=== PATIENT | female | born 1950 | race Caucasian/White ===

== ENCOUNTER → 2017-05-20 | Outpatient (CLI) | payer MEDICARE, OTHER ==
[2017-05-20 10:18] LABS: Basophils # (A) 0.1 k/uL (0-0.2); Basophils % (A) 1 %; CH 30.4; CHCM 31.6; Eosinophils # (A) 0.1 k/uL (0-0.7); Eosinophils % (A) 1 %; HCT 42.7 % (34.0-46.0); HDW 2.13; HGB 13.9 gm/dL (11.4-16.0); Luc # (Auto) 0.15; Luc % (Auto) 2; Lymphocytes # (A) 1.8 k/uL (1.0-4.8); Lymphocytes % (A) 19 %; MCH 31.3 pg (25.0-35.0); MCHC 32.5 g/dL (31.0-37.0); MCV 96.5 fL (80.0-100.0); Mean Platelet Volume 7.4; Monocytes # (A) 0.5 k/uL (0-1.0); Monocytes % (A) 6 %; Neutrophils # (A) 6.9 k/uL (1.3-7.7); Neutrophils % (A) 72 %; RBC 4.43 m/uL (3.80-5.40); RDW 13.2 % (11.5-15.5); WBC 9.6 k/uL (3.8-10.6); WBC (Perox) 9.62
[2017-05-20 10:19] LABS: Anion Gap 13 mmol/L; Blood Urea Nitrogen 15 mg/dL (7-17); Carbon Dioxide 23 mmol/L (22-30); Chloride 107 mmol/L (98-107); Non-African American GFR(MDRD) >60 (>60 ml/min/1.73 sqM); Potassium 4.6 mmol/L (3.5-5.1); Sodium 143 mmol/L (137-145)
== END | disposition home or self-care (01) ==
LOC: LABWHC1 09:25
PROVIDERS: ATTEND Obstetrics & Gynecology
DX: Z01.810 Encounter for preprocedural cardiovascular examination (principal); Z01.812 Encounter for preprocedural laboratory examination
CPT/HCPCS: 36415; 80051; 82565; 84520; 85025; 87086

== ENCOUNTER 2017-05-28 07:39 | Day surgery (SDC) | payer MEDICARE, OTHER ==
[2017-05-20 15:49] VITALS: BMI 28.3
[~2017-05-28 07:39] MED LIST: DEXAMETHASONE SOD PHOSPHATE 10 MG/ML 1 ML VIAL IV ONE; LEVOFLOXACIN 500MG-D5W PMX 500 MG in DEXTROSE/WATER 1 100ML.BAG IVPB ONE; ONDANSETRON 4 MG/2 ML VIAL IVP ONE
[2017-05-28] MEDS: LACTATED RINGERS 1,000 ML IV SCH (08:07)
[2017-05-28] MEDS ORDERED: LIDOCAINE 1% 20 ML VIAL (10MG/ML) FOR IV START INTRADERMA ONE (08:08)
[2017-05-28] MEDS ORDERED: SUCCINYLCHOLINE CHLORIDE 100 MG/5 ML SYR IV ONE (09:58)
[2017-05-28] MEDS ORDERED: PROPOFOL 10 MG/ML 20 ML VIAL IV ONE (09:58)
[2017-05-28] MEDS ORDERED: fentaNYL (PF) 50 MCG/ML 2 ML AMP ONE (09:58)
[2017-05-28] MEDS ORDERED: MIDAZOLAM 2 MG/2 ML VIAL ONE (09:58)
[2017-05-28] MEDS ORDERED: LIDOCAINE 1% INJ 10MG/ML (20 ML MDV) ONE (09:58)
[2017-05-28] MEDS ORDERED: KETOROLAC 30 MG/ML 1 ML VIAL ONE (09:58)
[2017-05-28] MEDS ORDERED: BUPIVACAIN-EPI 0.5%-1:200,000 30 ML VIAL SQ ONE (10:17)
[2017-05-28] MEDS ORDERED: BACITRACIN 500 UNIT/GM OINT 28.4 GM TUBE TOPICAL ONE (10:17)
[2017-05-28] MEDS ORDERED: GENTAMICIN IN NACL ISO-OSM PMX 80 MG/100 ML BAG IV ONE (10:17)
[2017-05-28] MEDS ORDERED: VASOPRESSIN 20 UNIT/ML 1 ML VIAL SQ ONE (10:18)
[2017-05-28] MEDS ORDERED: METOCLOPRAMIDE 5 MG/ML 2 ML VIAL IVP PRN (10:44)
[2017-05-28] MEDS ORDERED: ZOLPIDEM 5 MG TAB PO PRN (10:44)
[2017-05-28] MEDS ORDERED: IBUPROFEN 600 MG TAB PO PRN (10:44)
[2017-05-28] MEDS ORDERED: ONDANSETRON 4 MG/2 ML VIAL IVP PRN (10:44)
[2017-05-28] MEDS ORDERED: SIMETHICONE 80 MG CHEWABLE PO PRN (10:44)
--- NOTE | 2017-05-28 10:44 | P.OP ---
Date of Procedure: 05/28/17 Preoperative Diagnosis: Grade 3-4 cystocele, stress urinary incontinence Postoperative Diagnosis: Same Procedure(s) Performed: Anterior repair, mid urethral sling, cystoscopy Implants: Anesthesia: GETA Surgeon: Kim Wilkins Header Set Up Operator #1: Obey Desai Estimated Blood Loss (ml): 25 Urine output (ml): 200 Pathology: none sent Condition: stable Disposition: PACU Indications for Procedure: Operative Findings: Description of Procedure: Patient is brought to the operating suite where a general anesthetic is administered without difficulty. She is then placed in the dorsal lithotomy position. Antibiotics are given. The appropriate timeout is performed to assure proper patient and procedural identification. The perineal body is prepped and draped in usual sterile fashion. The bladder is drained for approximately 200 mL of clear yellow urine. A weighted speculum was placed into the vagina and the uterosacral cardinal ligament dimples are identified and grasped with Allis clamps. A scalpel is used across in between the 2 Allis clamps. The vaginal mucosa is then injected with dilute Pitressin solution. Metzenbaum scissors are used in the midline to underlying the mucosa from the underlying fascial plane. The mucosa is open to approximately 1.5 cm inferior to the urethra. Sponge rolled finger is used to separate the overlying mucosa from the underlying fascial plane. 2-0 Vicryl sutures are used then in an interrupted fashion to reduce the cystocele. Dr. Desai is in the operating room as assistant district attorney, and then complete his portion of the procedure. Please see separate dictation. After cystoscopy reveals a negative bladder cavity, the Metzenbaum scissors are used to trim the redundant mucosa. 2-0 Vicryl sutures used in a running locking fashion to close the mucosa for excellent reapproximation and hemostasis. The vagina is packed with a 1 inch iodophor gauze with basic tracing. All sponge needle and enhancement counts are correct at the and of our procedure. Patient is brought back to the recovery room in very good condition with stable vital signs including blood pressure 118/67, pulse 60, 99 % O2 saturation. Toradol is given prior to leaving the operative suite.
[2017-05-28] MEDS ORDERED: MORPHINE PCA 30 MG/30 ML SYRINGE IV PRN (10:45)
[2017-05-28] MEDS ORDERED: NALOXONE 0.4 MG/ML 1 ML VIAL IV PRN (10:45)
--- NOTE | 2017-05-28 11:06 | P.OP ---
Date of Procedure: 05/28/17 Preoperative Diagnosis: Stress urinary incontinence Postoperative Diagnosis: Stress urinary incontinence Procedure(s) Performed: [employer] Obturyx mid urethral sling and cystoscopy Implants: Anesthesia: JOSE FRANCISCOA Surgeon: Obey Desai Pathology: none sent Condition: stable Disposition: PACU Indications for Procedure: The patient is a 67-year-old female with pelvic organ prolapse and urinary leakage with coughing and straining. On examination the patient has a hypermobile bladder neck and the dynamic evaluation has confirmed stress urinary incontinence. Elevation of the periurethral tissue stopped the leakage. The patient also has a grade 2-[address] Wilkins plans anterior colporrhaphy. A synthetic mid urethral sling will be performed under the same anesthetic for treatment of the stress incontinence. Operative Findings: Description of Procedure: The patient was taken to the operating suite where general anesthesia via orotracheal intubation was instituted. The patient was placed in the dorsal lithotomy position with her lower legs suspended on padded Yogi stirrups. Pneumatic compression stockings were applied to the lower legs. A Betadine douche followed by a Betadine prep to the lower abdomen and groins and perineum was then performed. Dr. Wilkins initially began by making a midline incision in the anterior vagina which was extended to approximately the mid urethral area. She then dissected the vaginal mucosa away from the underlying tissue Dr. Wilkins then placed the sutures for the anterior colporrhaphy. A 16 Fr Perez catheter was then inserted to define the bladder neck. 7 or 8 mm incisions were made in the right and left groin at a level adjacent to the clitoris. A curved introducer was passed through the right groin incision, through the obturator foramen superior to the inferior pubic ramus and then directed out lateral to the mid urethra with a finger placed in the vaginal incision. One and of the Obturyx graft was attached to the introducer which was pulled back out into the groin incision. An identical procedure was then performed on the left side where a curved introducer was passed through the groin incision, directed through the obturator foramen superior to the inferior pubic ramus and then out lateral to the mid urethra with a finger placed in the vaginal incision. The other end of the graft was attached to the introducer which was then pulled back out into the groin incision. The Perez catheter was removed. Cystoscopy was performed using the 17[place] sheath and 30 lens. The bladder was examined. Both ureteral orifices were of normal location and configuration and effluxed clear urine. The bladder was free of tumor foreign body and perforation. The cystoscope was withdrawn and the 16-[place] Perez catheter was reinserted. A Kimmy clamp was then placed between the mid urethra and graft and the graft was pulled up to the Kimmy clamp. The plastic sheathing of the graft was removed. The ends the graft were then trimmed below the skin level in the right and left groin. Dr. Wilkins completed the procedure by trimming the redundant vaginal tissue and closing it with running locked 2-0 Vicryl. Bacitracin impregnated iodoform gauze was then placed into the vagina for packing. Mastisol and Steri-Strips were placed over the groin incisions A she tolerated the procedure well and left the operative room awake and in satisfactory condition blood loss during the complete procedure was less than 25 mL final sponge needle and is wearing cons were reported as correct patient was returned to the recovery room awake extubated and in satisfactory condition.
[2017-05-28] MEDS: HYDROmorphone 1 MG/ML 1 ML SYRINGE IVP PRN ×2 (11:23→11:33)
[2017-05-28] MEDS: KETOROLAC 30 MG/ML 1 ML VIAL IVP PRN (16:29)
[2017-05-29 01:23] VITALS: RESP 16
[2017-05-29] MEDS: LACTATED RINGERS 1,000 ML IV SCH (02:54)
[2017-05-29] MEDS: KETOROLAC 30 MG/ML 1 ML VIAL IVP PRN (04:57)
--- NOTE | 2017-05-29 07:05 | P.DS ---
Providers Date of admission: 05/28/17 16:30 Attending physician: Kim Wilkins [facility] Course: This is a 67-year-old white female who presented with an increasingly symptomatic grade 3 cystocele and stress urinary incontinence. Preoperative evaluation was consistent with same, and patient elected to proceed with cystocele repair and transvaginal tape procedure per Dr. weiner her. Please see dictated history and physical for details. Patient underwent cystocele repair and transvaginal tape on 05/28/2017 without difficulty. Vaginal packing was placed. Cystoscopy after procedure was negative. Please see dictated operative notes for details. This morning the patient is doing well. She complains of minimal pain. Vaginal packing and Perez catheter had been removed. Bladder training has commenced. Patient is passing flatus and tolerating regular diet. She is ambulating without issue. Vital signs upon stable and she remains afebrile. She denies CVA tenderness, abdomen is soft and nontender, extremities are negative, chest is clear. Patient will likely be discharged home later today in very good condition. This is pending successful void and post void residual measurement. She will use [id number] medications as needed for pain. I have asked her to call me with any fevers shakes or chills, foul smelling or bloody vaginal drainage, with any pain not alleviated by [id number] products, or indeed with any concerns. She will follow-up with me in the office in 2 weeks, and follow-up with Dr. weiner are as per his recommendations. Resume all home medications. Patient Condition at Discharge: Good Plan - Discharge Summary New Discharge Prescriptions: No Action Meloxicam [Mobic] 7.5 mg PO DAILY Ranitidine HCl [Zantac] 150 mg PO BID Gabapentin [Neurontin] 800 mg PO QID Tiotropium 18 Mcg/Puff [Spiriva] 1 cap INHALATION RT-DAILY Albuterol Inhaler [Ventolin Hfa Inhaler] 1 puff INHALATION RT-Q4H PRN PRN Reason: Shortness Of Breath Nicotine 14Mg/24Hr Patch [Habitrol 14Mg/24Hr Patch] 1 patch TRANSDERM DAILY Discharge Medication List Albuterol Inhaler [Ventolin Hfa Inhaler] 1 puff INHALATION RT-Q4H PRN 05/20/17 [ History] Gabapentin [Neurontin] 800 mg PO QID 05/20/17 [History] Meloxicam [Mobic] 7.5 mg PO DAILY 05/20/17 [History] Ranitidine HCl [Zantac] 150 mg PO BID 05/20/17 [History] Tiotropium 18 Mcg/Puff [Spiriva] 1 cap INHALATION RT-DAILY 05/20/17 [History] Nicotine 14Mg/24Hr Patch [Habitrol 14Mg/24Hr Patch] 1 patch TRANSDERM DAILY 06/03 [History] Follow up Appointment(s)/Referral(s): Kim Wilkins MD [STAFF PHYSICIAN] - 2 Weeks Discharge Disposition: HOME SELF-CARE
[2017-05-29] MEDS: Acetaminophen-Codeine 300-30mg TAB PO PRN ×2 (07:30→11:38)
--- NOTE | 2017-05-29 07:46 | P.PN ---
Progress Note - Text Patient is afebrile and comfortable now that her catheter and vaginal packing have been removed. She has minimal vaginal drainage. Postvoid residual will be checked this morning and if it is low she will be discharged and will be seen back by me early next week. She is to refrain from any heavy lifting or straining and has no dietary limitations. She will continue her preoperative medications.
[2017-05-29 10:41] VITALS: BP 108/62; PULSE 70; TEMP 97.8
== END 2017-05-29 11:55 | disposition home or self-care (01) ==
LOC: OR 07:39 → 6PED 10:44 → OR 16:30 → 6PED 23:32
PROVIDERS: ADMIT Obstetrics & Gynecology; ATTEND Obstetrics & Gynecology
DX: N39.46 Mixed incontinence (principal); J44.9 Chronic obstructive pulmonary disease, unspecified; N81.10 Cystocele, unspecified; Z87.891 Personal history of nicotine dependence; F41.9 Anxiety disorder, unspecified; Z79.82 Long term (current) use of aspirin; Z79.1 Long term (current) use of non-steroidal anti-inflammatories (NSAID); Z79.899 Other long term (current) drug therapy; K21.9 Gastro-esophageal reflux disease without esophagitis
CPT/HCPCS: 57240; 57288; 86900; 86901; 86850; G0378 ×2; C1771; C2627; J1580; J2250; J1100; J2405; J1956; J2001; J3010; J1885 ×2; J1170; J0330; J2704; J2270

== ENCOUNTER → 2019-06-10 | Outpatient (CLI) | payer MEDICARE, OTHER ==
[~2019-06-10] MED LIST changes: +DENOSUMAB 60 MG/ML 1 ML SYRINGE SQ ONE; -DEXAMETHASONE SOD PHOSPHATE 10 MG/ML 1 ML VIAL IV ONE; -LEVOFLOXACIN 500MG-D5W PMX 500 MG in DEXTROSE/WATER 1 100ML.BAG IVPB ONE; -ONDANSETRON 4 MG/2 ML VIAL IVP ONE
[2019-06-10 14:30] VITALS: BP 143/88; PULSE 65; RESP 16; TEMP 97.7
== END | disposition home or self-care (01) ==
LOC: PROCWHC3 14:05
PROVIDERS: ATTEND Family Medicine
DX: M47.9 Spondylosis, unspecified (principal); M41.9 Scoliosis, unspecified
CPT/HCPCS: 96372; J0897

== ENCOUNTER 2019-10-22 12:42 | Emergency (ER) | payer MEDICARE, OTHER ==
--- NOTE | 2019-10-22 14:47 | CT ---
EXAMINATION TYPE: CT brain amita unger DATE OF EXAM: 10/22/2019 COMPARISON: None HISTORY: Left sided injury today with no LOC CT DLP: 1198.5 mGycm, Automated exposure control for dose reduction was used. CONTRAST: Patient injected with 0 mL of Isovue 300. CT of the brain is performed utilizing 3 mm thick sections through the posterior fossa and 3 mm thick sections through the remaining calvarium. Study is performed within 24 hours of arrival to the hospital. No abnormal hyperdensity is present to suggest an acute intracranial hemorrhage. No mass lesion is evident. No acute infarcts are evident. Mild periventricular white matter hypodensity is present, likely on t he basis of chronic white matter ischemic changes. Ventricles and sulci are appropriate for the patient age. Paranasal sinuses and mastoid air cells within the [id number] are clear. IMPRESSIONS: 1. Mild chronic appearing periventricular white matter ischemic changes CT cervical spine. COMPARISON: None CT of the cervical spine is performed in the axial plane at 2 mm thick sections. Reconstructed image s in the coronal, and sagittal plane are reviewed on the computer. No acute fractures are evident. There is a kyphosis centered at C5-6. There is disc space narrowing is present. Some endplate spurring is present C5-6 with mild anterior t hecal sac contact. Vertebral body heights are preserved. No spinal canal stenosis is evident. No neural foraminal stenosis is evident. IMPRESSIONS: 1. Mild degenerative disc changes diffusely throughout the cervical spine
--- NOTE | 2019-10-22 14:56 | ED ---
Head Injury HPI - General Chief complaint: Head Injury Stated complaint: Head injury Time Seen by Provider: 10/22/19 13:09 Source: patient, RN notes reviewed Mode of arrival: ambulatory Limitations: no limitations - History of Present Illness Initial comments: 69-year-old female presents emergency Department with chief complaint head injury. Patient states his happened on Saturday. Patient states that she had another fall herself striking her on the left side of her head. Patient was a left-sided headache, neck pain. Patient states that she was seen by her orthopedic physician for left wrist pain and was advised to come here for evaluation. Patient denies any focal weakness has had slight nausea no vomiting no blurred vision denies any chest pain or shortness breath. - Related Data Home Medications Medication Instructions Recorded Confirmed Albuterol Inhaler [Ventolin Hfa 1 puff INHALATION RT-Q4H PRN 05/20/17 06/10/19 Inhaler] Gabapentin [Neurontin] 800 mg PO QID 05/20/17 06/10/19 Meloxicam [Mobic] 7.5 mg PO DAILY 05/20/17 06/10/19 Ranitidine HCl [Zantac] 150 mg PO BID 05/20/17 06/10/19 Tiotropium 18 Mcg/Puff [Spiriva] 1 cap INHALATION RT-DAILY 05/20/17 06/10/19 Acetaminophen [Tylenol Extra 1,000 mg PO QID PRN 06/10/19 06/10/19 Strength] Naproxen Sodium [Aleve] 2 tab PO DIRECTED PRN 06/10/19 06/10/19 traMADol HCL [Ultram] 50 mg PO TID 06/10/19 06/10/19 Allergies/Adverse reactions: Allergies Allergy/AdvReac Type Severity Reaction Status Date / Time No Known Allergies Allergy Verified 10/22/19 12:52 Review of Systems ROS Statement: Those systems with pertinent positive or pertinent negative responses have been documented in the HPI. ROS Other: All systems not noted in ROS Statement are negative. Past Medical History Past Medical History: COPD, CVA/TIA, Osteoarthritis (OA) Additional Past Medical History / Comment(s): "MINI STROKES", BLADDER LEAKAGE, CHRONIC NECK PAIN , History of Any Multi-Drug Resistant Organisms: None Reported Past Surgical History: Appendectomy, Cholecystectomy Additional Past Surgical History / Comment(s): DENTAL SURGERY ,EXCISION GANGLION CYST -RIGHT HAND Past Anesthesia/Blood Transfusion Reactions: No Reported Reaction Past Psychological History: Anxiety Smoking Status: Current every day smoker Past Alcohol Use History: None Reported Past Drug Use History: None Reported - Past Family History Mother Family Medical History: Cancer General Exam Limitations: no limitations General appearance: alert, in no apparent distress Head exam: Present: atraumatic, normocephalic, normal inspection Eye exam: Present: normal appearance, PERRL, EOMI. Absent: scleral icterus, conjunctival injection, periorbital swelling ENT exam: Present: normal exam, mucous membranes moist Neck exam: Present: normal inspection, full ROM. Absent: tenderness, meningismus, lymphadenopathy Respiratory exam: Present: normal lung sounds bilaterally. Absent: respiratory distress, wheezes, rales, rhonchi, stridor Cardiovascular Exam: Present: regular rate, normal rhythm, normal heart sounds. Absent: systolic murmur, diastolic murmur, rubs, gallop, clicks Neurological exam: Present: alert, oriented X3, CN II-XII intact, reflexes normal. Absent: motor sensory deficit Course Vital Signs 10/22/19 10/22/19 12:49 15:15 Temperature 97.5 F L 97.9 F Pulse Rate 65 84 Respiratory 16 18 Rate Blood Pressure 165/91 166/89 O2 Sat by Pulse 99 97 Oximetry Medical Decision Making - Medical Decision Making CT of the brain and C-spine are negative for acute findings. Patient was discharged in stable condition patient will return for any worsening symptoms. Disposition Clinical Impression: Head injury, Neck pain Disposition: HOME SELF-CARE Condition: Stable Instructions (If sedation given, give patient instructions): Head Injury (ED) Additional Instructions: Please return to the Emergency Department if symptoms worsen or any other concerns. Is patient prescribed a controlled substance at d/c from ED?: No Referrals: Darian Davidson MD [Primary Care Provider] - 1-2 days Time of Disposition: 14:56
[2019-10-22 15:16] VITALS: BP 166/89; PULSE 84; RESP 18; TEMP 97.9
== END 2019-10-22 15:15 | disposition home or self-care (01) ==
LOC: EC 12:42
DX: S09.90XA Unspecified injury of head, initial encounter (principal); M54.2 Cervicalgia; J44.9 Chronic obstructive pulmonary disease, unspecified; M19.90 Unspecified osteoarthritis, unspecified site; F41.9 Anxiety disorder, unspecified; F17.200 Nicotine dependence, unspecified, uncomplicated; Z79.51 Long term (current) use of inhaled steroids; Z79.1 Long term (current) use of non-steroidal anti-inflammatories (NSAID); Z79.899 Other long term (current) drug therapy; Z86.73 Personal history of transient ischemic attack (TIA), and cerebral infarction without residual deficits; W17.89XA Other fall from one level to another, initial encounter
CPT/HCPCS: 70450; 72125; 99284

== ENCOUNTER → 2019-11-30 | Outpatient (CLI) | payer MEDICARE, OTHER ==
[2019-11-30 20:23] LABS: Anti-DNA, DS unit <1.0 IU/mL; Anti-Smith Ab Interp NEGATIVE (NEGATIVE); Cyclic Citrull Pep IgG Unit <0.5 U/mL; Cyclic Citrullinated Pep IgG NEGATIVE (NEGATIVE); DNA Double-Stranded NEGATIVE (NEGATIVE); JO-1 IgG Antibody <0.2 AI; Scleroderma SC-70 Ab <0.2 AI
== END | disposition home or self-care (01) ==
LOC: LABWHC1 11:57
PROVIDERS: ATTEND Nurse Practitioner Family
DX: M25.50 Pain in unspecified joint (principal)
CPT/HCPCS: 36415; 83516; 86038; 86200; 86225; 86235

== ENCOUNTER 2023-04-03 17:55 | Inpatient (IN) | payer MEDICARE, OTHER ==
--- NOTE | 2023-04-03 18:32 | ED ---
General Adult HPI - General Chief complaint: Altered Mental Status Stated complaint: AMS Time Seen by Provider: 04/03/23 18:13 Source: EMS Mode of arrival: EMS Limitations: no limitations - History of Present Illness Initial comments: Dictation was produced using [employer] dictation software. please excuse any grammatical, word or spelling errors. Chief Complaint: 72-year-old female presents to the emergency department for her syncopal episode History of Present Illness: Patient is a 2-year-old female. Patient present illness obtained from boyfriend son at the bedside. History also obtained from patient herself. Patient is suitable episode. She was at her boyfriends house eating when she became unresponsive. She had food stuck in her mouth. She do not have any convulsive activity. She was completely out of it for a couple minutes. Patient has chronic pain. She is currently on pain medications. Exposed of a computed tomography scan of her right upper extremity to evaluate for causes of right upper extremity pain. The ROS documented in this emergency department record has been reviewed and confirmed by me. Those systems with pertinent positive or negative responses have been documented in the HPI. All other systems are other negative and/or noncontributory. - Related Data Home Medications Medication Instructions Recorded Confirmed Acetaminophen [Tylenol Extra 1,000 mg PO QID PRN 06/10/19 04/03/23 Strength] HYDROcodone/APAP 10-325MG [[place] 1 tab PO TID PRN 04/03/23 04/03/23 10-325] Naloxone HCl [Narcan] 4 mg NASAL DIRECTED PRN 04/03/23 04/03/23 Omeprazole [PriLOSEC] 20 mg PO DAILY 04/03/23 04/03/23 tiZANidine [Zanaflex] 4 mg PO DAILY 04/03/23 04/03/23 Allergies Allergy/AdvReac Type Severity Reaction Status Date / Time codeine Allergy Rash/Hives Verified 04/03/23 19:30 Review of Systems ROS Statement: Those systems with pertinent positive or pertinent negative responses have been documented in the HPI. ROS Other: All systems not noted in ROS Statement are negative. Past Medical History Past Medical History: COPD, CVA/TIA, Osteoarthritis (OA) Additional Past Medical History / Comment(s): "MINI STROKES", BLADDER LEAKAGE, CHRONIC NECK PAIN , History of Any Multi-Drug Resistant Organisms: None Reported Past Surgical History: Appendectomy, Cholecystectomy Additional Past Surgical History / Comment(s): DENTAL SURGERY ,EXCISION GANGLION CYST -RIGHT HAND Past Anesthesia/Blood Transfusion Reactions: No Reported Reaction Past Psychological History: Anxiety Smoking Status: Former smoker Past Alcohol Use History: Rare Past Drug Use History: None Reported - Past Family History Mother Family Medical History: Cancer General Exam - General Exam Comments Initial Comments: PHYSICAL EXAM: General Impression: Alert and oriented x3, not in acute distress, mildly pale HEENT: Normocephalic atraumatic, extra-ocular movements intact, pupils equal and reactive to light bilaterally, dry mucous membranes. Cardiovascular: Heart regular rate and rhythm Chest: Able to complete full sentences, no retractions, no tachypnea Abdomen: abdomen soft, non-tender, non-distended, no organomegaly Musculoskeletal: Pulses present and equal in all extremities, no peripheral edema Motor: no focal deficits noted Neurological: CN II-XII grossly intact, no focal motor or sensory deficits noted Skin: Intact with no visualized rashes Psych: Normal affect and mood Limitations: no limitations Course Vital Signs 04/03/23 04/03/23 04/03/23 17:57 18:16 19:31 Temperature 97.7 F Pulse Rate 62 96 Respiratory 18 18 18 Rate Blood Pressure 83/33 94/51 O2 Sat by Pulse 95 97 Oximetry 04/03/23 19:33 Temperature Pulse Rate 85 Respiratory 18 Rate Blood Pressure 80/54 O2 Sat by Pulse 96 Oximetry EKG Findings - EKG Comments: EKG Findings:: My EKG interpretation: Ventricular rate 61, sinus rhythm,. 160, QRS 82, QTc 4:30. No UT prolongation, no QTC prolongation, no ST or T-wave changes noted. Overall, this EKG is unremarkable Medical Decision Making - Medical Decision Making Was pt. sent in by a medical professional or institution (, PA, QUILL STRIPPER, urgent care, hospital, or residential...) When possible be specific @ -No Did you speak to anyone other than the patient for history (EMS, parent, family, police, friend...)? What history was obtained from this source @ -No Did you review nursing and triage notes (agree or disagree)? Why? @ -I reviewed and agree with nursing and triage notes Were old charts reviewed (outside hosp., previous admission, EMS record, old EKG, old radiological studies, urgent care reports/EKG's, residential records)? Report findings @ -Not applicable Differential Diagnosis (chest pain, altered mental status, abdominal pain women, abdominal pain men, vaginal bleeding, musculoskeletal, weakness, fever, dyspnea, syncope, headache, dizziness, GI bleed, back pain, seizure, CVA, palpatations, mental health)? @ -Differential Weakness: Hypoglycemia, shock, sepsis, hyponatremia, anemia, infection, ND, ETOH, adverse medicine reaction, overdose, stroke, this is not meant to be an all-inclusive list. Differential Syncope: Valvular disease, hypertrophic cardiomyopathy, pulmonary embolism, tamponade, tachycardia, bradycardia, ND, hypovolemia, hemorrhage, dissection, anemia, intracranial hemorrhage, seizure, hypoglycemia, carbon monoxide poisoning, this is not meant to be an all-inclusive list. EKG interpreted by me (3pts min.). @ -See above X-rays interpreted by me (1pt min.). @ -None done CT interpreted by me (1pt min.). @ -None done U/S interpreted by me (1pt. min.). @ -None done What testing was considered but not performed or refused? (CT, X-rays, U/S, labs)? Why? @ -None What meds were considered but not given or refused? Why? @ -None Did you discuss the management of the patient with other professionals (prof mijares i.eOvidio Reilly, PA, QUILL STRIPPER, lab, RT, psych nurse, marriage and family social worker, advanced manufacturing engineer, teacher, tactical response group officer, rn case management)? Give summary @ -Labs and imaging an vital signs trend's were discussed with Dr. Viveros for admission Was smoking cessation discussed for >3mins.? @ -No Was critical care preformed (if so, how long)? @ -Yes, 33 minutes Were there social determinants of health that impacted care today? How? (Homelessness, low income, unemployed, alcoholism, drug addiction, transportation, low edu. Level, literacy, decrease access to med. care, penitentiary, rehab)? @ -No Was there de-escalation of care discussed even if they declined (Discuss DNR or withdrawal of care, Hospice)? DNR status @ -No What co-morbidities impacted this encounter? (DM, HTN, Smoking, COPD, CAD, Cancer, CVA, ARF, Chemo, Hep., AIDS, mental health diagnosis, sleep apnea, morbid obesity)? @ -None Was patient admitted / discharged? Hospital course, mention meds given and route, prescriptions, significant lab abnormalities, going to OR and other pertinent info. @ -72 Year-old female presents after syncopal event today. Patient has no known cardiac history. Initial vital signs shows hypertension. Patient was given multiple boluses of IV fluids with improvement. Laboratory evaluation obtained. Hemoglobin is 9.2. No recent comparable labs. From 2017 she had a hemoglobin of 13.9. Coag panel is unremarkable. Metabolic panel shows mild hypokalemia. Troponin is negative. Rest of labs unremarkable. Patient will be admitted to the hospital. Suspect that patient's hypotension secondary to dehydration. Undiagnosed new problem with uncertain prognosis? @ -No Drug Therapy requiring intensive monitoring for toxicity (Heparin, Nitro, Insulin, Cardizem)? @ -No Were any procedures done? @ -No Diagnosis/symptom? Acute, or Chronic, or Acute on Chronic? Uncomplicated (without systemic symptoms) or Complicated (systemic symptoms)? @ -1. Acute syncope, hypertension secondary to dehydration Side effects of treatment? @ -No Exacerbation, Progression, or Severe Exacerbation? @ -No Poses a threat to life or bodily function? How? (Chest pain, USA, ND, pneumonia, PE, COPD, DKA, ARF, appy, cholecystitis, CVA, Diverticulitis, Homicidal, Suicidal, threat to staff... and all critical care pts) @ -yes - Lab Data Result diagrams: 04/03/23 18:42 04/03/23 18:42 Lab Results 04/03/23 04/03/23 04/03/23 Range/Units 18:42 18:42 18:42 WBC 8.6 (3.8-10.6) k/uL RBC 3.00 L (3.80-5.40) m/uL Hgb 9.2 L (11.4-16.0) gm/dL Hct 28.9 L (34.0-46.0) % MCV 96.4 (80.0-100.0) fL MCH 30.8 (25.0-35.0) pg MCHC 31.9 (31.0-37.0) g/dL RDW 13.2 (11.5-15.5) % Plt Count 387 (150-450) k/uL MPV 8.1 Neutrophils % 76 % Lymphocytes % 14 % Monocytes % 6 % Eosinophils % 2 % Basophils % 0 % Neutrophils # 6.5 (1.3-7.7) k/uL Lymphocytes # 1.2 (1.0-4.8) k/uL Monocytes # 0.5 (0-1.0) k/uL Eosinophils # 0.2 (0-0.7) k/uL Basophils # 0.0 (0-0.2) k/uL PT 11.7 (9.0-12.0) sec INR 1.1 (<1.2) APTT 26.8 (22.0-30.0) sec Sodium 140 (137-145) mmol/L Potassium 3.0 L (3.5-5.1) mmol/L Chloride 109 H (98-107) mmol/L Carbon Dioxide 21 L (22-30) mmol/L Anion Gap 10 mmol/L BUN 16 (7-17) mg/dL Creatinine 0.76 (0.52-1.04) mg/dL Est GFR (CKD-EPI)AfAm 90 (>60 ml/min/1.73 sqM) Est GFR (CKD-EPI)NonAf 78 (>60 ml/min/1.73 sqM) Glucose 113 H (74-99) mg/dL Plasma Lactic Acid Sandro (0.7-2.0) mmol/L Calcium 8.2 L (8.4-10.2) mg/dL Magnesium 1.8 (1.6-2.3) mg/dL Total Bilirubin 0.5 (0.2-1.3) mg/dL AST 15 (14-36) U/L ALT 11 (4-34) U/L Alkaline Phosphatase 69 (38-126) U/L Troponin I (0.000-0.034) ng/mL Total Protein 5.5 L (6.3-8.2) g/dL Albumin 2.7 L (3.5-5.0) g/dL 04/03/23 04/03/23 Range/Units 18:42 18:42 WBC (3.8-10.6) k/uL RBC (3.80-5.40) m/uL Hgb (11.4-16.0) gm/dL Hct (34.0-46.0) % MCV (80.0-100.0) fL MCH (25.0-35.0) pg MCHC (31.0-37.0) g/dL RDW (11.5-15.5) % Plt Count (150-450) k/uL MPV Neutrophils % % Lymphocytes % % Monocytes % % Eosinophils % % Basophils % % Neutrophils # (1.3-7.7) k/uL Lymphocytes # (1.0-4.8) k/uL Monocytes # (0-1.0) k/uL Eosinophils # (0-0.7) k/uL Basophils # (0-0.2) k/uL PT (9.0-12.0) sec INR (<1.2) APTT (22.0-30.0) sec Sodium (137-145) mmol/L Potassium (3.5-5.1) mmol/L Chloride (98-107) mmol/L Carbon Dioxide (22-30) mmol/L Anion Gap mmol/L BUN (7-17) mg/dL Creatinine (0.52-1.04) mg/dL Est GFR (CKD-EPI)AfAm (>60 ml/min/1.73 sqM) Est GFR (CKD-EPI)NonAf (>60 ml/min/1.73 sqM) Glucose (74-99) mg/dL Plasma Lactic Acid Sandro 1.4 (0.7-2.0) mmol/L Calcium (8.4-10.2) mg/dL Magnesium (1.6-2.3) mg/dL Total Bilirubin (0.2-1.3) mg/dL AST (14-36) U/L ALT (4-34) U/L Alkaline Phosphatase (38-126) U/L Troponin I <0.012 (0.000-0.034) ng/mL Total Protein (6.3-8.2) g/dL Albumin (3.5-5.0) g/dL Disposition Clinical Impression: Hypotension Disposition: ADMITTED IP TO THIS [facility] Condition: Fair Is patient prescribed a controlled substance at d/c from ED?: No Referrals: Mulu Love DO [Primary Care Provider] - 1-2 days Decision Time: 20:54
[2023-04-03] MEDS ORDERED: SODIUM CHLORIDE 0.9% 1,000 ML IV STA (18:54)
[2023-04-03] MEDS ORDERED: NALOXONE 0.4 MG/ML 1 ML VIAL IVP STA (18:54)
[2023-04-03 19:08] LABS: Basophils % (A) 0 %; Eosinophils # (A) 0.2 k/uL (0-0.7); Eosinophils % (A) 2 %; HCT 28.9 % (34.0-46.0); HGB 9.2 gm/dL (11.4-16.0); Lymphocytes # (A) 1.2 k/uL (1.0-4.8); Lymphocytes % (A) 14 %; MCH 30.8 pg (25.0-35.0); MCHC 31.9 g/dL (31.0-37.0); MCV 96.4 fL (80.0-100.0); Mean Platelet Volume 8.1; Monocytes # (A) 0.5 k/uL (0-1.0); Monocytes % (A) 6 %; Neutrophils # (A) 6.5 k/uL (1.3-7.7); Neutrophils % (A) 76 %; Platelet Count 387 k/uL (150-450); RDW 13.2 % (11.5-15.5); WBC 8.6 k/uL (3.8-10.6)
[2023-04-03 19:37] LABS: Albumin 2.7 g/dL (3.5-5.0); Calcium 8.2 mg/dL (8.4-10.2); INR 1.1 (<1.2); Magnesium 1.8 mg/dL (1.6-2.3); Partial Thromboplastin Time 26.8 sec (22.0-30.0); Prothrombin Time 11.7 sec (9.0-12.0); Total Bilirubin 0.5 mg/dL (0.2-1.3); Total Protein 5.5 g/dL (6.3-8.2)
[2023-04-03] MEDS: SODIUM CHLORIDE 0.9% 1,000 ML IV SCH (22:04)
[2023-04-04 05:55] LABS: Appearance,Urine Clear (Clear); Bilirubin,Urine Negative (Negative); Blood,Urine Negative (Negative); Color,Urine Light Yellow; Glucose,Urine (UA) Negative (Negative); Ketones,Urine Negative (Negative); Leukocyte Esterase,Urine Negative (Negative); Nitrite,Urine Negative (Negative); Protein,Urine Negative (Negative); Specific Gravity,Urine 1.011 (1.001-1.035); Urobilinogen,Urine <2.0 mg/dL (<2.0)
[2023-04-04 06:20] LABS: Amphetamine Screen,Urine Not Detected (NotDetected); Barbiturate Screen,Urine Not Detected (NotDetected); Benzodiazepines Screen,Urine Detected (NotDetected); Cocaine Screen,Urine Not Detected (NotDetected); Methadone Screen, Urine Not Detected (NotDetected); Opiate Screen,Urine Detected (NotDetected); Oxycodone Screen, Urine Not Detected (NotDetected); Phencyclidine Screen,Urine Not Detected (NotDetected); Tricyclic Antidepressant,Urine Not Detected (NotDetected); Urn Cannabinoid Scrn Detected (NotDetected)
[2023-04-04] MEDS: HYDROcodone/APAP 5-325MG 1 EACH TAB PO PRN ×3 (08:38→21:03)
[2023-04-04] MEDS: SODIUM CHLORIDE 0.9% 1,000 ML IV SCH ×3 (10:10→21:03)
[2023-04-04] MEDS: POTASSIUM CHLORIDE ER 20 MEQ TAB.ER PO SCH ×4 (12:44→23:02)
--- NOTE | 2023-04-04 12:49 | CA ---
Transthoracic Echo Report Name: Mehnaz Carrasco Age: 72 Gender: F : 1950 Exam Date: 04/04/2023 09:57 Exam Location: [facility] Ht (in): 62 Wt (lb): 129 Ordering Physician: Abhi Lam MD ([id number]) Attending/Referring Phys: Carole ZHANG Machine Stamper Leonela Casas RDCS Procedure CPT: Indications: Syncope Cardiac Hx: Technical Quality: Fair Contrast 1: Total Dose (mL): Contrast 2: Total Dose (mL): MEASUREMENTS (Male / Female) Normal Values 2D ECHO LV Diastolic Diameter PLAX 3.3 cm 4.2 - 5.9 / 3.9 - 5.3 cm LV Systolic Diameter PLAX 2.5 cm IVS Diastolic Thickness 1.4 cm 0.6 - 1.0 / 0.6 - 0.9 cm LVPW Diastolic Thickness 1.4 cm 0.6 - 1.0 / 0.6 - 0.9 cm LV Relative Wall Thickness 0.8 RV Internal Dim ED PLAX 2.8 cm LA Volume 31.0 cm??? 18 - 58 / 22 - 52 cm??? M-MODE Aortic Root Diameter MM 3.0 cm LA Systolic Diameter MM 3.2 cm LA Ao Ratio MM 1.1 AV Cusp Separation MM 1.9 cm DOPPLER AV Peak Velocity 167.7 cm/s AV Peak Gradient 11.3 mmHg AV Mean Velocity 104.9 cm/s AV Mean Gradient 5.2 mmHg AV Velocity Time Integral 25.6 cm LVOT Peak Velocity 126.3 cm/s LVOT Peak Gradient 6.4 mmHg LVOT Velocity Time Integral 25.3 cm MV Area PHT 3.0 cm??? Mitral E Point Velocity 61.2 cm/s Mitral A Point Velocity 80.9 cm/s Mitral E to A Ratio 0.8 MV Deceleration Time 252.3 ms TR Peak Velocity 207.5 cm/s TR Peak Gradient 17.2 mmHg Right Ventricular Systolic Press 21.8 mmHg FINDINGS Left Ventricle Moderately increased left ventricular wall thickness. Left ventricular cavity size normal. No obvious regional wall motion abnormalities. Left ventricular ejection fraction is estimated at 55-60 %. Right Ventricle Normal right ventricular size and function. Right ventricular systolic pressure within normal limits. Right Atrium Normal right atrial size. Left Atrium Normal left atrial size. Mitral Valve Structurally normal mitral valve. Mitral valve thickened. Mild mitral annular calcification. Aortic Valve Trileaflet aortic valve. Diffuse thickening (sclerosis) of the aortic valve cusps without reduced excursion. No aortic valve stenosis or regurgitation. Tricuspid Valve Mild tricuspid regurgitation. Pulmonic Valve Trace pulmonic regurgitation. Pericardium No pericardial effusion. Aorta Normal size aortic root and proximal ascending aorta. CONCLUSIONS Normal LV size and systolic function. There is mild concentric LVH. Mild mitral and the calcification mild mitral and tricuspid regurgitation no pulmonary hypertension no pericardial effusion Previewed by: Dr. Laisha Berg MD (Electronically Signed) Final Date: 04 Apr 2023 12:48
--- NOTE | 2023-04-04 14:23 | CONS ---
CONSULTATION CHIEF COMPLAINT: Loss of consciousness. HISTORY OF PRESENT ILLNESS: The patient was brought to the emergency room by her boyfriend who apparently found her to be unresponsive at home. We were told that she had food stuck in her mouth following which she had sudden loss of consciousness. She received Narcan following which she woke up and has been doing fine since. The patient has had a recent fall and had injury involving right upper extremity and is taking pain pills for the same. At the time of my evaluation, the patient appears comfortable at rest and is free of symptoms. EKG shows sinus rhythm with PVCs, had troponin that is negative. Hemoglobin is low, potassium is low. There is no prior history of coronary artery disease or congestive heart failure. There is no prior history of syncope. The patient does not narrate bladder or bowel incontinence or focal neurological deficits. There are no seizures. The patient's loss of consciousness could be related to the pain pills that she was on. PAST MEDICAL HISTORY: Negative for hypertension, diabetes, dyslipidemia. MEDICATIONS AT HOME: 1. Zanaflex. 2. Prilosec. 3. Narcan. 4. [place]. 5. Tylenol. ALLERGIES: To codeine. FAMILY HISTORY: Negative for premature coronary artery disease. SOCIAL HISTORY: Negative for smoking, EtOH abuse, or drug abuse. REVIEW OF SYSTEMS: HEENT: Unremarkable. CARDIAC: As described above. RESPIRATORY: Negative. GI: Negative. GENITOURINARY: Negative. ALLERGY/IMMUNOLOGY: Negative. SKIN: Negative. MUSCULOSKELETAL: Significant for arthritis. PSYCHOSOCIAL: Negative. DERM: Negative. CONSTITUTIONAL: Negative. ONCOLOGICAL: Negative. FALSEWORK BUILDER: Negative. Rest of the system review is not relevant. PHYSICAL EXAMINATION: GENERAL: Comfortable at rest. VITAL SIGNS: Stable. NECK: There is no jugular venous distention. Carotid upstroke is normal. There is no bruit. CHEST: Reveals good air entry bilaterally. HEART: Reveals first and second heart sounds. No gallop. Has a systolic murmur at the left lower sternal border. ABDOMEN: Soft. EXTREMITIES: Did not reveal any edema. Peripheral pulses are felt. ASSESSMENT: Syncope, rule out cardiac causes. PLAN: The patient's syncope seems to be related to the pain pills that she was on. She really responded to Narcan immediately. I will obtain a 2D echo and if this looks normal from cardiac standpoint, she does not require any other workup. We may consider an outpatient Holter and if necessary a stress test. MMODL / IJN: [id number] /
[2023-04-04] MEDS ORDERED: Magnesium Replacement Protocol 1 EACH MISC MISCELLANE PRN (16:37)
[2023-04-04] MEDS ORDERED: Potassium Replacement Protocol 1 EACH MISC MISCELLANE PRN (16:37)
--- NOTE | 2023-04-04 16:52 | P.HPIM ---
History of Present Illness H&P Date: 04/04/23 Chief Complaint: Passed out This is a 72-year-old female with past medical history of chronic pain, COPD, CVA/TIA, gastroesophageal reflux disease, osteoarthritis, anxiety, former nicotine dependence and multiple other medical issues presented to the ER with complaints of syncope. Patient stated while sitting down eating dinner she passed out at the table, does not recall specifics and upon awakening she was on the EMS stretcher. Denies chest pain, palpitations. Reports right arm pain. Reports she recently passed out previously, falling on her right arm, followed u p with [facility], wearing splint, and had been scheduled for a CT. Denies nausea vomiting or diarrhea. Reports does not consume much water. Denies alcohol consumption. Denies constipation reports last bowel movement yesterday.On admission hypotensive with systolic blood pressures in the 80s, hypokalemic potassium 3, Hemoglobin 9.2(prior hemoglobin 13.9 in and 2017) troponin negative 1 , EKG reporting sinus rhythm with PVCs, toxicology detected opiates, benzodiazepines and THC. Review of Systems ROS Statement: Those systems with pertinent positive or pertinent negative responses have been documented in the HPI. ROS Other: All systems not noted in ROS Statement are negative. Past Medical History Past Medical History: COPD, CVA/TIA, GERD/Reflux, Osteoarthritis (OA) Additional Past Medical History / Comment(s): "MINI STROKES", BLADDER LEAKAGE, CHRONIC NECK PAIN , History of Any Multi-Drug Resistant Organisms: None Reported Past Surgical History: Appendectomy, Cholecystectomy Additional Past Surgical History / Comment(s): DENTAL SURGERY ,EXCISION GANGLION CYST -RIGHT HAND Past Anesthesia/Blood Transfusion Reactions: No Reported Reaction Past Psychological History: Anxiety Smoking Status: Former smoker Past Alcohol Use History: Rare Additional Past Alcohol Use History / Comment(s): STARTED SMOKING AT AGE 14 QUIT APRIL 2017 SMOKED 1/2PPD Past Drug Use History: None Reported - Past Family History Mother Family Medical History: Cancer Medications and Allergies Home Medications Medication Instructions Recorded Confirmed Type Acetaminophen [Tylenol Extra 1,000 mg PO QID PRN 06/10/19 04/03/23 History Strength] HYDROcodone/APAP 10-325MG [[place] 1 tab PO TID PRN 04/03/23 04/03/23 History 10-325] Naloxone HCl [Narcan] 4 mg NASAL DIRECTED PRN 04/03/23 04/03/23 History Omeprazole [PriLOSEC] 20 mg PO DAILY 04/03/23 04/03/23 History tiZANidine [Zanaflex] 4 mg PO DAILY 04/03/23 04/03/23 History Allergies Allergy/AdvReac Type Severity Reaction Status Date / Time codeine Allergy Rash/Hives Verified 04/03/23 19:30 Physical Exam Vitals: Vital Signs Temp Pulse Pulse Resp BP BP Pulse Ox 04/04/23 14:00 16 04/04/23 12:48 91 16 147/76 98 04/04/23 10:15 98.0 F 90 18 145/82 96 04/04/23 08:15 96 18 147/84 94 L 04/04/23 05:48 88 18 167/92 96 04/03/23 22:12 87 18 115/70 96 04/03/23 21:04 89 110/67 94 L 04/03/23 19:33 85 18 80/54 96 04/03/23 19:31 18 04/03/23 18:16 96 18 94/51 97 04/03/23 17:57 97.7 F 62 18 83/33 95 Intake and Output 04/04/23 04/04/23 04/04/23 06:59 14:59 22:59 Output Total 700 Balance -700 Output: Urine 700 Other: # Bowel Movements 1 Weight 58.513 kg PHYSICAL EXAM: VITAL SIGNS: [As above] GENERAL: Lying on stretcher, in no acute distress HEENT: Conjunctivae normal. eyes normal. NECK: Supple, No JVD. No thyroid enlargement. No LNs CARDIOVASCULAR: S1, S2 regular. Systolic murmur RESPIRATION: Breath sounds diminished in the bases. No rhonchi or crackles. No bronchial breathing. ABDOMEN: Soft, nondistended, nontender . No guarding. no masses palpable. No ascites, No hepatosplenomegaly.Bowel sounds heard. LEGS: No edema. no swelling PSYCHIATRY: Alert and oriented X3, mood and affect normal. NERVOUS SYSTEM: Cranial N 2-12 grossly normal. Moves all 4 limbs. No focal deficits. Strength and sensation grossly intact. Skin: Warm and dry, no rash Results CBC & Chem 7: 04/03/23 18:42 04/03/23 18:42 Labs: Abnormal Lab Results - Last 24 Hours (Table) 04/03/23 04/03/23 04/04/23 Range/Units 18:42 18:42 05:49 RBC 3.00 L (3.80-5.40) m/uL Hgb 9.2 L (11.4-16.0) gm/dL Hct 28.9 L (34.0-46.0) % Potassium 3.0 L (3.5-5.1) mmol/L Chloride 109 H (98-107) mmol/L Carbon Dioxide 21 L (22-30) mmol/L Glucose 113 H (74-99) mg/dL Calcium 8.2 L (8.4-10.2) mg/dL Total Protein 5.5 L (6.3-8.2) g/dL Albumin 2.7 L (3.5-5.0) g/dL Urine Opiates Screen Detected H (NotDetected) U Benzodiazepines Scrn Detected H (NotDetected) U Marijuana (THC) Screen Detected H (NotDetected) Assessment and Plan Assessment: Syncope, recurrent, etiology unclear; toxicology detected opiates, be nzodiazepines and THC Hypotension, as we due to dehydration Hypokalemia Recent fall, possible right arm fracture, secondary to syncope, was scheduled with OA for CT-consulted COPD Prior nicotine dependence History of CVA, TIA Gastroesophageal reflux disease Osteoarthritis Anxiety Plan: Continue on current medication regime ,monitoring and symptomatic treatment. Electrolyte supplementation ordered with repeat potassium level this afternoon .Cardiology and orthopedics consulted. 2-D echo pending. At discharge consider heart monitor. The impression and plan of care has been dictated as directed. : I performed a history and examination of this patient, discussed the same with the dictator. I agree with the dictator's note ,documented as a scribe. Any additional findings or plans will be noted.
[2023-04-04] MEDS: PANTOPRAZOLE 40 MG/10 ML VIAL IVP SCH (17:18)
--- NOTE | 2023-04-04 18:04 | CT ---
EXAMINATION TYPE: CT humerus RT wo/w con, XR humerus RT CT DLP: 909.4 mGycm, Automated exposure control for dose reduction was used. DATE OF EXAM: 04/04/2023 5:45 PM COMPARISON: Extremity radiograph same day. CLINICAL INDICATION:Female, 72 years old with history of concern for pathologic fracture, pathologica l fx TECHNIQUE: Axial images were obtained of the right humerus . Additional coronal and sagittal reforma tted images and soft tissue and bone window were obtained for review. 3-D reconstruction was created on a separate workstation. Contrast used:100 mL of Isovue 300 without and with IV Contrast, Oral contrast used: None FINDINGS: Pathologic fracture through the right humerus. There is some ill-defined sclerotic bone within the mo re lucent area within the humerus. This lesion extends approximately 16.5 cm in length extending from series 204 image 82 to image 22. There is soft tissue within this lesion which displaces the normal fatty bone marrow. There is cortical defect near the medial aspect of the surgical neck. There is com minuted appearance of the proximal one third of the right humerus diaphysis. Multiple fragments are d isplaced. Underlying soft tissue mass measuring up to 5.0 x 2.7 x 8.1 cm extends outside the humerus. There are satellite lesion more proximally and within the surrounding musculature series 302 image 29 and imag e 40. Multiple right axillary lymph nodes which are prominent have a rounded morphology measuring up to 10 mm in short axis. Radiographic findings are confirmed on CT. IMPRESSION: Proximal right humerus pathologic fracture with comminution and displacement of the fragments. Additi onal cortical buckling of the right humerus surgical neck also suspicious for fracture. Some ill-defi juan carlos sclerosis is seen within the soft tissue lesion that extends up to 16.5 cm. Soft tissue component extends outside the osseous structures and there are suspected intramuscular deposits and lymphadeno quentin suspicious for metastatic disease.
[2023-04-05] MEDS: HYDROcodone/APAP 5-325MG 1 EACH TAB PO PRN ×2 (03:13→09:16)
[2023-04-05] MEDS: SODIUM CHLORIDE 0.9% 1,000 ML IV SCH ×2 (03:17→16:41)
[2023-04-05] MEDS: PANTOPRAZOLE 40 MG/10 ML VIAL IVP SCH (09:17)
[2023-04-05 09:28] LABS: Basophils % (A) 0 %; Eosinophils # (A) 0.1 k/uL (0-0.7); Eosinophils % (A) 1 %; HCT 39.1 % (34.0-46.0); Hypochromasia Slight; Lymphocytes # (A) 1.3 k/uL (1.0-4.8); Lymphocytes % (A) 10 %; MCH 30.7 pg (25.0-35.0); MCHC 31.5 g/dL (31.0-37.0); MCV 97.2 fL (80.0-100.0); Mean Platelet Volume 7.7; Monocytes # (A) 0.8 k/uL (0-1.0); Monocytes % (A) 6 %; Neutrophils # (A) 10.4 k/uL (1.3-7.7); Neutrophils % (A) 82 %; Platelet Count 452 k/uL (150-450); RBC 4.03 m/uL (3.80-5.40); RDW 12.7 % (11.5-15.5); WBC 12.8 k/uL (3.8-10.6)
[2023-04-05 09:34] LABS: African American GFR (CKD) >90 (>60 ml/min/1.73 sqM); Anion Gap 12 mmol/L; Blood Urea Nitrogen 7 mg/dL (7-17); Calcium 9.1 mg/dL (8.4-10.2); Carbon Dioxide 25 mmol/L (22-30); Chloride 101 mmol/L (98-107); Glucose 97 mg/dL (74-99); Magnesium 1.5 mg/dL (1.6-2.3); Non-African American GFR(CKD) >90 (>60 ml/min/1.73 sqM); Potassium 4.3 mmol/L (3.5-5.1); Sodium 138 mmol/L (137-145)
[2023-04-05 09:35] LABS: HGB 12.3 gm/dL (11.4-16.0)
[2023-04-05] MEDS: amLODIPine 5 MG TAB PO SCH (13:07)
[2023-04-05] MEDS: ONDANSETRON 4 MG/2 ML VIAL IVP PRN (13:07)
[2023-04-05] MEDS ORDERED: MORPHINE SULFATE 4 MG/ML SYRINGE IVP STA (13:44)
[2023-04-05] MEDS: IOPAMIDOL CONTRAST (ORAL USE) VIAL PO PRN ×2 (15:29→16:43)
--- NOTE | 2023-04-05 17:19 | P.CNOR ---
History of Present Illness - [facility] Consult date: 04/05/23 History of present illness: The patient is a very pleasant 72-year-old female with a medical history significant for cigarette smoking who is well-known to my practice. I had previously seen the patient in February when she was referred with a humerus fracture. The humerus fracture appeared concerning for a pathologic fracture and I recommended a sling and CAT scan. The patient was in the process of getting this scheduled and obtained. According to the patient's son yesterday she had altered mental status and was brought to the emergency department where she was admitted to internal medicine. Today at the time of my evaluation she is down getting a computed tomography scan for the workup of her presumed metastatic lung cancer. The patient's son says she continues to have right arm pain. Past Medical History Past Medical History: COPD, CVA/TIA, GERD/Reflux, Osteoarthritis (OA) Additional Past Medical History / Comment(s): "MINI STROKES", BLADDER LEAKAGE, CHRONIC NECK PAIN , History of Any Multi-Drug Resistant Organisms: None Reported Past Surgical History: Appendectomy, Cholecystectomy Additional Past Surgical History / Comment(s): DENTAL SURGERY ,EXCISION GANGLION CYST -RIGHT HAND Past Anesthesia/Blood Transfusion Reactions: No Reported Reaction Past Psychological History: Anxiety Smoking Status: Former smoker Past Alcohol Use History: Rare Additional Past Alcohol Use History / Comment(s): STARTED SMOKING AT AGE 14 QUIT APRIL 2017 SMOKED 1/2PPD Past Drug Use History: None Reported - Past Family History Mother Family Medical History: Cancer Medications and Allergies Home Medications Medication Instructions Recorded Confirmed Type Acetaminophen [Tylenol Extra 1,000 mg PO QID PRN 06/10/19 04/03/23 History Strength] HYDROcodone/APAP 10-325MG [[place] 1 tab PO TID PRN 04/03/23 04/03/23 History 10-325] Naloxone HCl [Narcan] 4 mg NASAL DIRECTED PRN 04/03/23 04/03/23 History Omeprazole [PriLOSEC] 20 mg PO DAILY 04/03/23 04/03/23 History tiZANidine [Zanaflex] 4 mg PO DAILY 04/03/23 04/03/23 History Allergies Allergy/AdvReac Type Severity Reaction Status Date / Time codeine Allergy Rash/Hives Verified 04/03/23 19:30 Physical Examination Physical exam was not completed due to the patient being down in radiology for a computed tomography scan. Results She is the patient's right humerus and computed tomography scan of the right humerus show a pathologic fracture with extensive bony destructive changes and a large soft tissue mass. Was also noted incidentally on the radiologist's report that there are other multifocal areas of presumed metastatic cancer. - Labs Labs: Abnormal Lab Results - Last 24 Hours (Table) 04/05/23 04/05/23 Range/Units 08:59 08:59 WBC 12.8 H (3.8-10.6) k/uL Plt Count 452 H (150-450) k/uL Neutrophils # 10.4 H (1.3-7.7) k/uL Creatinine 0.50 L (0.52-1.04) mg/dL Magnesium 1.5 L (1.6-2.3) mg/dL Microbiology - Last 24 Hours (Table) 04/03/23 19:15 Blood Culture - Preliminary Blood 04/03/23 19:30 Blood Culture - Preliminary Blood H & H 04/03/23 04/05/23 Range/Units 18:42 08:59 Hgb 9.2 L 12.3 D (11.4-16.0) gm/dL Hct 28.9 L 39.1 (34.0-46.0) % Coagulation 04/03/23 Range/Units 18:42 INR 1.1 (<1.2) Result Diagrams: 04/05/23 08:59 04/05/23 08:59 Assessment and Plan Assessment: Right pathologic humerus fracture, likely metastatic cancer History of cigarette smoking Plan: I had a long discussion with the patient's son this afternoon. Treatment will likely depend on how sick she is and what her overall prognosis is. If the patient has a terminal diagnosis I would recommend a sling and comfort care. If the patient will have treatment for her cancer and overall better prognosis I would recommend referral as an outpatient to an orthopedic oncologist as her fracture and extensive cancer in and around the humerus is outside of my scope of practice. I have no plans for surgical treatment or further workup of the humerus fracture at this time. She should remain in a sling and be nonweightbearing on the right arm. The primary team can determine her prognosis and if the family would like to pursue operative fixation I would recommend the primary service arrange follow-up with an orthopedic oncologist at [facility] or [place] following discharge. Time with Patient: Greater than 30
--- NOTE | 2023-04-05 17:50 | P.CONS ---
History of Present Illness - Reason for Consult Consult date: 04/05/23 concern for metastatic disease Requesting physician: Fidel Viveros - Chief Complaint RUE pain, syncope - History of Present Illness Patient is a 72-year-old female with a significant history of history of chronic pain, COPD, CVA/TIA, and nicotine dependence. She reports a 30-40 yr pack hx, as smoking has varied over the years. We were consulted for concern of suspicious soft tissue mass and pathological fracture of right humerus. Patient's family states that the patient was seen by orthopedics after having right upper extremity pain, with unknown injury to arm. She was noted to have a fracture of the right humerus and soft tissue lesion. Orthopedics was treating her acutely with plans to referral to oncology. Family states patient was at the kitchen table when she became disoriented and had a syncopal episode. At which time she presented to the ER for further evaluation. Family reports over the last couple months patient's had decreased appetite and increasing weakness. states patient has lost approximately 30 pounds over the last 2 months. Patient had mammogram approximately 6 months ago which was normal per patient's . Unknown last colonoscopy. Son states the patient has chronic neck pain and has stimulator in place. He is concerned that she is taking too much of her pain medications and is running out early which may have been contributing to her confusion and increased weakness. Upon presentation to the ER right humerus x- ray and CT revealed pathological fracture with comminution and displacement of the fragments. Additional cortical buckling of the right humerus surgical neck also suspicious for fracture. Some ill-defined sclerosis is seen within the soft tissue lesion that extends up to 16.5 cm. Soft tissue component measuring 5x2.7x8.1 cm, extending outside the osseous structures and there are suspected intramuscular deposits and lymphadenopathy suspicious for metastatic disease. Hemoglobin 12.3, WBC 12.8, platelets 452,000. ALP 69 Review of Systems 10 point ROS is negative except as stated in HPI Past Medical History Past Medical History: COPD, CVA/TIA, GERD/Reflux, Osteoarthritis (OA) Additional Past Medical History / Comment(s): "MINI STROKES", BLADDER LEAKAGE, CHRONIC NECK PAIN , History of Any Multi-Drug Resistant Organisms: None Reported Past Surgical History: Appendectomy, Cholecystectomy Additional Past Surgical History / Comment(s): DENTAL SURGERY ,EXCISION GANGLION CYST -RIGHT HAND Past Anesthesia/Blood Transfusion Reactions: No Reported Reaction Past Psychological History: Anxiety Smoking Status: Former smoker Past Alcohol Use History: Rare Additional Past Alcohol Use History / Comment(s): STARTED SMOKING AT AGE 14 QUIT APRIL 2017 SMOKED 1/2PPD Past Drug Use History: None Reported - Past Family History Mother Family Medical History: Cancer Medications and Allergies Home Medications Medication Instructions Recorded Confirmed Type Acetaminophen [Tylenol Extra 1,000 mg PO QID PRN 06/10/19 04/03/23 History Strength] HYDROcodone/APAP 10-325MG [[place] 1 tab PO TID PRN 04/03/23 04/03/23 History 10-325] Naloxone HCl [Narcan] 4 mg NASAL DIRECTED PRN 04/03/23 04/03/23 History Omeprazole [PriLOSEC] 20 mg PO DAILY 04/03/23 04/03/23 History tiZANidine [Zanaflex] 4 mg PO DAILY 04/03/23 04/03/23 History Allergies Allergy/AdvReac Type Severity Reaction Status Date / Time codeine Allergy Rash/Hives Verified 04/03/23 19:30 Physical Exam Vitals: Vital Signs Temp Pulse Resp BP Pulse Ox 04/05/23 15:36 97 F L 103 H 22 126/67 91 L 04/05/23 12:00 99.5 F 103 H 20 139/79 95 04/05/23 08:06 97.6 F 87 18 171/97 96 04/04/23 23:58 98 F 83 16 160/91 94 L 04/04/23 21:00 98 F 92 16 169/98 96 Intake and Output 04/05/23 04/05/23 04/05/23 06:59 14:59 22:59 Intake Total 0 0 Output Total 1200 400 Balance -1200 -400 0 Intake: Oral 0 0 Output: Urine 1200 400 Other: Voiding Method External Catheter # Voids 2 - Constitutional General appearance: average body habitus, no acute distress - EENT Eyes: anicteric sclerae, EOMI ENT: hearing grossly normal - Neck unable to palpate/examine right axillary lymph nodes and right upper extremity due to severe pain - Respiratory breathing unlabored Respiratory: bilateral: CTA - Cardiovascular Rhythm: regular Heart sounds: normal: S1, S2 Abnormal Heart Sounds: no systolic murmur, no diastolic murmur, no rub, no S3 Gallop, no S4 Gallop, no click, no other leg Peripheral Edema: bilateral: None - Gastrointestinal General gastrointestinal: soft, no tenderness - Integumentary Integumentary: normal - Neurologic grossly intact - Musculoskeletal Musculoskeletal: generalized weakness - Psychiatric Psychiatric: A&O x's 3 Results CBC & Chem 7: 04/05/23 08:59 04/05/23 08:59 Labs: Abnormal Lab Results - Last 24 Hours (Table) 04/05/23 04/05/23 Range/Units 08:59 08:59 WBC 12.8 H (3.8-10.6) k/uL Plt Count 452 H (150-450) k/uL Neutrophils # 10.4 H (1.3-7.7) k/uL Creatinine 0.50 L (0.52-1.04) mg/dL Magnesium 1.5 L (1.6-2.3) mg/dL Microbiology - Last 24 Hours (Table) 04/03/23 19:15 Blood Culture - Preliminary Blood 04/03/23 19:30 Blood Culture - Preliminary Blood Comments: CT and x-ray of right humerus reviewed Assessment and Plan (1) Humerus lesion, right Current Visit: Yes Status: Acute Priority: High Code(s): M89.9 - DISORDER OF BONE, UNSPECIFIED SNOMED Code(s): [id number] Plan: Humerus mass/pathological fracture: -Right humerus x-ray and CT revealed pathological fracture with comminution and displacement of the fragments. Additional cortical buckling of the right humerus surgical neck also suspicious for fracture. Some ill-defined sclerosis is seen within the soft tissue lesion that extends up to 16.5 cm. Soft tissue component measuring 5x2.7x8.1 cm, extending outside the osseous structures and there are suspected intramuscular deposits and lymphadenopathy suspicious for metastatic disease -Will order CT CAP and NM bone scan for further staging. Will await scan results, if RUE mass is primary site, pt will need evaluation by ortho oncology. If metastatic will place IR consult to obtain biopsy -Rad/onc consult placed, spoke with Dr. Garcia regarding case. -Pain meds and anti-emetics adjusted, will revaluate pain control/nausea and adjust as needed -Pt and family updated on plan of care and agreeable to proceed with further testing attests: I have performed H&P and developed impression and plan of care for patient, discussed with dictator. I agree with dictated note, documented as a scribe
--- NOTE | 2023-04-05 18:33 | CT ---
EXAMINATION TYPE: CT ChestAbdPelvis w con CT DLP: 1699 mGycm, Automated exposure control for dose reduction was used. DATE OF EXAM: 04/05/2023 5:22 PM COMPARISON: Right humerus CT 04/04/2023. CLINICAL INDICATION:Female, 72 years old with history of soft tissue mass RUE, r/o mets, R/O mets Technique: Multiple axial images of the chest, abdomen, and pelvis were obtained. Two-dimensional cor onal and sagittal reconstructions were obtained. Contrast used:100cc mL of Isovue 300 with IV Contrast, Oral contrast used: with Oral Contrast Findings: CHEST: LUNGS/ PLEURA: Scattered pulmonary nodules. Examples include: * Left lower lobe 10 mm series 3 image 198. * Right upper lobe 8 mm image 118.r * Right middle lobe 5 mm image 195. * Right lower lobe 6 mm image 226. * Left upper lobe 6 mm image 137 Right upper lobe azygous fissure. No focal consolidation, pneumothorax or pleural effusion. AIRWAY: Patent and unremarkable. HEART: The heart is mildly enlarged for size. MEDIASTINUM: No gross evidence of adenopathy. VASCULATURE: No aortic aneurysm. MUSCULOSKELETAL: Pathologic fracture through the right humerus. There is some ill-defined sclerotic b one within the more lucent area within the humerus. This lesion extends approximately 16.5 cm in cristobal th. There is soft tissue within this lesion which displaces the normal fatty bone marrow. There is co rtical defect near the medial aspect of the surgical neck. There is comminuted appearance of the prox imal one third of the right humerus diaphysis. Multiple fragments are displaced. Underlying soft tissue mass measuring up to 5.0 x 2.7 x 8.1 cm extends outside the humerus. There are satellite lesions more proximally and within the surrounding musculature including 1.6 cm lesion ser ies 3 image 87 and 1.4 cm lesion series 3 image 83. SOFT TISSUES/LYMPH NODES: Multiple right axillary lymph nodes which are prominent have a rounded morp hology measuring up to 10 mm in short axis. LOWER NECK: No significant findings. ABDOMEN: ABDOMEN LIVER: Unremarkable GALLBLADDER AND BILE DUCTS: Unremarkable. PANCREAS: Unremarkable. SPLEEN: Unremarkable. ADRENAL GLANDS: Unremarkable. KIDNEYS AND URETERS: No evidence of hydronephrosis or renal calculus. The ureters are unremarkable. PELVIS BLADDER: Unremarkable REPRODUCTIVE: Unremarkable. ABDOMEN & PELVIS STOMACH AND BOWEL: No evidence of bowel obstruction. Dense barium in its evaluation stomach and in th e upper abdomen. Scattered colonic diverticula. PERITONEUM: No evidence of pneumoperitoneum or free fluid. VASCULATURE: No evidence of aortic aneurysm. 11 MUSCULOSKELETAL: No acute osseous abnormalities LYMPH NODES: No gross evidence for lymphadenopathy. SOFT TISSUE/ABDOMINAL WALL: Electronic device in the left buttock/lower back with lead terminating in the thecal sac. IMPRESSION: Right proximal humerus destructive mass with superimposed pathologic fracture and extension outside t he bone itself into the adjacent soft tissues with suspected at least 2 small satellite lesions in th e surrounding muscles as described on prior CT. Scattered pulmonary nodules and enlarged right axilla ry lymph nodes are suspicious for metastatic disease. No evidence for metastatic disease within the a bdomen or pelvis. No greater than 1.0 cm in short axis lymph nodes identified. Consider PET/CT.
[2023-04-05] MEDS: HYDROcodone/APAP 7.5-325MG 1 EACH TAB PO PRN (19:37)
--- NOTE | 2023-04-05 20:44 | P.CONS ---
History of Present Illness - Reason for Consult Consult date: 04/05/23 right humerus pathologic fracture, pain Requesting physician: Dalton Jung - Chief Complaint right arm pain, syncope - History of Present Illness The patient is a 72-year-old female who is recently diagnosed with a large pathologic fracture of the right humerus with extensive soft tissue involvement. Her workup has not revealed an obvious primary cancer outside of the humerus. According to the patient and her boyfriend who is present with her today, she has been struggling with right-sided arm pain for over 2 months. The [facility] as an [facility]. She was undergoing workup for this humeral fracture, when the patient had an episode of unresponsiveness on April 03. She was taken to the ER at this time. It was felt the patient's episode of unresponsiveness during dinner was possibly secondary to her increased pain medication use recently. In the ER, the patient underwent a CT of the humerus on 04/04/2023. This revealed a 16.5 cm lesion involving the right humerus with significant ulnar displacement and pathologic fracture. There was a 5 x 8 cm soft tissue component outside of the humerus, with prominent, rounded right axillary lymph nodes measuring up to 1 cm. The patient subsequently underwent a computed tomography scan of the chest, abdomen and pelvis on April 05. This revealed approximately 5 pulmonary nodules measuring up to 1 cm in size. Redemonstrated right humeral fracture with axillary adenopathy. At this time, the patient reports she continues to have significant pain in the right upper extremity. She states she is unable to move the arm. She is able to move her fingers, but states she does not have adequate strength to rejoiner. She does have a history of chronic back pain, and states this is largely unchanged from her baseline. Review of Systems Constitutional: Reports chronic pain, Denies chills, Denies fever Ears, nose, mouth and throat: Reports headache Cardiovascular: Denies chest pain Respiratory: Reports cough, Reports dyspnea Gastrointestinal: Denies abdominal pain Musculoskeletal: Reports as per HPI Integumentary: Denies rash Neurological: Reports weakness (generalized), Denies paresthesias, Denies seizures Past Medical History Past Medical History: COPD, CVA/TIA, GERD/Reflux, Osteoarthritis (OA) Additional Past Medical History / Comment(s): "MINI STROKES", BLADDER LEAKAGE, CHRONIC NECK PAIN , History of Any Multi-Drug Resistant Organisms: None Reported Past Surgical History: Appendectomy, Cholecystectomy Additional Past Surgical History / Comment(s): DENTAL SURGERY ,EXCISION GANGLION CYST -RIGHT HAND Past Anesthesia/Blood Transfusion Reactions: No Reported Reaction Past Psychological History: Anxiety Smoking Status: Former smoker Past Alcohol Use History: Rare Additional Past Alcohol Use History / Comment(s): STARTED SMOKING AT AGE 14 QUIT APRIL 2017 SMOKED 1/2PPD Past Drug Use History: None Reported - Past Family History Mother Family Medical History: Cancer Medications and Allergies Home Medications Medication Instructions Recorded Confirmed Type Acetaminophen [Tylenol Extra 1,000 mg PO QID PRN 06/10/19 04/03/23 History Strength] HYDROcodone/APAP 10-325MG [[place] 1 tab PO TID PRN 04/03/23 04/03/23 History 10-325] Naloxone HCl [Narcan] 4 mg NASAL DIRECTED PRN 04/03/23 04/03/23 History Omeprazole [PriLOSEC] 20 mg PO DAILY 04/03/23 04/03/23 History tiZANidine [Zanaflex] 4 mg PO DAILY 04/03/23 04/03/23 History Allergies Allergy/AdvReac Type Severity Reaction Status Date / Time codeine Allergy Rash/Hives Verified 04/03/23 19:30 Physical Exam Vitals: Vital Signs Temp Pulse Resp BP Pulse Ox 04/05/23 19:35 98.2 F 100 18 128/67 93 L 04/05/23 15:36 97 F L 103 H 22 126/67 91 L 04/05/23 12:00 99.5 F 103 H 20 139/79 95 04/05/23 08:06 97.6 F 87 18 171/97 96 04/04/23 23:58 98 F 83 16 160/91 94 L 04/04/23 21:00 98 F 92 16 169/98 96 Intake and Output 04/05/23 04/05/23 04/05/23 06:59 14:59 22:59 Intake Total 0 0 Output Total 1200 400 Balance -1200 -400 0 Intake: Oral 0 0 Output: Urine 1200 400 Other: Voiding Method External Catheter # Voids 2 - Constitutional General appearance: no acute distress - EENT Eyes: EOMI, PERRLA ENT: hearing grossly normal - Neck Neck: no lymphadenopathy - Respiratory Respiratory: bilateral: CTA - Cardiovascular Rhythm: regular - Gastrointestinal General gastrointestinal: no distended, no tenderness - Integumentary Integumentary: no rash - Neurologic Neurologic: CNII-XII intact - Musculoskeletal Musculoskeletal: right sided weakness (Right upper extremity - unable to move arm; very sensitive to even light touch. Patient able to move fingers with 3/5 rejoiner strength. Vascular intact.) - Psychiatric Psychiatric: A&O x's 3 Results CBC & Chem 7: 04/05/23 08:59 04/05/23 08:59 Labs: Abnormal Lab Results - Last 24 Hours (Table) 04/05/23 04/05/23 Range/Units 08:59 08:59 WBC 12.8 H (3.8-10.6) k/uL Plt Count 452 H (150-450) k/uL Neutrophils # 10.4 H (1.3-7.7) k/uL Creatinine 0.50 L (0.52-1.04) mg/dL Magnesium 1.5 L (1.6-2.3) mg/dL Microbiology - Last 24 Hours (Table) 04/03/23 19:15 Blood Culture - Preliminary Blood 04/03/23 19:30 Blood Culture - Preliminary Blood CT scan - abdomen: report reviewed, image reviewed CT scan - chest: report reviewed, image reviewed CT scan - pelvis: report reviewed, image reviewed Assessment and Plan Assessment: The patient is a 72-year-old female who is recently diagnosed with a large pathologic fracture of the right humerus with extensive soft tissue involvement. Her workup has not revealed an obvious primary cancer outside of the humerus. Plan: 1. Right humerus pathologic fracture: As noted on her imaging, the patient has extremely large soft tissue lesion resulting in pathologic fracture of the right humerus. Her computed tomography scan of the chest, abdomen and pelvis did not reveal a clear primary site. Therefore, it is possible this lesion is the primary site. If so, could represent a locally destructive soft tissue sarcoma or less likely other malignancy such as plasmacytoma, lymphoma ect. She has a bone-scan pending as well. She likely has evidence of early metastatic disease with several pulmonary nodules noted. Per orthopedics, the patient would need to be evaluated by orthopedic oncology if there is any consideration of surgical resection. At this time, it is reasonable to obtain core biopsy of the tumor to help inform next steps in management. I did discuss with the patient that a palliative course of radiotherapy could be considered, but considering this is a significantly displaced fracture of the patient would still not have any meaningful use of the arm. Time: I spent 45 minutes with this patient, of which greater than 50% of that time was spent counseling, coordinating care, and reviewing the risks, benefits, and all potential complications of radiation. Time with Patient: Greater than 30
--- NOTE | 2023-04-05 22:39 | PN ---
PROGRESS NOTE SUBJECTIVE: A 72-year-old patient, who was found unresponsive at home primarily due to consuming excess amounts of pain pills. An echocardiogram showed normal LV function. The patient did not have any documented cardiac arrhythmia. Urine drug screen was positive for opiates, benzodiazepines, and marijuana. This morning, her predominant symptom is discomfort involving the right arm. OBJECTIVE: VITAL SIGNS: Blood pressure is elevated. NECK: There is no jugular venous distention. CHEST: Reveals good air entry bilaterally. HEART: Reveals first and second heart sounds. No gallop. EXTREMITIES: Did not reveal any edema. Peripheral pulses are felt. ASSESSMENT: 1. Syncope, probably secondary to excess consumption of the pain pills. 2. History of fall. 3. Uncontrolled hypertension. PLAN: I will start the patient on amlodipine 10 mg daily for blood pressure control. MMODL / IJN: [id number] /
[2023-04-06] MEDS ORDERED: ACETAMINOPHEN TAB 325 MG TAB PO PRN (00:42)
[2023-04-06] MEDS: ONDANSETRON 4 MG/2 ML VIAL IVP PRN ×2 (03:07→18:43)
[2023-04-06] MEDS: HYDROcodone/APAP 7.5-325MG 1 EACH TAB PO PRN ×5 (03:07→20:31)
[2023-04-06] MEDS: MAGNESIUM SULFATE-D5W PMX 1 GM in DEXTROSE/WATER 1 100ML.BAG IVPB SCH ×2 (03:07→05:19)
[2023-04-06] MEDS: PANTOPRAZOLE 40 MG TABLET PO SCH (05:20)
[2023-04-06] MEDS: SODIUM CHLORIDE 0.9% 1,000 ML IV SCH ×3 (07:44→18:43)
[2023-04-06] MEDS: amLODIPine 5 MG TAB PO SCH (07:49)
--- NOTE | 2023-04-06 08:50 | P.PN ---
Subjective The patient was seen at bedside this morning. She is complaining of right arm pain. Objective - Vital Signs Vital signs: Vital Signs Temp 98.7 F 04/06/23 08:00 Pulse 101 H 04/06/23 08:00 Resp 19 04/06/23 08:00 BP 131/67 04/06/23 08:00 Pulse Ox 92 L 04/06/23 08:00 FiO2 Intake & Output 04/05/23 04/06/23 04/06/23 18:59 06:59 18:59 Intake Total 0 Output Total 400 850 Balance -400 -850 Intake: Oral 0 Output: Urine 400 850 Other: Voiding Method External Catheter # Voids 2 - Exam The patient is alert and oriented. She is sitting up in bed and is easily able to answer questions. On exam of the right arm there is diffuse swelling and tenderness over the mid to upper humerus. Motor and sensory function are intact distally in the right hand particularly with regards the radial nerve. - Labs CBC & Chem 7: 04/05/23 08:59 04/05/23 08:59 Labs: Abnormal Lab Results - Last 24 Hours (Table) 04/05/23 04/05/23 Range/Units 08:59 08:59 WBC 12.8 H (3.8-10.6) k/uL Plt Count 452 H (150-450) k/uL Neutrophils # 10.4 H (1.3-7.7) k/uL Creatinine 0.50 L (0.52-1.04) mg/dL Magnesium 1.5 L (1.6-2.3) mg/dL Microbiology - Last 24 Hours (Table) 04/03/23 19:15 Blood Culture - Preliminary Blood 04/03/23 19:30 Blood Culture - Preliminary Blood Assessment and Plan Assessment: Right pathologic humerus shaft fracture, etiology metastatic cancer versus primary sarcoma versus lymphoma or myeloma Extensive history of cigarette smoking Plan: I met with the patient and her son this morning to discuss treatment. I also reviewed the computed tomography scan of her chest abdomen and pelvis and her note yesterday from oncology. As documented in my note yesterday management of this pathologic fracture is outside of my scope practice. I would recommend on cology and/or the primary service arrange follow-up as an outpatient with an orthopedic oncologist. I have no plans for performing operative fixation or a biopsy as this is again outside my scope of practice. In the interim the patient should remain nonweightbearing in a sling. We will sign off at this time.
--- NOTE | 2023-04-06 14:34 | PN ---
PROGRESS NOTE HISTORY OF PRESENT ILLNESS: A 72-year-old lady who was admitted to hospital with loss of consciousness secondary to excess use of pain medications. Her cardiac workup including the echocardiogram is so far being benign and unremarkable. She has had right arm pain and she has a pathological fracture, thought to be secondary to medications. OBJECTIVE: GENERAL: On exam, she is resting comfortably. VITAL SIGNS: Stable. CHEST: Reveals good air entry bilaterally. HEART: Reveals first and second heart sounds. There is systolic murmur at the left lower sternal border. EXTREMITIES: Exam of extremities did not reveal any edema. ASSESSMENT AND PLAN: 1. Loss of consciousness secondary to excess use of pain medications. 2. Pathological fracture. No further cardiac workup at this time. I am going to see her on an as-needed basis. MMODL / IJN: [id number] /
[2023-04-06] MEDS: HEPARIN SODIUM,PORCINE/PF 5,000 UNIT/0.5 ML SYRINGE SQ SCH (20:31)
--- NOTE | 2023-04-06 23:09 | PN ---
PROGRESS NOTE DATE OF SERVICE: 04/06/2023 SUBJECTIVE: This is a 72-year-old woman, who was admitted with fall and possibly pathologic fracture of the right humerus, also had a CT scan, which showed scattered pulmonary nodules and enlarged right axillary lymph nodes also suspicion of metastatic disease. The patient will be closely monitored at this time. PAST MEDICAL HISTORY: Reviewed. REVIEW OF SYSTEMS: A 14-point review of systems is negative except as mentioned earlier. PHYSICAL EXAMINATION: VITAL SIGNS: Pulse is 101, blood pressure 131/60, respirations 19. HEENT: Conjunctivae normal. NECK: No JVD. CARDIOVASCULAR: S1, S2 muffled. RESPIRATIONS: Breath sounds diminished at the bases. ABDOMEN: Soft. LEGS: No edema. NERVOUS SYSTEM: Nonfocal. LABORATORY DATA: Reviewed. ASSESSMENT: 1. Right arm pathological fracture with severe pain. 2. Multiple pulmonary nodules and right axillary lymphadenopathy. 3. Loss of consciousness, syncope, possibly secondary to pain medications per Cardiology. 4. Hypotension. 5. Hypokalemia. 6. Multiple complex medical issues. RECOMMENDATIONS AND DISCUSSION: Recommend to continue current management and continue symptomatic treatment. Otherwise, at this time I recommend Hematology/Oncology evaluation and as well as possible surgical evaluation also for possible biopsy. Prognosis extremely guarded because of multiple complex medical issues and further recommendations to follow. Radiation Oncology is also following the patient. See orders for further details. Bone scan is pending. MMODL / IJN: [id number] /
[2023-04-07] MEDS: HYDROcodone/APAP 7.5-325MG 1 EACH TAB PO PRN ×6 (01:09→20:41)
[2023-04-07] MEDS: PANTOPRAZOLE 40 MG TABLET PO SCH (05:40)
[2023-04-07] MEDS: tiZANidine 4 MG TAB PO SCH (07:57)
[2023-04-07] MEDS: amLODIPine 5 MG TAB PO SCH (07:57)
[2023-04-07] MEDS: HEPARIN SODIUM,PORCINE/PF 5,000 UNIT/0.5 ML SYRINGE SQ SCH ×2 (07:57→20:41)
[2023-04-07] MEDS: SODIUM CHLORIDE 0.9% 1,000 ML IV SCH (07:58)
[2023-04-07] MEDS ORDERED: PANTOPRAZOLE 40 MG TABLET PO SCH (09:00)
[2023-04-07 09:16] LABS: Basophils # (A) 0.05 X 10*3/uL (0.00-0.10); Basophils % (A) 0.5 %; Eosinophils % (A) 3.3 %; HCT 34.6 % (37.2-46.3); HGB 10.6 g/dL (12.0-15.0); Immature Grans, Automated 0.7 %; Lymphocytes # (A) 1.39 X 10*3/uL (0.90-5.00); Lymphocytes % (A) 15.1 %; MCH 30.7 pg (27.0-32.0); MCHC 30.6 g/dL (32.0-37.0); MCV 100.3 fL (80.0-97.0); Mean Platelet Volume 10.4 fL (9.5-12.2); Monocytes # (A) 1.01 X 10*3/uL (0.20-1.00); NRBC Per 100 WBC 0 /100 WBCS (0.0-0.0); Neutrophils # (A) 6.37 X 10*3/uL (1.80-7.70); Neutrophils % (A) 69.4 %; Platelet Count 407 X 10*3/uL (140-440); RBC 3.45 X 10*6/uL (4.10-5.20); RDW 13.1 % (11.5-14.5); WBC 9.18 X 10*3/uL (4.50-10.00)
--- NOTE | 2023-04-07 10:06 | P.GSCN ---
History of Present Illness Consult date: 04/07/23 Reason for Consult: Right axillary lymphadenopathy History of present illness: 72-year-old female came to the hospital with pathologic fracture right humerus. Patient has significant pain and swelling in that area. We were consulted after CAT scan shows some mildly enlarged and radiographically suspicious lymph nodes in the axilla. No tissue sample has been obtained on this suspected malignancy thus far. Patient says she is not able to move the arm for exam. Orthopedics has evaluated the patient and is recommending tertiary care outpatient referral. Radiation oncology is also seeing this patient. Review of Systems The patient denies any acute changes in vision or hearing, no dysphagia or odynophagia, no chest pain or shortness of breath, no dysuria or hematuria, no headache, no runny nose, no rectal bleeding or melena, no unexplained weight loss Past Medical History Past Medical History: COPD, CVA/TIA, GERD/Reflux, Osteoarthritis (OA) Additional Past Medical History / Comment(s): "MINI STROKES", BLADDER LEAKAGE, CHRONIC NECK PAIN , History of Any Multi-Drug Resistant Organisms: None Reported Past Surgical History: Appendectomy, Cholecystectomy Additional Past Surgical History / Comment(s): DENTAL SURGERY ,EXCISION GANGLION CYST -RIGHT HAND Past Anesthesia/Blood Transfusion Reactions: No Reported Reaction Past Psychological History: Anxiety Smoking Status: Former smoker Past Alcohol Use History: Rare Additional Past Alcohol Use History / Comment(s): STARTED SMOKING AT AGE 14 QUIT APRIL 2017 SMOKED 1/2PPD Past Drug Use History: None Reported - Past Family History Mother Family Medical History: Cancer Medications and Allergies Home Medications Medication Instructions Recorded Confirmed Type Acetaminophen [Tylenol Extra 1,000 mg PO QID PRN 06/10/19 04/03/23 History Strength] HYDROcodone/APAP 10-325MG [[place] 1 tab PO TID PRN 04/03/23 04/03/23 History 10-325] Naloxone HCl [Narcan] 4 mg NASAL DIRECTED PRN 04/03/23 04/03/23 History Omeprazole [PriLOSEC] 20 mg PO DAILY 04/03/23 04/03/23 History tiZANidine [Zanaflex] 4 mg PO DAILY 04/03/23 04/03/23 History Allergies Allergy/AdvReac Type Severity Reaction Status Date / Time codeine Allergy Rash/Hives Verified 04/03/23 19:30 Surgical - Exam Vital Signs Temp Pulse Resp BP Pulse Ox 97.7 F 62 18 83/33 95 04/03/23 17:57 04/03/23 17:57 04/03/23 17:57 04/03/23 17:57 04/03/23 17:57 Physical exam: General: Well-developed, well-nourished HEENT: Normocephalic, sclerae nonicteric Abdomen: Nontender, nondistended Extremities: Swelling right brachial region with significant tenderness, skin overlying it appears normal. Limited exam of the axilla reveals no obvious adenopathy Neuro: Alert and oriented Results - Labs 04/07/23 05:50 04/05/23 08:59 Abnormal Lab Results - Last 24 Hours (Table) 04/07/23 Range/Units 05:50 RBC 3.45 L (4.10-5.20) X 10*6/uL Hgb 10.6 L (12.0-15.0) g/dL Hct 34.6 L (37.2-46.3) % MCV 100.3 H (80.0-97.0) fL MCHC 30.6 L (32.0-37.0) g/dL Immature Gran # 0.06 H (0.00-0.04) X 10*3/uL Monocytes # 1.01 H (0.20-1.00) X 10*3/uL Microbiology - Last 24 Hours (Table) 04/03/23 19:15 Blood Culture - Preliminary Blood 04/03/23 19:30 Blood Culture - Preliminary Blood Assessment and Plan (1) Humerus lesion, right Narrative/Plan: 72-year-old female with pathologic fracture right humeral region. We were consulted for lymph node biopsy. These lymph nodes are quite small. Abduction of the arm for surgical biopsy of the axillary nodes would result in further trauma and pain. Recommend percutaneous core biopsy of this mass for definitive diagnosis. Patient likely will require anesthesia consult and sedation for this procedure. Current Visit: Yes Status: Acute Priority: High Code(s): M89.9 - DISORDER OF BONE, UNSPECIFIED SNOMED Code(s): [id number]
[2023-04-07 10:35] LABS: African American GFR (CKD) 104.1 (60.0-200.0); Anion Gap 11.8 mmol/L (10.00-18.00); BUN/Creat Ratio 19.67 Ratio (12.00-20.00); Blood Urea Nitrogen 11.8 mg/dL (9.0-27.0); Calcium 8.3 mg/dL (8.7-10.3); Carbon Dioxide 23.2 mmol/L (20.0-27.5); Non-African American GFR(CKD) 89.8 (60.0-200.0); Potassium 3.8 mmol/L (3.5-5.5)
--- NOTE | 2023-04-07 12:06 | P.PN ---
Subjective Progress Note Date: 04/07/23 This is a 72-year-old female patient with a known history of chronic obstructive pulmonary disease, CVA/TIA, gastroesophageal reflux disease, anxiety. She had recently fallen and broken her humerus and had been seen orthopedics and she was in a splint and awaiting a computed tomography scan for follow-up. She however apparently passed out while eating dinner on 04/03/2023 was brought in by EMS. It is unclear as the patient possibly was choking on food at the time. Computed tomography scan of the humerus revealed a pathologic fracture with comminution and displacement of the fragments. Additional cortical buckling of the right humerus surgical neck also suspicious for fracture. Some ill-defined sclerosis is seen within the soft tissue lesion that extends up to 16.5 cm. Soft tissue component extends outside the osseous structures and there are suspected intramuscular deposits and lymphadenopathy suspicious for metastatic disease. Computed tomography scan of the chest abdomen and pelvis revealed similar findings of the right humerus along with scattered pulmonary nodules and enlarged right axillary lymph node suspicious for metastatic disease. She is seen today in consultation on the regular medical floor. She is currently resting in bed. She is having continued discomfort in her right upper extremity. She currently denies any worsening shortness of breath, cough or congestion. She is maintaining O2 saturations in the 90s on room air. White count 9.1. Hemoglobin 10.6. Platelets 407. Sodium 140. Potassium 3.8. Bicarb 23. BUN 12. Creatinine 0.6. Urine drug screen was positive for opiates, benzodiazepines and marijuana. She has been initiated on a medication. Heparin for DVT prophylaxis. Normal saline at 60 ML's per hour. Objective - Vital Signs Vital signs: Vital Signs Temp 98.6 F 04/07/23 06:41 Pulse 78 04/07/23 06:41 Resp 18 04/07/23 08:00 BP 108/71 04/07/23 06:41 Pulse Ox 91 L 04/07/23 06:41 FiO2 Intake & Output 04/06/23 04/07/23 04/07/23 18:59 06:59 18:59 Intake Total 100 Output Total 300 200 Balance 100 -300 -200 Intake: Oral 100 Output: Urine 300 200 Other: Voiding Method External Catheter External Catheter External Catheter # Voids 4 - Exam GENERAL EXAM: Alert, frail 72-year-old female, on room air, fairly comfortable in no apparent distress. HEAD: Normocephalic. EYES: Normal reaction of pupils, equal size. NOSE: Clear with pink turbinates. THROAT: No erythema or exudates. NECK: No masses, no JVD. CHEST: No chest wall deformity. LUNGS: Equal air entry with no crackles, wheeze, rhonchi or dullness. Diminished. CVS: S1 and S2 normal with no audible murmur, regular rhythm. ABDOMEN: No hepatosplenomegaly, normal bowel sounds, no guarding or rigidity. SPINE: No scoliosis or deformity SKIN: No rashes CENTRAL NERVOUS SYSTEM: No focal deficits, tone is normal in all 4 extremities. EXTREMITIES: Right upper extremity in a sling. There is no peripheral edema. No clubbing, no cyanosis. Peripheral pulses are intact. - Labs CBC & Chem 7: 04/07/23 05:50 04/07/23 05:50 Labs: Abnormal Lab Results - Last 24 Hours (Table) 04/07/23 04/07/23 Range/Units 05:50 05:50 RBC 3.45 L (4.10-5.20) X 10*6/uL Hgb 10.6 L (12.0-15.0) g/dL Hct 34.6 L (37.2-46.3) % MCV 100.3 H (80.0-97.0) fL MCHC 30.6 L (32.0-37.0) g/dL Immature Gran # 0.06 H (0.00-0.04) X 10*3/uL Monocytes # 1.01 H (0.20-1.00) X 10*3/uL Calcium 8.3 L (8.7-10.3) mg/dL Microbiology - Last 24 Hours (Table) 04/03/23 19:15 Blood Culture - Preliminary Blood 04/03/23 19:30 Blood Culture - Preliminary Blood Assessment and Plan Assessment: Syncopal episode of unclear etiology Pathologic fracture of the right humerus with ill-defined sclerotic bone within the more lucent areas within the humerus. Lesion extends approximately 16.5 cm in length. There is soft tissue within this lesion which displaces the normal fatty bone marrow. Underlying soft tissue mass measuring 5 x 2 x 8 extending outside the humerus. Satellite lesions more proximally with the musculature as well. Multiple right axillary lymph nodes that are prominent as well. Nonspecific pulmonary nodules, could be metastatic, will need outpatient follow- up. The largest of which is 10 mm in size. 50 year smoking history History of chronic obstructive pulmonary disease, currently inactive and stable History of CVA/TIA History of chronic pain syndrome History of anxiety. Gastric esophageal reflux disease Plan: The patient was seen and evaluated Chest x-ray, CT scans, medications and labs reviewed No plans for bronchoscopy or biopsies of the small nonspecific lung lesions Will need biopsy of the right humerus and surgical intervention if the patient and family wish to move forward Followed by orthopedics who recommends transfer to tertiary care center Resume patient's outpatient inhalers including Spiriva and Ventolin HFA as needed We will continue to follow and make further recommendations based on her clinical status I have personally seen and examined the patient, performed the documentation and the assessment and plan as written. Number of minutes spent on the visit: 20.
[2023-04-07] MEDS ORDERED: IPRATROPIUM-ALBUTEROL 3 ML NEB INHALATION PRN (12:07)
--- NOTE | 2023-04-07 13:08 | P.CNPUL ---
History of Present Illness Consult date: 04/07/23 Requesting physician: Fidel Viveros Reason for consult: abnormal CXR/CT Chief complaint: Syncopal episode History of present illness: This is a 72-year-old female patient with a known history of chronic obstructive pulmonary disease, CVA/TIA, gastroesophageal reflux disease, anxiety. She had r ecently fallen and broken her humerus and had been seen orthopedics and she was in a splint and awaiting a computed tomography scan for follow-up. She however apparently passed out while eating dinner on 04/03/2023 was brought in by EMS. It is unclear as the patient possibly was choking on food at the time. Computed tomography scan of the humerus revealed a pathologic fracture with comminution and displacement of the fragments. Additional cortical buckling of the right humerus surgical neck also suspicious for fracture. Some ill-defined sclerosis is seen within the soft tissue lesion that extends up to 16.5 cm. Soft tissue component extends outside the osseous structures and there are suspected intramuscular deposits and lymphadenopathy suspicious for metastatic disease. Computed tomography scan of the chest abdomen and pelvis revealed similar findings of the right humerus along with scattered pulmonary nodules and enlarged right axillary lymph node suspicious for metastatic disease. She is seen today in consultation on the regular medical floor. She is currently resting in bed. She is having continued discomfort in her right upper extremity. She currently denies any worsening shortness of breath, cough or congestion. She is maintaining O2 saturations in the 90s on room air. White count 9.1. Hemoglobin 10.6. Platelets 407. Sodium 140. Potassium 3.8. Bicarb 23. BUN 12. Creatinine 0.6. Urine drug screen was positive for opiates, benzodiazepines and marijuana. She has been initiated on a medication. Heparin for DVT prophylaxis. Normal saline at 60 ML's per hour. Review of Systems REVIEW OF SYSTEMS: CONSTITUTIONAL: Denies any recent significant weight loss or weight gain. EYES: Denies change in vision. EARS, NOSE, MOUTH, THROAT: Denies headaches, denies sore throat. CARDIOVASCULAR: Positive for syncopal episodes. RESPIRATORY: Denies shortness of breath, cough, congestion or hemoptysis. GASTROINTESTINAL: Denies change in appetite, denies abdominal pain GENITOURINARY: Denies hematuria, denies infections. MUSKULOSKELETAL: Positive for right upper extremity pain. INTEGUMENTARY: Denies rash, denies eczema. NEUROLOGICAL: Denies recent memory loss, no recent seizure activity. PSYCHIATRIC: Denies anxiety, denies depression. HEMATOLOGIC/LYMPHATIC: Denies anemia, denies enlarged lymph nodes. Past Medical History Past Medical History: COPD, CVA/TIA, GERD/Reflux, Osteoarthritis (OA) Additional Past Medical History / Comment(s): "MINI STROKES", BLADDER LEAKAGE, CHRONIC NECK PAIN , History of Any Multi-Drug Resistant Organisms: None Reported Past Surgical History: Appendectomy, Cholecystectomy Additional Past Surgical History / Comment(s): DENTAL SURGERY ,EXCISION GANGLION CYST -RIGHT HAND Past Anesthesia/Blood Transfusion Reactions: No Reported Reaction Past Psychological History: Anxiety Smoking Status: Former smoker Past Alcohol Use History: Rare Additional Past Alcohol Use History / Comment(s): STARTED SMOKING AT AGE 14 QUIT APRIL 2017 SMOKED 1/2PPD Past Drug Use History: None Reported - Past Family History Mother Family Medical History: Cancer Medications and Allergies Home Medications Medication Instructions Recorded Confirmed Type Acetaminophen [Tylenol Extra 1,000 mg PO QID PRN 06/10/19 04/03/23 History Strength] HYDROcodone/APAP 10-325MG [[place] 1 tab PO TID PRN 04/03/23 04/03/23 History 10-325] Naloxone HCl [Narcan] 4 mg NASAL DIRECTED PRN 04/03/23 04/03/23 History Omeprazole [PriLOSEC] 20 mg PO DAILY 04/03/23 04/03/23 History tiZANidine [Zanaflex] 4 mg PO DAILY 04/03/23 04/03/23 History Allergies Allergy/AdvReac Type Severity Reaction Status Date / Time codeine Allergy Rash/Hives Verified 04/03/23 19:30 Physical Exam Vitals: Vital Signs Temp Pulse Resp BP Pulse Ox 04/07/23 08:00 18 04/07/23 06:41 98.6 F 78 17 108/71 91 L 04/07/23 00:59 98.9 F 92 18 124/76 93 L 04/06/23 19:17 98.5 F 92 18 106/69 93 L 04/06/23 14:05 98.6 F 100 17 107/69 92 L Intake and Output 04/06/23 04/07/23 04/07/23 22:59 06:59 14:59 Intake Total 200 Output Total 300 200 Balance -300 0 Intake: Oral 200 Output: Urine 300 200 Other: Voiding Method External Catheter External Catheter # Voids 4 GENERAL EXAM: Alert, frail 72-year-old female, on room air, fairly comfortable in no apparent distress. HEAD: Normocephalic. EYES: Normal reaction of pupils, equal size. NOSE: Clear with pink turbinates. THROAT: No erythema or exudates. NECK: No masses, no JVD. CHEST: No chest wall deformity. LUNGS: Equal air entry with no crackles, wheeze, rhonchi or dullness. Diminished. CVS: S1 and S2 normal with no audible murmur, regular rhythm. ABDOMEN: No hepatosplenomegaly, normal bowel sounds, no guarding or rigidity. SPINE: No scoliosis or deformity SKIN: No rashes CENTRAL NERVOUS SYSTEM: No focal deficits, tone is normal in all 4 extremities. EXTREMITIES: Right upper extremity in a sling. There is no peripheral edema. No clubbing, no cyanosis. Peripheral pulses are intact. Results - Laboratory Findings CBC and BMP: 04/07/23 05:50 04/07/23 05:50 PT/INR, D-dimer PT 11.7 sec (9.0-12.0) 04/03/23 18:42 INR 1.1 (<1.2) 04/03/23 18:42 Abnormal lab findings: Abnormal Labs 04/03/23 04/03/23 04/04/23 18:42 18:42 05:49 WBC RBC 3.00 L Hgb 9.2 L Hct 28.9 L MCV MCHC Plt Count Immature Gran # Neutrophils # Monocytes # Potassium 3.0 L Chloride 109 H Carbon Dioxide 21 L Creatinine Glucose 113 H Calcium 8.2 L Magnesium Total Protein 5.5 L Albumin 2.7 L Urine Opiates Screen Detected H U Benzodiazepines Scrn Detected H U Marijuana (THC) Screen Detected H 04/04/23 04/05/23 04/05/23 16:44 08:59 08:59 WBC 12.8 H RBC Hgb Hct MCV MCHC Plt Count 452 H Immature Gran # Neutrophils # 10.4 H Monocytes # Potassium 3.2 L Chloride Carbon Dioxide Creatinine 0.50 L Glucose Calcium Magnesium 1.5 L Total Protein Albumin Urine Opiates Screen U Benzodiazepines Scrn U Marijuana (THC) Screen 04/07/23 04/07/23 05:50 05:50 WBC RBC 3.45 L Hgb 10.6 L Hct 34.6 L MCV 100.3 H MCHC 30.6 L Plt Count Immature Gran # 0.06 H Neutrophils # Monocytes # 1.01 H Potassium Chloride Carbon Dioxide Creatinine Glucose Calcium 8.3 L Magnesium Total Protein Albumin Urine Opiates Screen U Benzodiazepines Scrn U Marijuana (THC) Screen - Diagnostic Findings Chest x-ray: image reviewed CT scan - chest: image reviewed Assessment and Plan Assessment: Syncopal episode of unclear etiology Pathologic fracture of the right humerus with ill-defined sclerotic bone within the more lucent areas within the humerus. Lesion extends approximately 16.5 cm in length. There is soft tissue within this lesion which displaces the normal fatty bone marrow. Underlying soft tissue mass measuring 5 x 2 x 8 extending outside the humerus. Satellite lesions more proximally with the musculature as well. Multiple right axillary lymph nodes that are prominent as well. Nonspecific pulmonary nodules, could be metastatic, will need outpatient follow-up. The largest of which is 10 mm in size. 50 year smoking history History of chronic obstructive pulmonary disease, currently inactive and stable History of CVA/TIA History of chronic pain syndrome History of anxiety. Gastric esophageal reflux disease Plan: The patient was seen and evaluated Chest x-ray, CT scans, medications and labs reviewed No plans for bronchoscopy or biopsies of the small nonspecific lung lesions Will need biopsy of the right humerus and surgical intervention if the patient and family wish to move forward Followed by orthopedics who recommends transfer to tertiary care center Resume patient's outpatient inhalers including Spiriva and Ventolin HFA as needed We will continue to follow and make further recommendations based on her clinical status I have personally seen and examined the patient, performed the documentation and the assessment and plan as written. Number of minutes spent on the visit: 20.
[2023-04-07] MEDS: ONDANSETRON 4 MG/2 ML VIAL IVP PRN (13:17)
--- NOTE | 2023-04-07 13:41 | P.PN ---
Subjective Progress Note Date: 04/07/23 Principal diagnosis: RUE pain, weakness At today's visit patient is resting comfortably in bed eating lunch. Patient reports pain in right upper extremity which is better controlled on current pain regimen. She reports intermittent nausea if she eats too much. No other repor brittany complaints at this time. Objective - Vital Signs Vital signs: Vital Signs Temp 98.6 F 04/07/23 06:41 Pulse 78 04/07/23 06:41 Resp 18 04/07/23 08:00 BP 108/71 04/07/23 06:41 Pulse Ox 91 L 04/07/23 06:41 FiO2 Intake & Output 04/06/23 04/07/23 04/07/23 18:59 06:59 18:59 Intake Total 100 200 Output Total 300 200 Balance 100 -300 0 Intake: Oral 100 200 Output: Urine 300 200 Other: Voiding Method External Catheter External Catheter External Catheter # Voids 4 - Constitutional General appearance: Present: average body habitus, no acute distress - EENT Eyes: Present: anicteric sclerae, EOMI ENT: Present: hearing grossly normal - Respiratory Details: breathing is even and unlabored - Cardiovascular Details: skin warm and dry - Integumentary Integumentary: Present: normal - Musculoskeletal Musculoskeletal: Present: generalized weakness - Psychiatric Psychiatric: Present: A&O x's 3, appropriate affect, intact judgment & insight - Labs CBC & Chem 7: 04/07/23 05:50 04/07/23 05:50 Labs: Abnormal Lab Results - Last 24 Hours (Table) 04/07/23 04/07/23 Range/Units 05:50 05:50 RBC 3.45 L (4.10-5.20) X 10*6/uL Hgb 10.6 L (12.0-15.0) g/dL Hct 34.6 L (37.2-46.3) % MCV 100.3 H (80.0-97.0) fL MCHC 30.6 L (32.0-37.0) g/dL Immature Gran # 0.06 H (0.00-0.04) X 10*3/uL Monocytes # 1.01 H (0.20-1.00) X 10*3/uL Calcium 8.3 L (8.7-10.3) mg/dL Microbiology - Last 24 Hours (Table) 04/03/23 19:15 Blood Culture - Preliminary Blood 04/03/23 19:30 Blood Culture - Preliminary Blood - Imaging and Cardiology CT scan - abdomen: report reviewed CT scan - chest: report reviewed CT scan - pelvis: report reviewed Assessment and Plan (1) Humerus lesion, right Current Visit: Yes Status: Acute Priority: High Code(s): M89.9 - DISORDER OF BONE, UNSPECIFIED SNOMED Code(s): 85818637108558933 Plan: Humerus mass/pathological fracture: -Right humerus x-ray and CT revealed pathological fracture with comminution and displacement of the fragments. Additional cortical buckling of the right humerus surgical neck also suspicious for fracture. Some ill-defined sclerosis is seen within the soft tissue lesion that extends up to 16.5 cm. Soft tissue component measuring 5x2.7x8.1 cm, extending outside the osseous structures and there are suspected intramuscular deposits and lymphadenopathy suspicious for metastatic disease -CT CAP revealed right proximal humerus obstructive mass with superimposed pathological fracture and extension outside the bone itself into the adjacent soft tissues with suspected at least 2 small satellite lesions in the surrounding muscles as described on prior CT. Scattered pulmonary nodules and enlarged right axillary lymph nodes are suspicious for metastatic disease. No evidence for metastatic disease within the abdomen or pelvis. No greater then 1.0 cm in short axis lymph nodes identified. -No evidence of chest/abdomen primary site on CT CAP. IR consult placed for biopsy of RUE mass vs right axillary LN -NM bone scan pending. -Ortho consulted, recommending evaluation by ortho oncology. Will obtain biopsy and plan for ortho oncology evaluation -Rad/onc consult placed, spoke with Dr. Garcia regarding case. -Pain meds and anti-emetics adjusted. Pain and nausea better controlled, will continue to monitor. -Pt updated on results of CT and plan of care, pt agreeable -Family requesting to discuss potential rehab upon discharge. Per nurse family will be present tomorrow to further discuss with case management
[2023-04-08] MEDS: HYDROcodone/APAP 7.5-325MG 1 EACH TAB PO PRN ×5 (01:23→21:37)
--- NOTE | 2023-04-08 04:55 | PN ---
PROGRESS NOTE DATE OF SERVICE: 04/07/2023 SUBJECTIVE: This 72 woman was admitted with right hand pathological fracture, also had right axillary lymphadenopathy. Patient complaining of some severe pain bone scan is pending at this time. Dr. Trotter is probably planning axillary lymph node biopsy. PAST MEDICAL HISTORY: Reviewed. REVIEW OF SYSTEMS: Fourteen-point review is negative as mentioned earlier. CURRENT MEDICATIONS: Reviewed include Norvasc, dose and rest of medication noted. PHYSICAL EXAMINATION: VITAL SIGNS: Pulse is 78, blood pressure n, respirations 17. CHEST: Clear to auscultation. Right arm swelling and pain. CARDIOVASCULAR: S1, S2 normal. ABDOMEN: Soft NERVOUS SYSTEM: No focal deficits. LABORATORY DATA: Reviewed. ASSESSMENT: 1. Right hand pathological fracture with severe pain. 2. Multiple pulmonary nodules and right axillary lymphadenopathy. 3. Loss of consciousness, syncope, possibly secondary to pain medications per Cardiology, present on admission. 4. Hypertension. 5. Hypokalemia. 6. Multiple complex medical issues. RECOMMENDATIONS AND DISCUSSION: I recommend to continue current management and treatment otherwise. At this time, I would recommend to continue with a conservative line of management. Repeat labs, possible biopsy. Bone scan. Oncology evaluation. Overall prognosis extremely guarded because of multiple complex medical issues. Further recommendations to follow. MMODL / IJN: [id number] / MTDD
[2023-04-08] MEDS: PANTOPRAZOLE 40 MG TABLET PO SCH (05:27)
[2023-04-08] MEDS: SODIUM CHLORIDE 0.9% 1,000 ML IV SCH ×2 (05:28→21:38)
[2023-04-08] MEDS: HEPARIN SODIUM,PORCINE/PF 5,000 UNIT/0.5 ML SYRINGE SQ SCH ×3 (07:41→21:40)
[2023-04-08] MEDS: amLODIPine 5 MG TAB PO SCH (08:11)
[2023-04-08] MEDS: tiZANidine 4 MG TAB PO SCH (08:12)
[2023-04-08 08:37] LABS: Basophils # (A) 0.06 X 10*3/uL (0.00-0.10); Basophils % (A) 0.7 %; Eosinophils # (A) 0.34 X 10*3/uL (0.04-0.35); Eosinophils % (A) 3.7 %; HCT 34.1 % (37.2-46.3); HGB 10.1 g/dL (12.0-15.0); Immature Grans, Automated 0.5 %; Lymphocytes # (A) 1.35 X 10*3/uL (0.90-5.00); Lymphocytes % (A) 14.8 %; MCH 29.7 pg (27.0-32.0); MCHC 29.6 g/dL (32.0-37.0); MCV 100.3 fL (80.0-97.0); Mean Platelet Volume 10.4 fL (9.5-12.2); Monocytes # (A) 0.97 X 10*3/uL (0.20-1.00); Monocytes % (A) 10.6 %; NRBC Per 100 WBC 0 /100 WBCS (0.0-0.0); Neutrophils # (A) 6.36 X 10*3/uL (1.80-7.70); Neutrophils % (A) 69.7 %; Platelet Count 381 X 10*3/uL (140-440); RDW 13.1 % (11.5-14.5); WBC 9.13 X 10*3/uL (4.50-10.00)
[2023-04-08 09:17] LABS: African American GFR (CKD) 104.1 (60.0-200.0); Anion Gap 11.9 mmol/L (10.00-18.00); BUN/Creat Ratio 16.83 Ratio (12.00-20.00); Blood Urea Nitrogen 10.1 mg/dL (9.0-27.0); Calcium 8.6 mg/dL (8.7-10.3); Carbon Dioxide 21.1 mmol/L (20.0-27.5); Non-African American GFR(CKD) 89.8 (60.0-200.0); Potassium 3.9 mmol/L (3.5-5.5)
[2023-04-08] MEDS ORDERED: MORPHINE SULFATE 4 MG/ML SYRINGE IVP STA (11:35)
--- NOTE | 2023-04-08 12:06 | P.PN ---
Subjective Progress Note Date: 04/08/23 CHIEF COMPLAINT: Right axillary lymphadenopathy HISTORY OF PRESENT ILLNESS: Patient presented to hospital with pathologic fracture of right humerus. Patient has significant pain and swelling. Surgical service consulted for lymph node biopsy. Lymph nodes are quite small. Abduction of the arm for surgical biopsy of the axillary nodes would result in further trauma and pain. Recommend percutaneous core biopsy of this mass for definitive diagnosis. Patient is followed by oncology service. Bone scan has been ordered. Afebrile. WBC is 9.13HB 10.1 platelets 381 PHYSICAL EXAM: VITAL SIGNS: Reviewed. GENERAL: Well-developed in no acute distress. HEENT: No sclera icterus. Extraocular movements grossly intact. Moist buccal mucosa. Head is atraumatic, normocephalic. ABDOMEN: Soft. Nondistended. Nontender. NEUROLOGIC: Alert and oriented. Cranial nerves II through XII grossly intact. Extremities right upper arm swelling with significant tenderness. ASSESSMENT: 1. Pathologic fracture of right humerus with evidence of right humerus mass on CT 2. Right axillary lymphadenopathy PLAN: -Consult placed for interventional radiology for core biopsy of humerus mass for definitive diagnosis -Continue supportive care -No surgical intervention planned per general surgery. Lymph nodes are small and abduction of the arm for surgical biopsy of Lymph nodes would cause further trauma and pain. Physician Synthetic Chemist note has been reviewed by physician. Signing provider agrees with the documented findings, assessment, and plan of care. I have personally seen and examined the patient, reviewed the METAL ROOM DENTAL TECHNICIAN /PAs history, exam and MDM and agree with the assessment and plan as written. Based on total visit time, I have performed more than 50% of the visit. As above: Patient is more comfortable today. Apparently percutaneous biopsy not able to be performed here because of no interventional radiologist. Plans are underway for transfer. Objective - Vital Signs Vital signs: Vital Signs Temp 98.2 F 04/08/23 07:12 Pulse 89 04/08/23 07:12 Resp 16 04/08/23 07:12 BP 126/81 04/08/23 07:12 Pulse Ox 93 L 04/08/23 08:49 FiO2 Intake & Output 04/07/23 04/08/23 04/08/23 18:59 06:59 18:59 Intake Total 300 Output Total 350 300 Balance -50 -300 Intake: Oral 300 Output: Urine 350 300 Other: Voiding Method External Catheter External Catheter - Labs CBC & Chem 7: 04/08/23 03:56 04/08/23 03:56 Labs: Abnormal Lab Results - Last 24 Hours (Table) 04/08/23 04/08/23 Range/Units 03:56 03:56 RBC 3.40 L (4.10-5.20) X 10*6/uL Hgb 10.1 L (12.0-15.0) g/dL Hct 34.1 L (37.2-46.3) % MCV 100.3 H (80.0-97.0) fL MCHC 29.6 L (32.0-37.0) g/dL Immature Gran # 0.05 H (0.00-0.04) X 10*3/uL Calcium 8.6 L (8.7-10.3) mg/dL Microbiology - Last 24 Hours (Table) 04/03/23 19:15 Blood Culture - Preliminary Blood 04/03/23 19:30 Blood Culture - Preliminary Blood
--- NOTE | 2023-04-08 13:02 | P.PN ---
Subjective Progress Note Date: 04/08/23 This is a 72-year-old female patient with a known history of chronic obstructive pulmonary disease, CVA/TIA, gastroesophageal reflux disease, anxiety. She had recently fallen and broken her humerus and had been seen orthopedics and she was in a splint and awaiting a computed tomography scan for follow-up. She however apparently passed out while eating dinner on 04/03/2023 was brought in by EMS. It is unclear as the patient possibly was choking on food at the time. Computed tomography scan of the humerus revealed a pathologic fracture with comminution and displacement of the fragments. Additional cortical buckling of the right humerus surgical neck also suspicious for fracture. Some ill-defined sclerosis is seen within the soft tissue lesion that extends up to 16.5 cm. Soft tissue component extends outside the osseous structures and there are suspected intramuscular deposits and lymphadenopathy suspicious for metastatic disease. Computed tomography scan of the chest abdomen and pelvis revealed similar findings of the right humerus along with scattered pulmonary nodules and enlarged right axillary lymph node suspicious for metastatic disease. She is seen today in consultation on the regular medical floor. She is currently resting in bed. She is having continued discomfort in her right upper extremity. She currently denies any worsening shortness of breath, cough or congestion. She is maintaining O2 saturations in the 90s on room air. White count 9.1. Hemoglobin 10.6. Platelets 407. Sodium 140. Potassium 3.8. Bicarb 23. BUN 12. Creatinine 0.6. Urine drug screen was positive for opiates, benzodiazepines and marijuana. She has been initiated on a medication. Heparin for DVT prophylaxis. Normal saline at 60 ML's per hour. The patient is seen today 04/08/2022 in follow-up on the regular medical floor. She is currently resting fairly comfortably in bed. Awake and alert in no acute distress. Maintaining O2 saturations in the 90s on room air. Afebrile. Blood cultures reveal no growth. White count 9.1. Hemoglobin 10.1. Platelets 381. Sodium 137. Potassium 3.9. Bicarb 21. BUN 10. Creatinine 0.6. She remains on bronchodilators as needed. Heparin for DVT prophylaxis. Objective - Vital Signs Vital signs: Vital Signs Temp 98.2 F 04/08/23 07:12 Pulse 89 04/08/23 07:12 Resp 16 04/08/23 07:12 BP 126/81 04/08/23 07:12 Pulse Ox 93 L 04/08/23 08:49 FiO2 Intake & Output 04/07/23 04/08/23 04/08/23 18:59 06:59 18:59 Intake Total 300 Output Total 350 300 Balance -50 -300 Intake: Oral 300 Output: Urine 350 300 Other: Voiding Method External Catheter External Catheter - Exam GENERAL EXAM: Alert, frail 72-year-old female, on room air, fairly comfortable resting in bed. HEAD: Normocephalic. EYES: Normal reaction of pupils, equal size. NOSE: Clear with pink turbinates. THROAT: No erythema or exudates. NECK: No masses, no JVD. CHEST: No chest wall deformity. LUNGS: Equal air entry with no crackles, wheeze, rhonchi or dullness. Diminished. CVS: S1 and S2 normal with no audible murmur, regular rhythm. ABDOMEN: No hepatosplenomegaly, normal bowel sounds, no guarding or rigidity. SPINE: No scoliosis or deformity SKIN: No rashes CENTRAL NERVOUS SYSTEM: No focal deficits, tone is normal in all 4 extremities. EXTREMITIES: Right upper extremity in a sling, there is edema and extreme tenderness. No clubbing, no cyanosis. Peripheral pulses are intact. - Labs CBC & Chem 7: 04/08/23 03:56 04/08/23 03:56 Labs: Abnormal Lab Results - Last 24 Hours (Table) 04/08/23 04/08/23 Range/Units 03:56 03:56 RBC 3.40 L (4.10-5.20) X 10*6/uL Hgb 10.1 L (12.0-15.0) g/dL Hct 34.1 L (37.2-46.3) % MCV 100.3 H (80.0-97.0) fL MCHC 29.6 L (32.0-37.0) g/dL Immature Gran # 0.05 H (0.00-0.04) X 10*3/uL Calcium 8.6 L (8.7-10.3) mg/dL Microbiology - Last 24 Hours (Table) 04/03/23 19:15 Blood Culture - Preliminary Blood 04/03/23 19:30 Blood Culture - Preliminary Blood Assessment and Plan Assessment: Syncopal episode of unclear etiology Pathologic fracture of the right humerus with ill-defined sclerotic bone within the more lucent areas within the humerus. Lesion extends approximately 16.5 cm in length. There is soft tissue within this lesion which displaces the normal fatty bone marrow. Underlying soft tissue mass measuring 5 x 2 x 8 cm extending outside the humerus. Satellite lesions more proximally with the musculature as well. Multiple right axillary lymph nodes that are prominent as well however small and the patient would not be able to perform abduction of the right upper extremity to access the lymph nodes. Interventional radiology was consulted for core biopsy of the humerus mass. Bone scan pending Nonspecific pulmonary nodules, could be metastatic, will need outpatient follow- up. The largest of which is 10 mm in size. 50 year smoking history History of chronic obstructive pulmonary disease, currently inactive and stable History of CVA/TIA History of chronic pain syndrome History of anxiety. Gastric esophageal reflux disease Plan: The patient was seen and evaluated Medications and labs reviewed Bone scan pending Will need biopsy of the right humerus mass Continue bronchodilators as needed We will continue to follow I have personally seen and examined the patient, performed the documentation and the assessment and plan as written. Number of minutes spent on the visit: 10.
--- NOTE | 2023-04-08 13:43 | NM ---
EXAMINATION TYPE: NM bone scan whole body DATE OF EXAM: 04/08/2023 COMPARISON: Radiograph 04/04/2023 CLINICAL INDICATION: Female, 72 years old with history of Bone mets; Per the technologist the Patient was severely claustrophobic and would not allow camera over her head . Patient was also saturated in urine. Patient unwilling to continue with imaging. Delayed whole-body scanning was performed following the injection of 25 mCi Tc 99m MDP. Images acqui red 4 hours post injection. The head, neck, upper chest and upper portions of the upper extremities a re not included on the field of view. FINDINGS: There is increased radiotracer accumulation at the proximal right humerus which is subsequently cut o ff the [id number]. No additional areas of abnormal increased uptake are seen. There appears to be distention of the urinary bladder with urine throughout the pelvis. Degenerative uptake about the tho racolumbar spine, knees and ankles. IMPRESSION: Significantly limited study. The proximal right humerus there is increased radiotracer accumulation w hich is subsequently cut off the [id number] given the aforementioned limitations. Recent radiograp h demonstrates pathologic fracture in this region.
--- NOTE | 2023-04-08 14:10 | P.PN ---
Subjective Progress Note Date: 04/08/23 Principal diagnosis: Intractable pain, pathological fracture of RUE In f/u today pt being medicated for pain, she reports pain "all over", even touching the pt causes her discomfort. She is now reporting significant BLE weakness, she winces in pain just touching the legs, denies headache, chest pain, N,V, she is reporting that she is very thirsty. She cannot walk. Objective - Vital Signs Vital signs: Vital Signs Temp 98.2 F 04/08/23 07:12 Pulse 89 04/08/23 07:12 Resp 16 04/08/23 07:12 BP 126/81 04/08/23 07:12 Pulse Ox 93 L 04/08/23 08:49 FiO2 Intake & Output 04/07/23 04/08/23 04/08/23 18:59 06:59 18:59 Intake Total 300 Output Total 350 300 Balance -50 -300 Intake: Oral 300 Output: Urine 350 300 Other: Voiding Method External Catheter External Catheter - Constitutional General appearance: Present: average body habitus (petite), cooperative, no acute distress - EENT Eyes: Present: anicteric sclerae, EOMI ENT: Present: hearing grossly normal - Respiratory Details: resp even and unlabored - Peripheral edema leg Peripheral Edema: bilateral: None - Neurologic Neurologic: Present: CNII-XII intact (grossly) - Musculoskeletal Musculoskeletal Comment(s): pt will not move her legs for exam-states too much pain Musculoskeletal: Present: generalized weakness - Psychiatric Psychiatric: Present: A&O x's 3, appropriate affect, intact judgment & insight - Labs CBC & Chem 7: 04/08/23 03:56 04/08/23 03:56 Labs: Abnormal Lab Results - Last 24 Hours (Table) 04/08/23 04/08/23 Range/Units 03:56 03:56 RBC 3.40 L (4.10-5.20) X 10*6/uL Hgb 10.1 L (12.0-15.0) g/dL Hct 34.1 L (37.2-46.3) % MCV 100.3 H (80.0-97.0) fL MCHC 29.6 L (32.0-37.0) g/dL Immature Gran # 0.05 H (0.00-0.04) X 10*3/uL Calcium 8.6 L (8.7-10.3) mg/dL Microbiology - Last 24 Hours (Table) 04/03/23 19:15 Blood Culture - Preliminary Blood 04/03/23 19:30 Blood Culture - Preliminary Blood Assessment and Plan (1) Humerus lesion, right Current Visit: Yes Status: Acute Priority: High Code(s): M89.9 - DISORDER OF BONE, UNSPECIFIED SNOMED Code(s): [id number] Plan: Humerus mass/pathological fracture -Right humerus x-ray and CT revealed pathological fracture with comminution and displacement of the fragments. Additional cortical buckling of the right humerus surgical neck also suspicious for fracture. Some ill-defined sclerosis is seen within the soft tissue lesion that extends up to 16.5 cm. Soft tissue component measuring 5x2.7x8.1 cm, extending outside the osseous structures and there are suspected intramuscular deposits and lymphadenopathy suspicious for metastatic disease -CT CAP neg other then some small pulm nodules. NM bone scan pending update- report reviewed at 1400, not a complete scan due to pt anxiety. Report states image distal humerous caudal completed, no other bone lesions seen other then the Rt humerus. -Discussed case with Rad Onc Dr. Garcia. He will help get info to Ortho Onc at [facility] to see if they think that the humerus is amenable to surgical repair. -Discussed case with Surgical PA. No lymph node biopsy is planned, may be reactive and the mass on the bone is very large, easy target for biopsy. -If not a candidate for Ortho Onc surgical intervention then certainly need IR to biopsy of the bone -Cont pain mgmt, titrate for comfort. Meds to prevent narcotic induced constipation -Pt and son at bedside updated on plan of care attests: I have seen and examined pt, performed H&P, developed impression and plan of care. Discussed with dictator. Agree with documentation, dictated as a scribe.
[2023-04-08] MEDS: ONDANSETRON 4 MG/2 ML VIAL IVP PRN (16:07)
--- NOTE | 2023-04-08 22:44 | P.PN ---
Subjective Progress Note Date: 04/08/23 She complains of increased pain today, states she is sore throughout and anxious about her bone scan. Labs and vitals are stable. Objective - Vital Signs Vital signs: Vital Signs Temp 98.7 F 04/08/23 20:00 Pulse 91 04/08/23 20:00 Resp 16 04/08/23 20:00 BP 119/68 04/08/23 20:00 Pulse Ox 94 L 04/08/23 20:00 FiO2 Intake & Output 04/08/23 04/08/23 04/09/23 06:59 18:59 06:59 Intake Total 480 Output Total 300 650 Balance -300 -170 Intake: Oral 480 Output: Urine 300 650 Other: Voiding Method External Catheter Indwelling Catheter - Exam Gen: elderly female, anxious CV: RRR, no murmur Lungs: CTAB - Labs CBC & Chem 7: 04/08/23 03:56 04/08/23 03:56 Labs: Abnormal Lab Results - Last 24 Hours (Table) 04/08/23 04/08/23 Range/Units 03:56 03:56 RBC 3.40 L (4.10-5.20) X 10*6/uL Hgb 10.1 L (12.0-15.0) g/dL Hct 34.1 L (37.2-46.3) % MCV 100.3 H (80.0-97.0) fL MCHC 29.6 L (32.0-37.0) g/dL Immature Gran # 0.05 H (0.00-0.04) X 10*3/uL Calcium 8.6 L (8.7-10.3) mg/dL Microbiology - Last 24 Hours (Table) 04/03/23 19:15 Blood Culture - Preliminary Blood 04/03/23 19:30 Blood Culture - Preliminary Blood Assessment and Plan Plan: Continue with pain control, IV morphine prior to bone scan. Oncology following and pt scheduling for outpatient biopsy
[2023-04-09] MEDS: HYDROcodone/APAP 7.5-325MG 1 EACH TAB PO PRN ×2 (01:54→07:53)
[2023-04-09] MEDS: HEPARIN SODIUM,PORCINE/PF 5,000 UNIT/0.5 ML SYRINGE SQ SCH ×2 (07:53→07:59)
[2023-04-09] MEDS: PANTOPRAZOLE 40 MG TABLET PO SCH (07:54)
[2023-04-09] MEDS: tiZANidine 4 MG TAB PO SCH (07:54)
[2023-04-09] MEDS: amLODIPine 5 MG TAB PO SCH (07:54)
[2023-04-09] MEDS: SODIUM CHLORIDE 0.9% 1,000 ML IV SCH (07:54)
--- NOTE | 2023-04-09 11:05 | P.PN ---
Subjective Progress Note Date: 04/09/23 This is a 72-year-old female patient with a known history of chronic obstructive pulmonary disease, CVA/TIA, gastroesophageal reflux disease, anxiety. She had recently fallen and broken her humerus and had been seen orthopedics and she was in a splint and awaiting a computed tomography scan for follow-up. She however apparently passed out while eating dinner on 04/03/2023 was brought in by EMS. It is unclear as the patient possibly was choking on food at the time. Computed tomography scan of the humerus revealed a pathologic fracture with comminution and displacement of the fragments. Additional cortical buckling of the right humerus surgical neck also suspicious for fracture. Some ill-defined sclerosis is seen within the soft tissue lesion that extends up to 16.5 cm. Soft tissue component extends outside the osseous structures and there are suspected intramuscular deposits and lymphadenopathy suspicious for metastatic disease. Computed tomography scan of the chest abdomen and pelvis revealed similar findings of the right humerus along with scattered pulmonary nodules and enlarged right axillary lymph node suspicious for metastatic disease. She is seen today in consultation on the regular medical floor. She is currently resting in bed. She is having continued discomfort in her right upper extremity. She currently denies any worsening shortness of breath, cough or congestion. She is maintaining O2 saturations in the 90s on room air. White count 9.1. Hemoglobin 10.6. Platelets 407. Sodium 140. Potassium 3.8. Bicarb 23. BUN 12. Creatinine 0.6. Urine drug screen was positive for opiates, benzodiazepines and marijuana. She has been initiated on a medication. Heparin for DVT prophylaxis. Normal saline at 60 ML's per hour. The patient is seen today 04/08/2022 in follow-up on the regular medical floor. She is currently resting fairly comfortably in bed. Awake and alert in no acute distress. Maintaining O2 saturations in the 90s on room air. Afebrile. Blood cultures reveal no growth. White count 9.1. Hemoglobin 10.1. Platelets 381. Sodium 137. Potassium 3.9. Bicarb 21. BUN 10. Creatinine 0.6. She remains on bronchodilators as needed. Heparin for DVT prophylaxis. The patient is seen today 04/09/2023 in follow-up on the regular medical floor. Her pain is better controlled today. She is maintaining good O2 saturation 97 room air. She has normal saline at 60 ML's per hour. Bone scan revealed increased radiotracer accumulation of the proximal right humerus. No additional areas of abnormal increased uptake was seen. Blood cultures revealed no growth. She is on heparin for DVT prophylaxis. [place] for pain control. Objective - Vital Signs Vital signs: Vital Signs Temp 98.8 F 04/09/23 06:54 Pulse 92 04/09/23 06:54 Resp 16 04/09/23 06:54 BP 158/78 04/09/23 06:54 Pulse Ox 92 L 04/09/23 09:02 FiO2 Intake & Output 04/08/23 04/09/23 04/09/23 18:59 06:59 18:59 Intake Total 480 Output Total 650 2000 Balance -170 -1999 Intake: Oral 480 Output: Urine 650 2000 Other: Voiding Method Indwelling Catheter Indwelling Catheter - Exam GENERAL EXAM: Alert, frail 72-year-old female, on room air, fairly comfortable resting in bed. HEAD: Normocephalic. EYES: Normal reaction of pupils, equal size. NOSE: Clear with pink turbinates. THROAT: No erythema or exudates. NECK: No masses, no JVD. CHEST: No chest wall deformity. LUNGS: Equal air entry with no crackles, wheeze, rhonchi or dullness. Diminished. CVS: S1 and S2 normal with no audible murmur, regular rhythm. ABDOMEN: No hepatosplenomegaly, normal bowel sounds, no guarding or rigidity. SPINE: No scoliosis or deformity SKIN: No rashes CENTRAL NERVOUS SYSTEM: No focal deficits, tone is normal in all 4 extremities. EXTREMITIES: Right upper extremity in a sling, there is edema and extreme tenderness. No clubbing, no cyanosis. Peripheral pulses are intact. - Labs CBC & Chem 7: 04/08/23 03:56 04/08/23 03:56 Labs: Microbiology - Last 24 Hours (Table) 04/03/23 19:15 Blood Culture - Final Blood 04/03/23 19:30 Blood Culture - Final Blood Assessment and Plan Assessment: Syncopal episode of unclear etiology Pathologic fracture of the right humerus with ill-defined sclerotic bone within the more lucent areas within the humerus. Lesion extends approximately 16.5 cm in length. There is soft tissue within this lesion which displaces the normal fatty bone marrow. Underlying soft tissue mass measuring 5 x 2 x 8 cm extending outside the humerus. Satellite lesions more proximally with the musculature as well. Multiple right axillary lymph nodes that are prominent as well however small and the patient would not be able to perform abduction of the right upper extremity to access the lymph nodes. Interventional radiology was consulted for core biopsy of the humerus mass. Bone scan revealed increased radiotracer cannulation at the proximal right humerus. No additional areas of abnormal increased uptake was noted. Nonspecific pulmonary nodules, could be metastatic, will need outpatient follow- up. The largest of which is 10 mm in size. 50 year smoking history History of chronic obstructive pulmonary disease, currently inactive and stable History of CVA/TIA History of chronic pain syndrome History of anxiety. Gastric esophageal reflux disease Plan: The patient was seen and evaluated Medications reviewed Bone scan reviewed Plan is for transfer to [facility] for orthopedic oncologist I have personally seen and examined the patient, performed the documentation and the assessment and plan as written. Number of minutes spent on the visit: 10.
[2023-04-09] MEDS ORDERED: HYDROcodone/APAP 10-325MG 1 EACH TAB PO PRN (11:20)
[2023-04-09] MEDS ORDERED: HYDROmorphone 0.5 MG/0.5 ML SYRINGE IVP PRN (11:20)
[2023-04-09 11:42] VITALS: BMI 23.6
--- NOTE | 2023-04-09 12:47 | P.PN ---
Subjective Progress Note Date: 04/09/23 Principal diagnosis: RUE pain, weakness At today's visit patient is in bedside chair. Patient is reporting right upper extremity pain. She reports the pain medications are not helping control her pain. Plan is for patient to be transferred to [facility] to have further evaluation by ortho oncology. No other reported complaints at this time. Objective - Vital Signs Vital signs: Vital Signs Temp 98.8 F 04/09/23 06:54 Pulse 92 04/09/23 06:54 Resp 16 04/09/23 06:54 BP 158/78 04/09/23 06:54 Pulse Ox 92 L 04/09/23 09:02 FiO2 Intake & Output 04/08/23 04/09/23 04/09/23 18:59 06:59 18:59 Intake Total 480 Output Total 650 2000 Balance -170 -2000 Weight 58.513 kg Intake: Oral 480 Output: Urine 650 2000 Other: Voiding Method Indwelling Catheter Indwelling Catheter - Constitutional General appearance: Present: average body habitus, no acute distress - EENT Eyes: Present: anicteric sclerae, EOMI ENT: Present: hearing grossly normal - Respiratory Details: breathing is even and unlabored - Cardiovascular Details: skin is warm and dry - Musculoskeletal Musculoskeletal Comment(s): RUE tenderness ands decreased ROM - Psychiatric Psychiatric: Present: A&O x's 3, appropriate affect, intact judgment & insight - Labs CBC & Chem 7: 04/08/23 03:56 04/08/23 03:56 Labs: Microbiology - Last 24 Hours (Table) 04/03/23 19:15 Blood Culture - Final Blood 04/03/23 19:30 Blood Culture - Final Blood Assessment and Plan (1) Humerus lesion, right Current Visit: Yes Status: Acute Priority: High Code(s): M89.9 - DISORDER OF BONE, UNSPECIFIED SNOMED Code(s): [id number] Plan: Humerus mass/pathological fracture: -Right humerus x-ray and CT revealed pathological fracture with comminution and displacement of the fragments. Additional cortical buckling of the right humerus surgical neck also suspicious for fracture. Some ill-defined sclerosis is seen within the soft tissue lesion that extends up to 16.5 cm. Soft tissue component measuring 5x2.7x8.1 cm, extending outside the osseous structures and there are suspected intramuscular deposits and lymphadenopathy suspicious for metastatic disease -CT CAP revealed right proximal humerus obstructive mass with superimposed pa thological fracture and extension outside the bone itself into the adjacent soft tissues with suspected at least 2 small satellite lesions in the surrounding muscles. Scattered pulmonary nodules and enlarged right axillary lymph nodes are suspicious for metastatic disease. No evidence for metastatic disease within the abdomen or pelvis. -No evidence of chest/abdomen primary site on CT CAP. -NM bone scan obtained, limited study due to pt anxiety. Report states proximal right humerus there is increased radiotracer accumulation. No other bone lesions seen other then the Rt humerus, however study was significantly limited -Discussed case with Surgical PA. No lymph node biopsy is planned, may be reactive and the mass on the bone is very large, easy target for biopsy. -Ortho consulted, recommending evaluation by ortho oncology. Case discussed with Rad Onc who helped in communicating with Ortho Onc Dr. Radha Salazar. Opinion is that this rt humerus lesion may be a sarcoma. Dr. Salazar is willing to have pt transfer for further eval, biopsy/surgical repair. Working this am to roseline acevedo with Attending. -Pain not being controlled on current regimen, will adjust pain medications and plan to transition/convert to long acting pain medication. Will continue to monitor. -Pt updated on plan of care and is agreeable attests: I have seen and examined pt, performed H&P, developed impression and plan of care. Discussed with dictator. Agree with documentation, dictated as a scribe.
--- NOTE | 2023-04-09 13:23 | P.PN ---
Subjective Progress Note Date: 04/09/23 CHIEF COMPLAINT: Right axillary lymphadenopathy HISTORY OF PRESENT ILLNESS: Patient presented to hospital with pathologic fracture of right humerus. Patient has significant pain and swelling of the right arm. Interventional radiology service initially consulted for a percutaneous core biopsy of the right humerus mass. Unfortunately there is no interventional radiology service available this week. Patient also followed by oncology service. They're working on transferring patient to [facility] to be evaluated by orthopedic oncologist and possible interventional radiology. PHYSICAL EXAM: VITAL SIGNS: Reviewed. GENERAL: Well-developed in no acute distress. NEUROLOGIC: Alert and oriented. Cranial nerves II through XII grossly intact. Extremities right upper arm swelling with significant tenderness. ASSESSMENT: 1. Pathologic fracture of right humerus with evidence of right humerus mass on CT 2. Right axillary lymphadenopathy PLAN: -Agree with transferring patient to higher level of care for biopsy of mass and further intervention -Continue supportive care Physician Dredgemaster note has been reviewed by physician. Signing provider agrees with the documented findings, assessment, and plan of care. Objective - Vital Signs Vital signs: Vital Signs Temp 98.8 F 04/09/23 06:54 Pulse 92 04/09/23 06:54 Resp 16 04/09/23 06:54 BP 158/78 04/09/23 06:54 Pulse Ox 92 L 04/09/23 09:02 FiO2 Intake & Output 04/08/23 04/09/23 04/09/23 18:59 06:59 18:59 Intake Total 480 Output Total 650 2000 Balance -170 -1999 Weight 58.513 kg Intake: Oral 480 Output: Urine 650 1999 Other: Voiding Method Indwelling Catheter Indwelling Catheter - Labs CBC & Chem 7: 04/08/23 03:56 04/08/23 03:56 Labs: Microbiology - Last 24 Hours (Table) 04/03/23 19:15 Blood Culture - Final Blood 04/03/23 19:30 Blood Culture - Final Blood
[2023-04-09 15:21] VITALS: BP 112/65; PULSE 75; RESP 18; TEMP 98.4
--- NOTE | 2023-04-12 14:44 | CDI ---
Documentation Clarification Form Date: 04/12/23 From: Hermelinda Segura Admit Date: 04/03/2023 08:50:00 PM Patient Name: Mehnaz Carrasco Visit Number: [id number] Discharge Date: 04/09/2023 03:26:00 PM ATTENTION: The Clinical Documentation Specialists (CDI) and [facility] Coding Staff appreciate your assistance in clarifying documentation. Please respond to the clarification below the line at the bottom and electronically sign. The CDI & [facility] Coding staff will review the response and follow-up if needed. Please note: Queries are made part of the Legal Health Record. If you have any questions, please contact the author of this message via ITS. Dr. Fidel Viveros, Syncope is documented 04/04 H&P. Additional clarification regarding the etiology of the syncope is requested. History/risk factors: HTN, Heart Disease, Presence of Neuro stimulator, Hypokalemia, GERD, Hx TIA/Strokes, COPD, and Anxiety Disorder Clinical Indicators: 04/04 H&P passed out at the table, Allergy to Codeine Labs: 04/04 Opiate Positive, Benzodiazepines Positive Transthoracic Echo: 04/04 Normal LV size and systolic function. There is mild concentric VH. Mild mitral and thecalcificationmildmitral and tricuspid regurgitationno pulmonary hypertensionnopericardial effusion EK/17 Vent Rate 61 bpm, QRS 82ms, Qt/QTc 427/[address]: 04/05 Scattered pulmonarynodulesandenlarged right axillary lymph nodesare suspicious formetastaticdisease. Vitals: 04/03 BP 83/33, 94/51, 80/54, 110/67, 115/70 04/05-04/09 O2 91-94L Treatment: P/N 04/04 Electrolytesupplementationordered with repeat potassium level this afternoon .Cardiology and orthopedics consulted. 2-D echo pending. 04/05 I will start the patient on amlodipine 10 mg daily for bloodpressurecontrol. 04/06 No further cardiac workup at this time Consults 04/04 The patient'ssyncopeseemsto be related to thepainpills that she was on. She really responded to Narcan immediately.I will obtain a 2D echo and if this looks normal from cardiac standpoint, she does not require any other workup. Please clarify the etiology of syncope, if known: [ X ] Orthostatic Hypotension due to/type accidental opiate overdose [ ] Arrhythmia, specify type [ ] Carotid Sinus Syncope [ ] Vasovagal [ ] Psychogenic Syncope [ ] Adverse Effect of Drug [ ] Other, please specify [ ] Unable to determine MTDD
== END 2023-04-09 15:26 | disposition short-term general hospital (02) | DRG 918 ==
LOC: SUPCPDRO 17:55 → EC 17:55 → 3SCARD 20:50 → 4SSUR 04-06 01:55
PROVIDERS: ADMIT Family Medicine; ATTEND Family Medicine
DX: T50.905A Adverse effect of unspecified drugs, medicaments and biological substances, initial encounter (principal); R55 Syncope and collapse; I95.2 Hypotension due to drugs; I11.9 Hypertensive heart disease without heart failure; E86.0 Dehydration; J44.9 Chronic obstructive pulmonary disease, unspecified; M84.421D Pathological fracture, right humerus, subsequent encounter for fracture with routine healing; E87.6 Hypokalemia; Y92.030 Kitchen in apartment as the place of occurrence of the external cause; Z20.822 Contact with and (suspected) exposure to COVID-19; M19.90 Unspecified osteoarthritis, unspecified site; M54.2 Cervicalgia; R32 Unspecified urinary incontinence; G89.4 Chronic pain syndrome; K21.9 Gastro-esophageal reflux disease without esophagitis; F41.9 Anxiety disorder, unspecified; R59.0 Localized enlarged lymph nodes; M89.321 Hypertrophy of bone, right humerus; R91.8 Other nonspecific abnormal finding of lung field; M54.9 Dorsalgia, unspecified; Z79.899 Other long term (current) drug therapy; Z88.5 Allergy status to narcotic agent; Z86.73 Personal history of transient ischemic attack (TIA), and cerebral infarction without residual deficits; Z87.891 Personal history of nicotine dependence; Z91.81 History of falling; Z96.82 Presence of neurostimulator
CPT/HCPCS: 36415; 71260; 74177; 78306; 80048; 80053; 80306; 81003; 83605; 83735; 84132; 84484; 85025; 85610; 85730; 87040; 87635; 93005; 93306; 94760; 96361; 96374; 99291

== ENCOUNTER 2023-05-10 11:31 | Inpatient (IN) | payer MEDICARE, OTHER ==
[2023-05-10] MEDS ORDERED: IPRATROPIUM-ALBUTEROL 3 ML NEB INHALATION STA (12:18)
--- NOTE | 2023-05-10 12:22 | ED ---
General Adult HPI - General Chief complaint: Arrhythmia/Palpitations Stated complaint: AFIB Time Seen by Provider: 05/10/23 11:57 Source: patient, RN notes reviewed Mode of arrival: EMS Limitations: physical limitation - History of Present Illness Initial comments: Patient is a pleasant 73-year-old female presenting to the emergency department with concerns with difficulty breathing. Onset of symptoms was the past couple of days. Patient is a poor historian. Patient denies any history of A. fib. [facility] Patient had recent surgery right humerus secondary to bone cancer. There is also questionable lesions in the lungs. Patient believes she does have history of COPD however has not confident regarding this. Patient states she does take inhalers at home. No leg pain or leg swelling. - Related Data Home Medications Medication Instructions Recorded Confirmed Naloxone HCl [Narcan] 4 mg NASAL DIRECTED PRN 04/03/23 05/10/23 Omeprazole [PriLOSEC] 20 mg PO DAILY@0800 04/03/23 05/10/23 Acetaminophen [Tylenol] 650 mg PO Q4H PRN 05/10/23 05/10/23 Calcium Carbonate/Vitamin D3 1 tab PO BID@0800,1700 05/10/23 05/10/23 [Oyster Shell 250-Vit D3 3.125 Mcg (125 Iu)] Enoxaparin Sodium 40 mg SQ DAILY@1700 05/10/23 05/10/23 Ensure Enlive 120 ml PO BID@0800,1700 05/10/23 05/10/23 Ergocalciferol (Vitamin D2) 1,250 mcg PO TH@0800 05/10/23 05/10/23 [Drisdol (50,000 Iu)] Ipratropium-Albuterol Nebulize 3 ml INHALATION RT-Q6H PRN 05/10/23 05/10/23 [Duoneb 0.5 mg-3 mg/3 ml Soln] Magnesium Hydroxide [Milk of 7,200 mg PO Q48H PRN 05/10/23 05/10/23 Magnesia Concentrate] Na Phos,M-B/Na Phos,Di-Ba [Fleet 133 ml RECTAL DAILY PRN 05/10/23 05/10/23 Adult] Nystatin [Nystatin Oral Susp] 500,000 unit PO QID@08,12,17,21 05/10/23 05/10/23 Sennosides/Docusate Sodium 1 tab PO BID@0800,1700 05/10/23 05/10/23 [Senna-S 8.6-50 mg Tablet] bisacodyL [Dulcolax] 10 mg RECTAL DAILY PRN 05/10/23 05/10/23 fentaNYL 25MCG/HR PATCH [Duragesic 1 patch TRANSDERM Q72H 05/10/23 05/10/23 25MCG/HR] oxyCODONE-APAP 10-325MG [Percocet 1 tab PO Q6HR PRN 05/10/23 05/10/23 10-325 mg] polyethylene glycoL 3350 [Miralax] 17 gm PO BID PRN 05/10/23 05/10/23 polyethylene glycoL 3350 [Miralax] 17 gm PO DAILY@0800 05/10/23 05/10/23 Allergies Allergy/AdvReac Type Severity Reaction Status Date / Time codeine Allergy Rash/Hives Verified 05/10/23 12:40 Review of Systems ROS Statement: Those systems with pertinent positive or pertinent negative responses have been documented in the HPI. ROS Other: All systems not noted in ROS Statement are negative. Constitutional: Denies: fever Eyes: Denies: eye pain ENT: Denies: ear pain Respiratory: Denies: cough Cardiovascular: Reports: as per HPI, palpitations Endocrine: Denies: fatigue Gastrointestinal: Denies: abdominal pain Genitourinary: Denies: dysuria Musculoskeletal: Denies: back pain Skin: Denies: rash Neurological: Denies: weakness Past Medical History Past Medical History: COPD, CVA/TIA, GERD/Reflux, Osteoarthritis (OA) Additional Past Medical History / Comment(s): "MINI STROKES", BLADDER LEAKAGE, CHRONIC NECK PAIN , History of Any Multi-Drug Resistant Organisms: None Reported Past Surgical History: Appendectomy, Cholecystectomy Additional Past Surgical History / Comment(s): DENTAL SURGERY ,EXCISION GANGLION CYST -RIGHT HAND Past Anesthesia/Blood Transfusion Reactions: No Reported Reaction Past Psychological History: Anxiety Smoking Status: Former smoker Past Alcohol Use History: Rare Past Drug Use History: None Reported - Past Family History Mother Family Medical History: Cancer General Exam Limitations: physical limitation General appearance: alert, in no apparent distress Head exam: Present: normocephalic Eye exam: Present: normal appearance Neck exam: Present: normal inspection Respiratory exam: Present: decreased breath sounds (Bilateral bases) Cardiovascular Exam: Present: tachycardia, irregular rhythm GI/Abdominal exam: Present: soft. Absent: tenderness Extremities exam: Present: other (Right upper arm with recent postsurgical changes). Absent: pedal edema, calf tenderness Neurological exam: Present: alert Psychiatric exam: Present: normal affect, normal mood Skin exam: Present: normal color Course Vital Signs 05/10/23 05/10/23 05/10/23 11:38 11:45 12:03 Pulse Rate 179 H 125 H Pulse Rate [ 180 H Stringer Up Soldering Machine ] Respiratory 24 24 Rate Blood Pressure 94/74 75/40 O2 Sat by Pulse 95 96 Oximetry 05/10/23 05/10/23 05/10/23 12:38 12:47 13:00 Pulse Rate 118 H 120 H 118 H Pulse Rate [ Stringer Up Soldering Machine ] Respiratory 24 Rate Blood Pressure 94/60 O2 Sat by Pulse 96 Oximetry - Reevaluation(s) Reevaluation #1: 05/10/23 12:22 Patient on playground monitor to evaluate for arrhythmia. Patient has A. fib with a rate of 125. 05/10/23 13:20 Patient does have urinary tract infection with leukocytosis. Blood culture and lactic acid and IV antibiotic's will be ordered. Heart rate is attributed to atrial fibrillation. Patient does have evidence of fluid overload especially in left lung is not a candidate for any fluid bolus at all secondary to CHF component. EKG Findings - EKG Results: EKG: interpreted by ERMD, normal axis, normal QRS, normal ST/T EKG shows: atrial fibrillation Medical Decision Making - Medical Decision Making Was pt. sent in by a medical professional or institution (, PA, REFINING SUPERVISOR, urgent care, hospital, or [facility]...) When possible be specific @ -Patient was sent from nursing facility for tachycardia Did you speak to anyone other than the patient for history (EMS, parent, family, police, friend...)? What history was obtained from this source @ -Family later arrives and helps right history including no history of A. fib Did you review nursing and triage notes (agree or disagree)? Why? @ -I reviewed and agree with nursing and triage notes Were old charts reviewed (outside hosp., previous admission, EMS record, old EKG, old radiological studies, urgent care reports/EKG's, [facility] records)? Report findings @ -Reviewed previous admission including evaluation of right humerus Differential Diagnosis (chest pain, altered mental status, abdominal pain women, abdominal pain men, vaginal bleeding, weakness, fever, dyspnea, syncope, headache, dizziness, GI bleed, back pain, seizure, CVA, palpatations, mental health)? @ -Differential Dyspnea: Coronary syndrome, arrhythmia, tamponade, asthma, COPD, pulmonary embolism, pneumonia, pneumothorax, pulmonary effusion, anaphylaxis, diabetic ketoacidosis, flailed chest, pulmonary contusion, diaphragmatic rupture, anemia, neuromuscular, this is not meant to be an all-inclusive list. EKG interpreted by me (3pts min.). @ -As above X-rays interpreted by me (1pt min.). @ -Chest x-ray shows postoperative changes and left-sided effusion. Also pulmonary nodular type densities CT interpreted by me (1pt min.). @ -None done U/S interpreted by me (1pt. min.). @ -None done What testing was considered but not performed or refused? (CT, X-rays, U/S, labs)? Why? @ -Consider computed tomography scan however d-dimer still pending. What meds were considered but not given or refused? Why? @ -Considered heparinization. Patient has been on subcu heparin since surgery. Heparin drip will be started. Did you discuss the management of the patient with other professionals (professionals i.e. , PA, REFINING SUPERVISOR, lab, RT, psych nurse, social sciences instructor, dog obedience instructor, teacher, chief security officer, comp field case manager)? Give summary @ -Case was discussed with Dr. Lovell, covering Dr. Viveros, who admits for [facility]. Was smoking cessation discussed for >3mins.? @ -No Was critical care preformed (if so, how long)? @ -31 minutes critical care time Were there social determinants of health that impacted care today? How? (Homelessness, low income, unemployed, alcoholism, drug addiction, transportation, low edu. Level, literacy, decrease access to med. care, [facility], rehab)? @ -No Was there de-escalation of care discussed even if they declined (Discuss DNR or withdrawal of care, Hospice)? DNR status @ -No What co-morbidities impacted this encounter? (DM, HTN, Smoking, COPD, CAD, Cancer, CVA, ARF, Chemo, Hep., AIDS, mental health diagnosis, sleep apnea, morbid obesity)? @ -None Was patient admitted / discharged? Hospital course, mention meds given and route, prescriptions, significant lab abnormalities, going to OR and other pertinent info. @ -Patient reevaluated. Patient and family omitted. Patient started on Cardizem drip. Patient will be placed on heparin drip. Patient will need antibiotics for urinary tract infection. Consults will place with cardiology and pulmonary. Undiagnosed new problem with uncertain prognosis? @ -No Drug Therapy requiring intensive monitoring for toxicity (Heparin, Nitro, Insulin, Cardizem)? @ -Patient will be monitoring with Cardizem and heparin drips Were any procedures done? @ -No Diagnosis/symptom? @ -New-onset A. fib with RVR, CHF, UTI Acute, or Chronic, or Acute on Chronic? @ -Acute, acute, acute Uncomplicated (without systemic symptoms) or Complicated (systemic symptoms)? @ -A. fib is Located with effusion, CHF Side effects of treatment? @ -No Exacerbation, Progression, or Severe Exacerbation? @ -No Poses a threat to life or bodily function? How? (Chest pain, USA, PA, pneumonia, PE, COPD, DKA, ARF, appy, cholecystitis, CVA, Diverticulitis, Homicidal, Suicidal, threat to staff... and all critical care pts) @ -A. fib poses a threat to cardiac and pulmonary function and life - Lab Data Result diagrams: 05/10/23 11:57 05/10/23 11:57 Lab Results 05/10/23 05/10/23 05/10/23 Range/Units 11:57 11:57 11:57 WBC 19.6 H (3.8-10.6) k/uL RBC 3.89 (3.80-5.40) m/uL Hgb 11.7 (11.4-16.0) gm/dL Hct 38.0 (34.0-46.0) % MCV 97.7 (80.0-100.0) fL MCH 30.1 (25.0-35.0) pg MCHC 30.8 L (31.0-37.0) g/dL RDW 14.9 (11.5-15.5) % Plt Count 467 H (150-450) k/uL MPV 8.4 Hypochromasia Slight PT 11.4 (9.0-12.0) sec INR 1.1 (<1.2) APTT 26.7 (22.0-30.0) sec Sodium (137-145) mmol/L Potassium (3.5-5.1) mmol/L Chloride (98-107) mmol/L Carbon Dioxide (22-30) mmol/L Anion Gap mmol/L BUN (7-17) mg/dL Creatinine (0.52-1.04) mg/dL Est GFR (CKD-EPI)AfAm (>60 ml/min/1.73 sqM) Est GFR (CKD-EPI)NonAf (>60 ml/min/1.73 sqM) Glucose (74-99) mg/dL Calcium (8.4-10.2) mg/dL Magnesium (1.6-2.3) mg/dL Total Bilirubin (0.2-1.3) mg/dL AST (14-36) U/L ALT (4-34) U/L Alkaline Phosphatase (38-126) U/L Troponin I (0.000-0.034) ng/mL Total Protein (6.3-8.2) g/dL Albumin (3.5-5.0) g/dL Urine Color Yellow Urine Appearance Turbid H (Clear) Urine pH 7.0 (5.0-8.0) Ur Specific [place] 1.028 (1.001-1.035) Urine Protein 1+ H (Negative) Urine Glucose (UA) Negative (Negative) Urine Ketones Trace H (Negative) Urine Blood Moderate H (Negative) Urine Nitrite Negative (Negative) Urine Bilirubin Negative (Negative) Urine Urobilinogen 4.0 (<2.0) mg/dL Ur Leukocyte Esterase Large H (Negative) Urine RBC 70 H (0-5) /hpf Urine WBC >182 H (0-5) /hpf Urine WBC Clumps Many H (None) /hpf Ur Squamous Epith Cells 1 (0-4) /hpf Triple Phos Crystals Rare H (None) /hpf Urine Bacteria Moderate H (None) /hpf Urine Mucus Many H (None) /hpf 05/10/23 05/10/23 Range/Units 11:57 11:57 WBC (3.8-10.6) k/uL RBC (3.80-5.40) m/uL Hgb (11.4-16.0) gm/dL Hct (34.0-46.0) % MCV (80.0-100.0) fL MCH (25.0-35.0) pg MCHC (31.0-37.0) g/dL RDW (11.5-15.5) % Plt Count (150-450) k/uL MPV Hypochromasia PT (9.0-12.0) sec INR (<1.2) APTT (22.0-30.0) sec Sodium 133 L (137-145) mmol/L Potassium 4.2 (3.5-5.1) mmol/L Chloride 97 L (98-107) mmol/L Carbon Dioxide 25 (22-30) mmol/L Anion Gap 11 mmol/L BUN 32 H (7-17) mg/dL Creatinine 0.74 (0.52-1.04) mg/dL Est GFR (CKD-EPI)AfAm >90 (>60 ml/min/1.73 sqM) Est GFR (CKD-EPI)NonAf 80 (>60 ml/min/1.73 sqM) Glucose 146 H (74-99) mg/dL Calcium 8.6 (8.4-10.2) mg/dL Magnesium 2.2 (1.6-2.3) mg/dL Total Bilirubin 0.5 (0.2-1.3) mg/dL AST 21 (14-36) U/L ALT 14 (4-34) U/L Alkaline Phosphatase 98 (38-126) U/L Troponin I 0.014 (0.000-0.034) ng/mL Total Protein 5.8 L (6.3-8.2) g/dL Albumin 2.7 L (3.5-5.0) g/dL Urine Color Urine Appearance (Clear) Urine pH (5.0-8.0) Ur Specific [place] (1.001-1.035) Urine Protein (Negative) Urine Glucose (UA) (Negative) Urine Ketones (Negative) Urine Blood (Negative) Urine Nitrite (Negative) Urine Bilirubin (Negative) Urine Urobilinogen (<2.0) mg/dL Ur Leukocyte Esterase (Negative) Urine RBC (0-5) /hpf Urine WBC (0-5) /hpf Urine WBC Clumps (None) /hpf Ur Squamous Epith Cells (0-4) /hpf Triple Phos Crystals (None) /hpf Urine Bacteria (None) /hpf Urine Mucus (None) /hpf Critical Care Time Critical Care Time: Yes Total Critical Care Time: 31 Disposition Clinical Impression: Atrial fibrillation, Tachycardia, CHF (congestive heart failure), UTI (urinary tract infection) Disposition: ADMITTED IP TO THIS [facility] Condition: Serious Is patient prescribed a controlled substance at d/c from ED?: No Referrals: Isra Barger MD [Medical Doctor] - 1-2 days Time of Disposition: 13:22
[2023-05-10 12:31] LABS: ALT 14 U/L (4-34); AST 21 U/L (14-36); African American GFR (CKD) >90 (>60 ml/min/1.73 sqM); Albumin 2.7 g/dL (3.5-5.0); Alkaline Phosphatase 98 U/L (38-126); Anion Gap 11 mmol/L; Blood Urea Nitrogen 32 mg/dL (7-17); Calcium 8.6 mg/dL (8.4-10.2); Carbon Dioxide 25 mmol/L (22-30); Chloride 97 mmol/L (98-107); Glucose 146 mg/dL (74-99); Magnesium 2.2 mg/dL (1.6-2.3); Non-African American GFR(CKD) 80 (>60 ml/min/1.73 sqM); Potassium 4.2 mmol/L (3.5-5.1); Sodium 133 mmol/L (137-145); Total Bilirubin 0.5 mg/dL (0.2-1.3); Total Protein 5.8 g/dL (6.3-8.2)
[2023-05-10 12:34] LABS: Appearance,Urine Turbid (Clear); Bacteria,Urine Moderate /hpf; Bilirubin,Urine Negative (Negative); Blood,Urine Moderate (Negative); Color,Urine Yellow; Glucose,Urine (UA) Negative (Negative); Ketones,Urine Trace (Negative); Leukocyte Esterase,Urine Large (Negative); Mucus,Urine Many /hpf; Nitrite,Urine Negative (Negative); Protein,Urine 1+ (Negative); RBC,Urine 70 /hpf (0-5); Specific Gravity,Urine 1.028 (1.001-1.035); Squamous Epithelial Cell,Urine 1 /hpf (0-4); Triple Phosphate Crystal,Urine Rare /hpf; WBC,Urine >182 /hpf (0-5)
[2023-05-10] MEDS: DILTIAZEM 125 MG in SODIUM CHLORIDE 0.9% 100 ML IV SCH (12:38)
[2023-05-10 12:43] LABS: HGB 11.7 gm/dL (11.4-16.0); Hypochromasia Slight; MCH 30.1 pg (25.0-35.0); MCHC 30.8 g/dL (31.0-37.0); MCV 97.7 fL (80.0-100.0); Mean Platelet Volume 8.4; Platelet Count 467 k/uL (150-450); RBC 3.89 m/uL (3.80-5.40); RDW 14.9 % (11.5-15.5); WBC 19.6 k/uL (3.8-10.6)
--- NOTE | 2023-05-10 12:43 | XR ---
EXAMINATION TYPE: XR chest 2V DATE OF EXAM: 05/10/2023 COMPARISON: NONE HISTORY: Shortness of breath TECHNIQUE: Frontal and lateral views of the chest are obtained. FINDINGS: Scattered senescent parenchymal changes noted. Hyperinflation compatible with COPD. Moderate opacification left lower lobe with loculated pleural effusion. Scattered bilateral pulmonary nodules noted. Heart size is stable. Mediastinal structures are stable and grossly unremarkable. No evidence for hilar prominence. Degenerative changes dorsal spine. Postoperative changes right humerus and right shoulder. IMPRESSION: 1. Moderate opacification left lower lobe with loculated pleural effusion. Scattered bilateral pulmon guy nodules noted.
[2023-05-10 12:44] LABS: INR 1.1 (<1.2); Partial Thromboplastin Time 26.7 sec (22.0-30.0); Prothrombin Time 11.4 sec (9.0-12.0)
[2023-05-10] MEDS ORDERED: ASPIRIN 325 MG TAB PO STA (13:23)
[2023-05-10 13:52] LABS: Band Neutrophils % 2 %; Lymphocytes # (M) 0.78 k/uL (1.0-4.8); Monocytes # (M) 1.18 k/uL (0-1.0); Myelocytes % 1 %; Neutrophils % (M) 87 %; Nucleated Red Blood Cells 0 /100 WBC (0-0); Total Cells Counted 200
[2023-05-10] MEDS: FUROSEMIDE 10 MG/ML 2 ML VIAL IV SCH (14:53)
[2023-05-10] MEDS ORDERED: bisacodyL 10 MG SUPP RECTAL PRN (15:04)
[2023-05-10] MEDS ORDERED: polyethylene glycoL 3350 17 GM POWD.PACK PO PRN (15:04)
--- NOTE | 2023-05-10 15:08 | P.HPIM ---
History of Present Illness H&P Date: 05/10/23 History of present illness; patient is a 73-year-old lady with past medical significant for COPD, recent humerus surgery presented to ER from half-way for shortness of breath. Patient has been having shortness of breath for the last few days. Complaining of chest pressure as well. Denies any fever. no cough. complaining of lethargy and weakness. patient was found to be in a. fib with rvr in the er Initial lab work done showed WBC 9.6, hemoglobin 11.7, platelet count 467, sodium 133, potassium 4.2, BUN 32, urine suspicious for UTI Chest x-ray done showed moderate opacification of left lower lobe with loculated pleural effusion Patient was admitted to medicine service REVIEW OF SYSTEMS: CONSTITUTIONAL: No fever,. Complaining of lethargy and loss of appetite HEENT: No recent visual problems or hearing problems. Denied any sore throat. CARDIOVASCULAR: Mentioned in HPI PULMONARY: As mentioned in HPI GASTROINTESTINAL: No diarrhea, no nausea, no vomiting, no abdominal pain. NEUROLOGICAL: No headaches, no weakness, no numbness. HEMATOLOGICAL: Denies any bleeding or petechiae. GENITOURINARY: Denies any burning micturition, frequency, or urgency. MUSCULOSKELETAL/RHEUMATOLOGICAL: Denies any joint pain, swelling, or any muscle pain. ENDOCRINE: Denies any polyuria or polydipsia. The rest of the 14-point review of systems is negative. PHYSICAL EXAMINATION: GENERAL: The patient is alert and oriented x3, not in any acute distress. Well developed, well nourished. HEENT: Pupils are round and equally reacting to light. EOMI. No scleral icterus. No conjunctival pallor. Normocephalic, atraumatic. No pharyngeal erythema. No thyromegaly. CARDIOVASCULAR: S1 and S2 present. No murmurs, rubs, or gallops. PULMONARY: Tachypneic, Shallow breaths, coarse breath some bilaterally ABDOMEN: Soft, nontender, nondistended, normoactive bowel sounds. No palpable organomegaly. MUSCULOSKELETAL: No joint swelling or deformity. Right upper extremity surgical incision seen EXTREMITIES: No cyanosis, clubbing, or pedal edema. NEUROLOGICAL: Gross neurological examination did not reveal any focal deficits. SKIN: No rashes. Assessment and plan A. fib with RVR UTI Pleural effusion [place] History of pathologic fracture of right humerus Right axillary lymphadenopathy Monitor vital signs Monitor CBC Monitor CMP Continue oxygen supplementation Continue IV Cardizem Continue heparin drip Continue IV Rocephin Cardiology consulted Pulmonology consulted for pleural effusion DVT prophylaxis: Past Medical History Past Medical History: COPD, CVA/TIA, GERD/Reflux, Osteoarthritis (OA) Additional Past Medical History / Comment(s): "MINI STROKES", BLADDER LEAKAGE, CHRONIC NECK PAIN , History of Any Multi-Drug Resistant Organisms: None Reported Past Surgical History: Appendectomy, Cholecystectomy Additional Past Surgical History / Comment(s): DENTAL SURGERY ,EXCISION GANGLION CYST -RIGHT HAND Past Anesthesia/Blood Transfusion Reactions: No Reported Reaction Past Psychological History: Anxiety Smoking Status: Former smoker Past Alcohol Use History: Rare Past Drug Use History: None Reported - Past Family History Mother Family Medical History: Cancer Medications and Allergies Home Medications Medication Instructions Recorded Confirmed Type Naloxone HCl [Narcan] 4 mg NASAL DIRECTED PRN 04/03/23 05/10/23 History Omeprazole [PriLOSEC] 20 mg PO DAILY@0800 04/03/23 05/10/23 History Acetaminophen [Tylenol] 650 mg PO Q4H PRN 05/10/23 05/10/23 History Calcium Carbonate/Vitamin D3 1 tab PO BID@0800,1700 05/10/23 05/10/23 History [Oyster Shell 250-Vit D3 3.125 Mcg (125 Iu)] Enoxaparin Sodium 40 mg SQ DAILY@1700 05/10/23 05/10/23 History Ensure Enlive 120 ml PO BID@0800,1700 05/10/23 05/10/23 History Ergocalciferol (Vitamin D2) 1,250 mcg PO TH@0800 05/10/23 05/10/23 History [Drisdol (50,000 Iu)] Ipratropium-Albuterol Nebulize 3 ml INHALATION RT-Q6H PRN 05/10/23 05/10/23 History [Duoneb 0.5 mg-3 mg/3 ml Soln] Magnesium Hydroxide [Milk of 7,200 mg PO Q48H PRN 05/10/23 05/10/23 History Magnesia Concentrate] Na Phos,M-B/Na Phos,Di-Ba [Fleet 133 ml RECTAL DAILY PRN 05/10/23 05/10/23 History Adult] Nystatin [Nystatin Oral Susp] 500,000 unit PO QID@08,12,17,21 05/10/23 05/10/23 History Sennosides/Docusate Sodium 1 tab PO BID@0800,1700 05/10/23 05/10/23 History [Senna-S 8.6-50 mg Tablet] bisacodyL [Dulcolax] 10 mg RECTAL DAILY PRN 05/10/23 05/10/23 History fentaNYL 25MCG/HR PATCH [Duragesic 1 patch TRANSDERM Q72H 05/10/23 05/10/23 History 25MCG/HR] oxyCODONE-APAP 10-325MG [Percocet 1 tab PO Q6HR PRN 05/10/23 05/10/23 History 10-325 mg] polyethylene glycoL 3350 [Miralax] 17 gm PO BID PRN 05/10/23 05/10/23 History polyethylene glycoL 3350 [Miralax] 17 gm PO DAILY@0800 05/10/23 05/10/23 History Allergies Allergy/AdvReac Type Severity Reaction Status Date / Time codeine Allergy Rash/Hives Verified 05/10/23 12:40 Physical Exam Vitals: Vital Signs Pulse Pulse Resp BP Pulse Ox 05/10/23 14:41 122 H 24 97/44 94 L 05/10/23 13:00 118 H 24 94/60 96 05/10/23 12:47 120 H 05/10/23 12:38 118 H 05/10/23 12:03 125 H 24 75/40 96 05/10/23 11:45 180 H 05/10/23 11:38 179 H 24 94/74 95 Intake and Output 05/09/23 05/10/23 05/10/23 22:59 06:59 14:59 Other: Weight 54.431 kg Results CBC & Chem 7: 05/10/23 11:57 05/10/23 11:57 Labs: Abnormal Lab Results - Last 24 Hours (Table) 05/10/23 05/10/23 05/10/23 Range/Units 11:57 11:57 11:57 WBC 19.6 H (3.8-10.6) k/uL MCHC 30.8 L (31.0-37.0) g/dL Plt Count 467 H (150-450) k/uL Neutrophils # (Manual) 17.40 H (1.3-7.7) k/uL Lymphocytes # (Manual) 0.78 L (1.0-4.8) k/uL Monocytes # (Manual) 1.18 H (0-1.0) k/uL Myelocytes # (Manual) 0.20 H (0) k/uL Sodium 133 L (137-145) mmol/L Chloride 97 L (98-107) mmol/L BUN 32 H (7-17) mg/dL Glucose 146 H (74-99) mg/dL Total Protein 5.8 L (6.3-8.2) g/dL Albumin 2.7 L (3.5-5.0) g/dL Urine Appearance Turbid H (Clear) Urine Protein 1+ H (Negative) Urine Ketones Trace H (Negative) Urine Blood Moderate H (Negative) Ur Leukocyte Esterase Large H (Negative) Urine RBC 70 H (0-5) /hpf Urine WBC >182 H (0-5) /hpf Urine WBC Clumps Many H (None) /hpf Triple Phos Crystals Rare H (None) /hpf Urine Bacteria Moderate H (None) /hpf Urine Mucus Many H (None) /hpf
[2023-05-10] MEDS: HEPARIN SODIUM 1,000 UN/ML (10ML VL) IV PRN (15:13)
[2023-05-10] MEDS: HEPARIN SOD,PORK IN 0.45% NACL 25,000 UNIT in 0.45% NACL 1 250ML.BAG IV SCH (15:15)
--- NOTE | 2023-05-10 15:34 | CA ---
Transthoracic Echo Report Name: Mehnaz Carrasco Age: 73 Gender: F : 1950 Exam Date: 05/10/2023 13:58 Exam Location: [facility] Ht (in): 61 Wt (lb): 120 Ordering Physician: Donovan Walter DO Attending/Referring Phys: Dalton Jung MD Electronic Organ Mechanic Kristin Summers [facility] Procedure CPT: Indications: Heart failure Cardiac Hx: Technical Quality: Technically difficult study Contrast 1: Total Dose (mL): Contrast 2: Total Dose (mL): MEASUREMENTS (Male / Female) Normal Values 2D ECHO LV Diastolic Diameter PLAX 3.2 cm 4.2 - 5.9 / 3.9 - 5.3 cm LV Systolic Diameter PLAX 2.4 cm IVS Diastolic Thickness 1.0 cm 0.6 - 1.0 / 0.6 - 0.9 cm LVPW Diastolic Thickness 0.9 cm 0.6 - 1.0 / 0.6 - 0.9 cm LV Relative Wall Thickness 0.6 DOPPLER Mitral E Point Velocity 45.9 cm/s Mitral A Point Velocity 71.3 cm/s Mitral E to A Ratio 0.6 MV Deceleration Time 211.1 ms LV E' Lateral Velocity 5.1 cm/s Mitral E to LV E' Lateral Ratio 9.1 LV E' Septal Velocity 5.8 cm/s Mitral E to LV E' Septal Ratio 7.9 TR Peak Velocity 252.1 cm/s TR Peak Gradient 25.4 mmHg Right Atrial Pressure 8.0 mmHg Pulmonary Artery Systolic Pressu 33.4 mmHg Right Ventricular Systolic Press 33.4 mmHg FINDINGS Left Ventricle Mildly increased left ventricular wall thickness. Normal left ventricular systolic function with no obvious regional wall motion abnormalities. Left ventricular ejection fraction is estimated at 55-60%. Right Ventricle Moderate right ventricular dilatation. Right Atrium Left Atrium Mitral Valve Aortic Valve Tricuspid Valve Tricuspid valve not well visualized. Mild tricuspid regurgitation. Pulmonic Valve Pericardium Prominent epicardial fat. Large left pleural effusion. Small pericardial effusion Aorta CONCLUSIONS Normal LV systolic function Dilated right ventricle Pleural effusion noted Small pericardial effusion Previewed by: Dr. Abhi Lam MD (Electronically Signed) Final Date: 10 May 2023 15:33
[2023-05-10] MEDS: oxyCODONE-APAP 10-325MG 1 EACH TAB PO PRN (17:22)
[2023-05-10] MEDS: SENNOSIDES-DOCUSATE SODIUM 1 EACH TAB PO SCH (17:22)
[2023-05-10] MEDS: NYSTATIN 100,000 UNIT/ML SUSP 500,000 UNIT/5 ML CUP PO SCH ×2 (18:31→23:26)
[2023-05-11] MEDS: oxyCODONE-APAP 10-325MG 1 EACH TAB PO PRN ×4 (03:47→22:25)
[2023-05-11] MEDS: FUROSEMIDE 10 MG/ML 2 ML VIAL IV SCH ×2 (03:48→14:10)
[2023-05-11 04:35] LABS: African American GFR (CKD) >90 (>60 ml/min/1.73 sqM); Anion Gap 9 mmol/L; Blood Urea Nitrogen 32 mg/dL (7-17); Calcium 8.3 mg/dL (8.4-10.2); Carbon Dioxide 26 mmol/L (22-30); Chloride 97 mmol/L (98-107); Glucose 106 mg/dL (74-99); Non-African American GFR(CKD) >90 (>60 ml/min/1.73 sqM); Potassium 3.7 mmol/L (3.5-5.1); Sodium 132 mmol/L (137-145)
[2023-05-11 04:37] LABS: HCT 33.3 % (34.0-46.0); HGB 10.6 gm/dL (11.4-16.0); Hypochromasia Slight; MCH 31.7 pg (25.0-35.0); MCHC 31.7 g/dL (31.0-37.0); MCV 99.9 fL (80.0-100.0); Macrocytosis Slight; Mean Platelet Volume 8.3; Platelet Count 433 k/uL (150-450); RBC 3.34 m/uL (3.80-5.40); RDW 14.9 % (11.5-15.5); WBC 19.7 k/uL (3.8-10.6)
[2023-05-11 04:41] LABS: INR 1.1 (<1.2); Partial Thromboplastin Time 27.6 sec (22.0-30.0); Prothrombin Time 11.2 sec (9.0-12.0)
[2023-05-11 05:00] LABS: Band Neutrophils % 22 %; Lymphocytes # (M) 2.17 k/uL (1.0-4.8); Metamyelocytes # (M) 0.79 k/uL (0); Metamyelocytes % 4 %; Monocytes # (M) 0.59 k/uL (0-1.0); Neutrophils % (M) 59 %; Nucleated Red Blood Cells 0 /100 WBC (0-0); Total Cells Counted 200; Toxic Granulation Present
[2023-05-11] MEDS: HEPARIN SODIUM 1,000 UN/ML (10ML VL) IV PRN (05:27)
[2023-05-11] MEDS: NYSTATIN 100,000 UNIT/ML SUSP 500,000 UNIT/5 ML CUP PO SCH ×4 (08:30→22:33)
[2023-05-11] MEDS: ACETAMINOPHEN TAB 325 MG TAB PO PRN (08:30)
[2023-05-11] MEDS: SENNOSIDES-DOCUSATE SODIUM 1 EACH TAB PO SCH ×2 (08:30→16:34)
[2023-05-11] MEDS: PANTOPRAZOLE 40 MG TABLET PO SCH (08:30)
[2023-05-11] MEDS ORDERED: ASPIRIN 325 MG TAB PO SCH (09:00)
--- NOTE | 2023-05-11 10:55 | P.CNPUL ---
History of Present Illness Consult date: 05/11/23 Reason for consult: dyspnea History of present illness: G A 73-year-old female patient was restless for worsening shortness of breath. The patient has been recently diagnosed having metastatic sarcoma. She initially presented to us with a pathologic fracture of the right upper extremity. At that time, the patient had a soft tissue lesion and the lesion was approximately 16.5 cm in length and the soft tissue was causing displacement of the normal fatty bone marrow. There was also underlying soft tissue mass extending outside the humerus. Satellite lesions were also seen in the musculature and multiple right basilar lymph nodes and bilateral pulmonary nodules also noted and the concern was metastatic disease. At that point, the patient was transferred to [facility] under the patient underwent a right upper extremity surgery with surgical fixation and placement of hardware. 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 Note that the CAT scan of the chest that was done back in March 2023 in our hospital showed no evidence of any pleural effusion and the patient had scattered bilateral pulmonary nodules l argest being 10 mm in size. No reported aspiration. No fever or chills. Repeat chest x-ray shows a loculated left-sided pleural effusion which is moderate in size. For that reason, the patient was admitted to the hospital. She is currently on 2 L of oxygen by nasal cannula. Echo cardiac exam shows a preserved LV function with an ejection fraction of 55-60%. There was small pericardial effusion. Blood work from today shows a white cell count of 19.7, hemoglobin of 10.6 and a platelet count of 433. The patient was placed on Rocephin. Normal coagulation profile. BUN is at 30 with a creatinine of 0.5 and a sodium level is at 132. ProBNP level is at 1340 and the troponins are negative. UA was suggestive of an underlying infection and the patient was started on IV Rocephin. She has a Perez catheter in place at this point in time. Review of Systems CONSTITUTIONAL: No fever,. Complaining of lethargy and loss of appetite HEENT: No recent visual problems or hearing problems. Denied any sore throat. CARDIOVASCULAR: Mentioned in HPI PULMONARY: As mentioned in HPI, the shortness of breath as discussed above GASTROINTESTINAL: No diarrhea, no nausea, no vomiting, no abdominal pain. NEUROLOGICAL: No headaches, no weakness, no numbness. HEMATOLOGICAL: Denies any bleeding or petechiae. GENITOURINARY: Denies any burning micturition, frequency, or urgency. MUSCULOSKELETAL/RHEUMATOLOGICAL: Denies any joint pain, swelling, or any muscle pain. ENDOCRINE: Denies any polyuria or polydipsia. Past Medical History Past Medical History: Cancer (Metastatic sarcoma), COPD, GERD/Reflux, Osteoarthritis (OA) Additional Past Medical History / Comment(s): BLADDER LEAKAGE, CHRONIC NECK PAIN, admitted with urinary catheter that was placed 04/08/23 for urinary retention. Pathologic fracture of the right humerus History of Any Multi-Drug Resistant Organisms: None Reported Past Surgical History: Appendectomy, Cholecystectomy, Hysterectomy Additional Past Surgical History / Comment(s): DENTAL SURGERY ,EXCISION GANGLION CYST -RIGHT HAND, right arm removal of humerus and placement of prosthetic related to bone cancer. Past Anesthesia/Blood Transfusion Reactions: No Reported Reaction Past Psychological History: Anxiety Smoking Status: Former smoker Past Alcohol Use History: Rare Additional Past Alcohol Use History / Comment(s): Pt quit smoking in 2022. Past Drug Use History: None Reported - Past Family History Mother Family Medical History: Cancer Father History Unknown: Yes Medications and Allergies Home Medications Medication Instructions Recorded Confirmed Type Naloxone HCl [Narcan] 4 mg NASAL DIRECTED PRN 04/03/23 05/10/23 History Omeprazole [PriLOSEC] 20 mg PO DAILY@0800 04/03/23 05/10/23 History Acetaminophen [Tylenol] 650 mg PO Q4H PRN 05/10/23 05/10/23 History Calcium Carbonate/Vitamin D3 1 tab PO BID@0800,1700 05/10/23 05/10/23 History [Oyster Shell 250-Vit D3 3.125 Mcg (125 Iu)] Enoxaparin Sodium 40 mg SQ DAILY@0 05/10/23 05/10/23 History Ensure Enlive 120 ml PO BID@0800,1700 05/10/23 05/10/23 History Ergocalciferol (Vitamin D2) 1,250 mcg PO TH@0800 05/10/23 05/10/23 History [Drisdol (50,000 Iu)] Ipratropium-Albuterol Nebulize 3 ml INHALATION RT-Q6H PRN 05/10/23 05/10/23 History [Duoneb 0.5 mg-3 mg/3 ml Soln] Magnesium Hydroxide [Milk of 7,200 mg PO Q48H PRN 05/10/23 05/10/23 History Magnesia Concentrate] Na Phos,M-B/Na Phos,Di-Ba [Fleet 133 ml RECTAL DAILY PRN 05/10/23 05/10/23 History Adult] Nystatin [Nystatin Oral Susp] 500,000 unit PO QID@08,12,17,21 05/10/23 05/10/23 History Sennosides/Docusate Sodium 1 tab PO BID@0800,1700 05/10/23 05/10/23 History [Senna-S 8.6-50 mg Tablet] bisacodyL [Dulcolax] 10 mg RECTAL DAILY PRN 05/10/23 05/10/23 History fentaNYL 25MCG/HR PATCH [Duragesic 1 patch TRANSDERM Q72H 05/10/23 05/10/23 History 25MCG/HR] oxyCODONE-APAP 10-325MG [Percocet 1 tab PO Q6HR PRN 05/10/23 05/10/23 History 10-325 mg] polyethylene glycoL 3350 [Miralax] 17 gm PO BID PRN 05/10/23 05/10/23 History polyethylene glycoL 3350 [Miralax] 17 gm PO DAILY@0800 05/10/23 05/10/23 History Allergies Allergy/AdvReac Type Severity Reaction Status Date / Time codeine Allergy Rash/Hives Verified 05/10/23 12:40 Physical Exam Vitals: Vital Signs Temp Pulse Pulse Resp BP BP Pulse Ox 05/11/23 09:05 93 L 05/11/23 08:00 99.8 F H 86 20 83/58 92 L 05/11/23 03:57 97.9 F 101 H 16 103/66 92 L 05/11/23 02:00 101 H 16 05/11/23 00:00 98.1 F 95 18 101/66 96 05/10/23 20:00 97.9 F 107 H 18 93/45 94 L 05/10/23 18:38 102 H 05/10/23 17:24 98.1 F 102 H 20 108/71 90 L 05/10/23 16:51 98.9 F 114 H 24 95/60 94 L 05/10/23 15:00 120 H 24 109/70 94 L 05/10/23 14:41 122 H 24 97/44 94 L 05/10/23 13:00 118 H 24 94/60 96 05/10/23 12:47 120 H 05/10/23 12:38 118 H 05/10/23 12:03 125 H 24 75/40 96 05/10/23 11:45 180 H 05/10/23 11:38 179 H 24 94/74 95 Intake and Output 05/10/23 05/11/23 05/11/23 22:59 06:59 14:59 Intake Total 92.646 120 Output Total 500 225 Balance -500 -132.354 120 Intake: Intake, IV Titration 92.646 Amount Heparin Sod,Pork in 0.45% 92.646 NaCl 25,000 unit In 0.45 % NaCl 1 250ml.bag @ 12 UNITS/KG/HR 6.532 mls/hr IV .Q24H [facility] Rx#: [id number] Oral 120 Output: Urine 500 225 Other: Voiding Method Indwelling Catheter Indwelling Catheter Weight 54.431 kg 42 kg GENERAL EXAM: Alert, frail 72-year-old female, fairly comfortable in no apparent distress. The patient is currently on 2 L of oxygen by nasal cannula HEAD: Normocephalic. EYES: Normal reaction of pupils, equal size. NOSE: Clear with pink turbinates. THROAT: No erythema or exudates. NECK: No masses, no JVD. CHEST: No chest wall deformity. LUNGS: Equal air entry with no crackles, wheeze, rhonchi or dullness. D iminished breath on the left lung base along with dullness to percussion CVS: S1 and S2 normal with no audible murmur, regular rhythm. ABDOMEN: No hepatosplenomegaly, normal bowel sounds, no guarding or rigidity. SPINE: No scoliosis or deformity SKIN: No rashes CENTRAL NERVOUS SYSTEM: No focal deficits, tone is normal in all 4 extremities. EXTREMITIES: Right upper extremity has a surgical scar extending from her shoulder all the way down to her elbow and the surgical wound site is dry clean and intact.. There is no peripheral edema. No clubbing, no cyanosis. Peripheral pulses are intact. Results - Laboratory Findings CBC and BMP: 05/11/23 03:46 05/11/23 03:46 PT/INR, D-dimer PT 11.2 sec (9.0-12.0) 05/11/23 03:46 INR 1.1 (<1.2) 05/11/23 03:46 D-Dimer 1.54 mg/L FEU (<0.60) H 05/10/23 12:20 Abnormal lab findings: Abnormal Labs 05/10/23 05/10/23 05/10/23 11:57 11:57 11:57 WBC 19.6 H RBC Hgb Hct MCHC 30.8 L Plt Count 467 H Neutrophils # (Manual) 17.40 H Lymphocytes # (Manual) 0.78 L Monocytes # (Manual) 1.18 H Metamyelocytes # (Man) Myelocytes # (Manual) 0.20 H APTT D-Dimer Sodium 133 L Chloride 97 L BUN 32 H Glucose 146 H Calcium Total Protein 5.8 L Albumin 2.7 L Urine Appearance Turbid H Urine Protein 1+ H Urine Ketones Trace H Urine Blood Moderate H Ur Leukocyte Esterase Large H Urine RBC 70 H Urine WBC >182 H Urine WBC Clumps Many H Triple Phos Crystals Rare H Urine Bacteria Moderate H Urine Mucus Many H 05/10/23 05/10/23 05/11/23 12:20 18:49 03:46 WBC 19.7 H RBC 3.34 L Hgb 10.6 L Hct 33.3 L MCHC Plt Count Neutrophils # (Manual) 15.90 H Lymphocytes # (Manual) Monocytes # (Manual) Metamyelocytes # (Man) 0.79 H Myelocytes # (Manual) APTT 31.7 H D-Dimer 1.54 H Sodium Chloride BUN Glucose Calcium Total Protein Albumin Urine Appearance Urine Protein Urine Ketones Urine Blood Ur Leukocyte Esterase Urine RBC Urine WBC Urine WBC Clumps Triple Phos Crystals Urine Bacteria Urine Mucus 05/11/23 03:46 WBC RBC Hgb Hct MCHC Plt Count Neutrophils # (Manual) Lymphocytes # (Manual) Monocytes # (Manual) Metamyelocytes # (Man) Myelocytes # (Manual) APTT D-Dimer Sodium 132 L Chloride 97 L BUN 32 H Glucose 106 H Calcium 8.3 L Total Protein Albumin Urine Appearance Urine Protein Urine Ketones Urine Blood Ur Leukocyte Esterase Urine RBC Urine WBC Urine WBC Clumps Triple Phos Crystals Urine Bacteria Urine Mucus - Diagnostic Findings Chest x-ray: image reviewed CT scan - chest: image reviewed Assessment and Plan Plan: Acute hypoxic respiratory failure and the patient is currently on 2 L of oxygen by nasal cannula New onset located left-sided pleural effusion that is leading to shortness of breath, rule out parapneumonic effusion, rule out malignant pleural effusion Metastatic sarcoma with pulmonary nodules bilateral and pathologic fracture of the right humerus with ill-defined sclerotic bone within the more lucent areas within the humerus. Lesion extends approximately 16.5 cm in length. There is soft tissue within this lesion which displaces the normal fatty bone marrow. Underlying soft tissue mass measuring 5 x 2 x 8 extending outside the humerus. Satellite lesions more proximally with the musculature as well. Multiple right axillary lymph nodes that are prominent as well. The patient underwent a right humeral ORIF with instrumentation hardware placement. This was done at [facility]. Nonspecific pulmonary nodules, could be metastatic 50 year smoking history History of chronic obstructive pulmonary disease, currently inactive and stable History of CVA/TIA History of chronic pain syndrome History of anxiety. Gastric esophageal reflux disease Plan The pleural effusion is loculated We'll obtain pro-calcitonin level We'll obtain a noncontrast CAT scan of the chest We'll consider thoracentesis of the pleural fluid is drainable. Case was discussed with the family the bedside.
--- NOTE | 2023-05-11 11:37 | P.CRDCN ---
History of Present Illness Consult date: 05/11/23 Consult reason: atrial fibrillation History of present illness: The patient is a 73-year-old female who presented to the hospital with worsening shortness of breath. She was found to be in atrial fibrillation with RVR, which is a new finding for the patient. She was also found to be hypoxic and had a large left pleural effusion on chest x-ray. The patient has been started on a Cardizem drip for rate control. She has had borderline low blood pressure readings since arrival. She is also found to have leukocytosis and is positive for urinary tract infection. The patient has a history of metastatic sarcoma sarcoma and recently underwent surgical fixation of her right humerus. DIAGNOSTICS: EKG shows atrial fibrillation/atrial tachycardia Telemetry reveals atrial fibrillation with heart rates in the 90s to low 100s Chest x-ray shows moderate loculated left lower pleural effusion. Scattered bilateral pulmonary nodules also noted. Echocardiogram reveals preserved LV function Lab data: WBC 19.7, hemoglobin 10.6, hematocrit 33.3, platelet 433, sodium 132, potassium 3.7, BUN 32, creatinine 0.56, AST 21, ALT 18, troponin 0.01, BNP 1340, d-dimer 1.54, positive for urinary tract infection REVIEW OF SYSTEMS: No fever or chills. No cough or expectoration. No diaphoresis. Patient denies headache, dizziness, blurred vision, double vision. Patient denies any stomach discomfort. No nausea, vomiting. No hematochezia. No hematemesis. Denies any black stools or blood in his stools. Denies dysuria or hematuria. Positive for muscle weakness or numbness. No chest pain or chest pressure. Positive for shortness of breath with exertion. PHYSICAL EXAMINATION: This is a 73-year-old frail female in no apparent distress at the time of my examination. HEENT: Head is atraumatic, normocephalic. Pupils are equal, round. There is no jugular venous distention. No carotid bruit is heard. CHEST EXAMINATION: Lungs are diminished to auscultation. No chest wall tenderness is noted on palpation or with deep breathing. HEART EXAMINATION: Irregular rate and rhythm. S1, S2 heard. No murmurs, gallops or rub. ABDOMEN: Soft, nontender. Bowel sounds are heard. No organomegaly noted. EXTREMITIES: 2+ peripheral pulses with no evidence of peripheral edema and no calf tenderness noted. NEUROLOGIC EXAMINATION: Patient is awake, alert and oriented x3. FINAL ASSESSMENT AND PLAN: New onset of atrial fibrillation Acute diastolic heart failure exacerbation Shortness of breath, multifactorial Large pleural effusion Urinary tract infection Metastatic sarcoma History of COPD Leukocytosis PLAN: Continue heparin drip Transition to oral anticoagulation once decision is made regarding thoracentesis Start amiodarone for new onset of atrial fibrillation Wean off of Cardizem drip Further recommendations based on clinical course I am dictating on behalf of Dr Franko Rajput's history/physical and assessment/plan. Past Medical History Past Medical History: Cancer (Metastatic sarcoma), COPD, GERD/Reflux, Osteoarthritis (OA) Additional Past Medical History / Comment(s): BLADDER LEAKAGE, CHRONIC NECK PAIN, admitted with urinary catheter that was placed 04/08/23 for urinary reten tion. Pathologic fracture of the right humerus History of Any Multi-Drug Resistant Organisms: None Reported Past Surgical History: Appendectomy, Cholecystectomy, Hysterectomy Additional Past Surgical History / Comment(s): DENTAL SURGERY ,EXCISION GANGLION CYST -RIGHT HAND, right arm removal of humerus and placement of prosthetic related to bone cancer. Past Anesthesia/Blood Transfusion Reactions: No Reported Reaction Past Psychological History: Anxiety Smoking Status: Former smoker Past Alcohol Use History: Rare Additional Past Alcohol Use History / Comment(s): Pt quit smoking in 2022. Past Drug Use History: None Reported - Past Family History Mother Family Medical History: Cancer Father History Unknown: Yes Medications and Allergies Home Medications Medication Instructions Recorded Confirmed Type Naloxone HCl [Narcan] 4 mg NASAL DIRECTED PRN 04/03/23 05/10/23 History Omeprazole [PriLOSEC] 20 mg PO DAILY@0800 04/03/23 05/10/23 History Acetaminophen [Tylenol] 650 mg PO Q4H PRN 05/10/23 05/10/23 History Calcium Carbonate/Vitamin D3 1 tab PO BID@0800,1700 05/10/23 05/10/23 History [Oyster Shell 250-Vit D3 3.125 Mcg (125 Iu)] Enoxaparin Sodium 40 mg SQ DAILY@169905/10/23 05/10/23 History Ensure Enlive 120 ml PO BID@0800,1700 05/10/23 05/10/23 History Ergocalciferol (Vitamin D2) 1,250 mcg PO TH@0800 05/10/23 05/10/23 History [Drisdol (50,000 Iu)] Ipratropium-Albuterol Nebulize 3 ml INHALATION RT-Q6H PRN 05/10/23 05/10/23 History [Duoneb 0.5 mg-3 mg/3 ml Soln] Magnesium Hydroxide [Milk of 7,200 mg PO Q48H PRN 05/10/23 05/10/23 History Magnesia Concentrate] Na Phos,M-B/Na Phos,Di-Ba [Fleet 133 ml RECTAL DAILY PRN 05/10/23 05/10/23 History Adult] Nystatin [Nystatin Oral Susp] 500,000 unit PO QID@08,12,17,05/10/23 05/10/23 History Sennosides/Docusate Sodium 1 tab PO BID@0800,1700 05/10/23 05/10/23 History [Senna-S 8.6-50 mg Tablet] bisacodyL [Dulcolax] 10 mg RECTAL DAILY PRN 05/10/23 05/10/23 History fentaNYL 25MCG/HR PATCH [Duragesic 1 patch TRANSDERM Q72H 05/10/23 05/10/23 History 25MCG/HR] oxyCODONE-APAP 10-325MG [Percocet 1 tab PO Q6HR PRN 05/10/23 05/10/23 History 10-325 mg] polyethylene glycoL 3350 [Miralax] 17 gm PO BID PRN 05/10/23 05/10/23 History polyethylene glycoL 3350 [Miralax] 17 gm PO DAILY@0800 05/10/23 05/10/23 History Allergies Allergy/AdvReac Type Severity Reaction Status Date / Time codeine Allergy Rash/Hives Verified 05/10/23 12:40 Physical Exam Vitals: Vital Signs Temp Pulse Pulse Resp BP BP Pulse Ox 05/11/23 09:05 93 L 05/11/23 08:00 99.8 F H 86 20 83/58 92 L 05/11/23 03:57 97.9 F 101 H 16 103/66 92 L 05/11/23 02:00 101 H 16 05/11/23 00:00 98.1 F 95 18 101/66 96 05/10/23 20:00 97.9 F 107 H 18 93/45 94 L 05/10/23 18:38 102 H 05/10/23 17:24 98.1 F 102 H 20 108/71 90 L 05/10/23 16:51 98.9 F 114 H 24 95/60 94 L 05/10/23 15:00 120 H 24 109/70 94 L 05/10/23 14:41 122 H 24 97/44 94 L 05/10/23 13:00 118 H 24 94/60 96 05/10/23 12:47 120 H 05/10/23 12:38 118 H 05/10/23 12:03 125 H 24 75/40 96 05/10/23 11:45 180 H 05/10/23 11:38 179 H 24 94/74 95 Intake and Output 05/10/23 05/11/23 05/11/23 22:59 06:59 14:59 Intake Total 92.646 120 Output Total 500 225 Balance -500 -132.354 120 Intake: Intake, IV Titration 92.646 Amount Heparin Sod,Pork in 0.45% 92.646 NaCl 25,000 unit In 0.45 % NaCl 1 250ml.bag @ 12 UNITS/KG/HR 6.532 mls/hr IV .Q24H [facility] Rx#: [id number] Oral 120 Output: Urine 500 225 Other: Voiding Method Indwelling Catheter Indwelling Catheter Weight 54.431 kg 42 kg Results 05/11/23 03:46 05/11/23 03:46 Cardiac Enzymes 05/10/23 05/10/23 05/10/23 Range/Units 11:57 11:57 14:44 AST 21 (14-36) U/L Troponin I 0.014 <0.012 (0.000-0.034) ng/mL 05/10/23 Range/Units 18:49 AST (14-36) U/L Troponin I 0.016 (0.000-0.034) ng/mL Coagulation 05/10/23 05/10/23 05/11/23 Range/Units 11:57 18:49 03:46 PT 11.4 11.2 (9.0-12.0) sec APTT 26.7 31.7 H 27.6 (22.0-30.0) sec CBC 05/10/23 05/11/23 Range/Units 11:57 03:46 WBC 19.6 H 19.7 H (3.8-10.6) k/uL RBC 3.89 3.34 L (3.80-5.40) m/uL Hgb 11.7 10.6 L (11.4-16.0) gm/dL Hct 38.0 33.3 L (34.0-46.0) % Plt Count 467 H 433 (150-450) k/uL Comprehensive Metabolic Panel 05/10/23 05/11/23 Range/Units 11:57 03:46 Sodium 133 L 132 L (137-145) mmol/L Potassium 4.2 3.7 (3.5-5.1) mmol/L Chloride 97 L 97 L (98-107) mmol/L Carbon Dioxide 25 26 (22-30) mmol/L BUN 32 H 32 H (7-17) mg/dL Creatinine 0.74 0.56 (0.52-1.04) mg/dL Glucose 146 H 106 H (74-99) mg/dL Calcium 8.6 8.3 L (8.4-10.2) mg/dL AST 21 (14-36) U/L ALT 14 (4-34) U/L Alkaline Phosphatase 98 (38-126) U/L Total Protein 5.8 L (6.3-8.2) g/dL Albumin 2.7 L (3.5-5.0) g/dL Current Medications Generic Name Dose Route Start Last Admin Trade Name Freq PRN Reason Stop Dose Admin Acetaminophen 650 mg 05/10/23 15:04 05/11/23 08:30 Acetaminophen Tab 325 Mg Tab PO 650 mg Q4H PRN Administration Pain Aspirin 325 mg 05/11/23 09:00 05/11/23 08:30 Aspirin 325 Mg Tab PO 325 mg DAILY NORIS Administration Bisacodyl 10 mg 05/10/23 15:04 Bisacodyl 10 Mg Supp RECTAL DAILY PRN Constipation Ergocalciferol 1,250 mcg 05/16/23 08:00 Ergocalciferol 1,250 Mcg (50,000 Iu) Capsule PO TH@0800 [facility] Fentanyl 1 patch 05/12/23 09:00 Fentanyl 25mcg/Hr Patch TRANSDERM Q72H [facility] Protocol Furosemide 20 mg 05/10/23 14:00 05/11/23 03:48 Furosemide 10 Mg/Ml 2 Ml Vial IV 20 mg Q12H NORIS Administration Heparin Sodium (Porcine) 0 unit 05/10/23 13:22 05/11/23 05:27 Heparin Sodium 1,000 Un/Ml (10ml Vl) IV 2,700 unit PER PROTOCOL PRN Administration Low PTT Protocol Diltiazem HCl 125 mg/ Sodium 125 mls @ 5 mls/hr 05/10/23 13:00 05/10/23 12:38 Chloride IV 5 mg/hr .Q24H NORIS 5 mls/hr Administration 5 MG/HR Heparin Sodium/Sodium Chloride 250 mls @ 6.532 mls/hr 05/10/23 13:30 05/11/23 05:26 25,000 unit/ Sodium Chloride IV 15 units/kg/hr .Q24H NORIS 8.165 mls/hr Titration Protocol 12 UNITS/KG/HR Piperacillin Sod/Tazobactam 100 mls @ 25 mls/hr 05/11/23 16:00 Sod 3.375 gm/ Sodium Chloride IVPB Q8HR [facility] Protocol Nystatin 500,000 unit 05/10/23 18:15 05/11/23 08:30 Nystatin 100,000 Unit/Ml Susp 500,000 Unit/5 Ml Cup PO Not Given QID [facility] Protocol Oxycodone/Acetaminophen 1 each 05/10/23 15:04 05/11/23 10:09 Oxycodone-Apap 10-325mg 1 Each Tab PO 1 each Q6HR PRN Administration Pain Pantoprazole Sodium 40 mg 05/11/23 08:00 05/11/23 08:30 Pantoprazole 40 Mg Tablet PO 40 mg DAILY@0800 [facility] Administration Polyethylene Glycol 17 gm 05/10/23 15:04 Polyethylene Glycol 3350 17 Gm Powd.Pack PO BID PRN Constipation Senna/Docusate Sodium 1 each 05/10/23 17:00 05/11/23 08:30 Sennosides-Docusate Sodium 1 Each Tab PO 1 each BID@0800,1700 NORIS Administration Intake and Output 05/10/23 05/11/23 05/11/23 22:59 06:59 14:59 Intake Total 92.646 120 Output Total 500 225 Balance -500 -132.354 120 Intake: Intake, IV Titration 92.646 Amount Heparin Sod,Pork in 0.45% 92.646 NaCl 25,000 unit In 0.45 % NaCl 1 250ml.bag @ 12 UNITS/KG/HR 6.532 mls/hr IV .Q24H [facility] Rx#: [id number] Oral 120 Output: Urine 500 225 Other: Voiding Method Indwelling Catheter Indwelling Catheter Weight 54.431 kg 42 kg 05/11/23 03:46 05/11/23 03:46
[2023-05-11] MEDS: AMIODARONE 200 MG TAB PO SCH ×2 (12:36→22:26)
--- NOTE | 2023-05-11 12:45 | CT ---
EXAMINATION TYPE: CT chest wo con DATE OF EXAM: 05/11/2023 COMPARISON: 04/05/2023 HISTORY: Pleural effusion. CT DLP: 290.[address] of the chest was performed with lung and mediastinal window settings submitted. The la ck of contrast limits evaluation of the vascular, mediastinal and parenchymal structures including th e upper abdomen. LUNGS: There is interval development of a large left-sided pleural effusion A small amount of aerated lung left upper lobe. Associated atelectatic changes are seen. A couple of nodules are seen within t he aerated portion of the left lung. There are numerous scattered pulmonary nodules within the right lung as well as loculated pleural effusion or mass is at the right lung base. MEDIASTINUM/MATEUS: Thoracic aorta is of normal caliber with limited evaluation given lack of contrast . The heart is not enlarged. No evidence for mediastinal mass. No lymph nodes greater than 1cm. UPPER ABDOMEN: Bilateral nephrolithiasis. OTHER: There is evidence of right axillary adenopathy with multiple enlarged lymph nodes measuring up to 1.9 cm. There is been resection previously noted right proximal humeral mass. There is IMPRESSION: 1. Interval development of a large left-sided pleural effusion with associated compressive atelectas is. Small amount of aerated lung left upper lobe which contains several nodules. 2. Multiple scattered pulmonary nodules throughout the right lung with lobulated density at the right lower lobe posteriorly and adjacent to the right heart border. 3. Right axillary adenopathy.
--- NOTE | 2023-05-11 14:39 | P.PN ---
Subjective Progress Note Date: 05/11/23 patient is a 73-year-old lady with past medical significant for COPD, recent humerus surgery [facility] for shortness of breath. Patient has been having shortness of breath for the last few days. Complaining of chest pressure as well. Denies any fever. no cough. complaining of l ethargy and weakness. patient was found to be in a. fib with rvr in the er Initial lab work done showed WBC 9.6, hemoglobin 11.7, platelet count 467, sodium 133, potassium 4.2, BUN 32, urine suspicious for UTI Chest x-ray done showed moderate opacification of left lower lobe with loculated pleural effusion Patient was admitted to medicine service 05/11. Patient seen and examined. Lab work done this morning showed WBC 9.7, hemoglobin 10.6, sodium 132, potassium 3.7, BUN 32, creatinine 0.56, Patient states her breathing is much better compared to yesterday REVIEW OF SYSTEMS: CONSTITUTIONAL: No fever, no malaise,. CARDIOVASCULAR: No chest pain, no palpitations, no syncope. PULMONARY: As mentioned above GASTROINTESTINAL: No diarrhea, no nausea, no vomiting, no abdominal pain. NEUROLOGICAL: No headaches, no weakness, PHYSICAL EXAMINATION: GENERAL: The patient is alert and oriented x3, not in any acute distress. Chronically sick looking HEENT: Pupils are round and equally reacting to light. EOMI. No scleral icterus. No conjunctival pallor. Normocephalic, atraumatic. No pharyngeal erythema. No thyromegaly. CARDIOVASCULAR: S1 and S2 present. No murmurs, rubs, or gallops. PULMONARY: Coarse breath some bilaterally, ABDOMEN: Soft, nontender, nondistended, normoactive bowel sounds. No palpable organomegaly. MUSCULOSKELETAL: Right upper extremity surgical incisions EXTREMITIES: No cyanosis, clubbing, or pedal edema. NEUROLOGICAL: Gross neurological examination did not reveal any focal deficits. SKIN: No rashes. Assessment and plan A. 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 History of pathologic fracture of right humerus Right axillary lymphadenopathy Monitor vital signs Monitor CBC Monitor CMP Continue telemetry monitoring Start amiodarone Continue IV Cardizem, continue to wean Continue heparin drip Antibiotics switched to IV Zosyn Follow-up up in pulmonary recommendations Follow-up on cardiology recommendations Consult hematology oncology Objective - Vital Signs Vital signs: Vital Signs Temp 99.8 F H 05/11/23 08:00 Pulse 86 05/11/23 08:00 Resp 20 05/11/23 08:00 BP 83/58 05/11/23 08:00 Pulse Ox 93 L 05/11/23 09:05 FiO2 Intake & Output 05/10/23 05/11/23 05/11/23 18:59 06:59 18:59 Intake Total 92.646 120 Output Total 500 225 Balance -500 -132.354 120 Weight 54.431 kg 42 kg Intake: Intake, IV Titration 92.646 Amount Heparin Sod,Pork in 0.45% 92.646 NaCl 25,000 unit In 0.45 % NaCl 1 250ml.bag @ 12 UNITS/KG/HR 6.532 mls/hr IV .Q24H [facility] Rx#: [id number] Oral 120 Output: Urine 500 225 Other: Voiding Method Indwelling Catheter Indwelling Catheter - Labs CBC & Chem 7: 05/11/23 03:46 05/11/23 03:46 Labs: Abnormal Lab Results - Last 24 Hours (Table) 05/10/23 05/10/23 05/10/23 Range/Units 11:57 11:57 11:57 WBC 19.6 H (3.8-10.6) k/uL RBC (3.80-5.40) m/uL Hgb (11.4-16.0) gm/dL Hct (34.0-46.0) % MCHC 30.8 L (31.0-37.0) g/dL Plt Count 467 H (150-450) k/uL Neutrophils # (Manual) 17.40 H (1.3-7.7) k/uL Lymphocytes # (Manual) 0.78 L (1.0-4.8) k/uL Monocytes # (Manual) 1.18 H (0-1.0) k/uL Metamyelocytes # (Man) (0) k/uL Myelocytes # (Manual) 0.20 H (0) k/uL APTT (22.0-30.0) sec D-Dimer (<0.60) mg/L FEU Sodium 133 L (137-145) mmol/L Chloride 97 L (98-107) mmol/L BUN 32 H (7-17) mg/dL Glucose 146 H (74-99) mg/dL Calcium (8.4-10.2) mg/dL Total Protein 5.8 L (6.3-8.2) g/dL Albumin 2.7 L (3.5-5.0) g/dL Urine Appearance Turbid H (Clear) Urine Protein 1+ H (Negative) Urine Ketones Trace H (Negative) Urine Blood Moderate H (Negative) Ur Leukocyte Esterase Large H (Negative) Urine RBC 70 H (0-5) /hpf Urine WBC >182 H (0-5) /hpf Urine WBC Clumps Many H (None) /hpf Triple Phos Crystals Rare H (None) /hpf Urine Bacteria Moderate H (None) /hpf Urine Mucus Many H (None) /hpf 05/10/23 05/10/23 05/11/23 Range/Units 12:20 18:49 03:46 WBC 19.7 H (3.8-10.6) k/uL RBC 3.34 L (3.80-5.40) m/uL Hgb 10.6 L (11.4-16.0) gm/dL Hct 33.3 L (34.0-46.0) % MCHC (31.0-37.0) g/dL Plt Count (150-450) k/uL Neutrophils # (Manual) 15.90 H (1.3-7.7) k/uL Lymphocytes # (Manual) (1.0-4.8) k/uL Monocytes # (Manual) (0-1.0) k/uL Metamyelocytes # (Man) 0.79 H (0) k/uL Myelocytes # (Manual) (0) k/uL APTT 31.7 H (22.0-30.0) sec D-Dimer 1.54 H (<0.60) mg/L FEU Sodium (137-145) mmol/L Chloride (98-107) mmol/L BUN (7-17) mg/dL Glucose (74-99) mg/dL Calcium (8.4-10.2) mg/dL Total Protein (6.3-8.2) g/dL Albumin (3.5-5.0) g/dL Urine Appearance (Clear) Urine Protein (Negative) Urine Ketones (Negative) Urine Blood (Negative) Ur Leukocyte Esterase (Negative) Urine RBC (0-5) /hpf Urine WBC (0-5) /hpf Urine WBC Clumps (None) /hpf Triple Phos Crystals (None) /hpf Urine Bacteria (None) /hpf Urine Mucus (None) /hpf 05/11/23 Range/Units 03:46 WBC (3.8-10.6) k/uL RBC (3.80-5.40) m/uL Hgb (11.4-16.0) gm/dL Hct (34.0-46.0) % MCHC (31.0-37.0) g/dL Plt Count (150-450) k/uL Neutrophils # (Manual) (1.3-7.7) k/uL Lymphocytes # (Manual) (1.0-4.8) k/uL Monocytes # (Manual) (0-1.0) k/uL Metamyelocytes # (Man) (0) k/uL Myelocytes # (Manual) (0) k/uL APTT (22.0-30.0) sec D-Dimer (<0.60) mg/L FEU Sodium 132 L (137-145) mmol/L Chloride 97 L (98-107) mmol/L BUN 32 H (7-17) mg/dL Glucose 106 H (74-99) mg/dL Calcium 8.3 L (8.4-10.2) mg/dL Total Protein (6.3-8.2) g/dL Albumin (3.5-5.0) g/dL Urine Appearance (Clear) Urine Protein (Negative) Urine Ketones (Negative) Urine Blood (Negative) Ur Leukocyte Esterase (Negative) Urine RBC (0-5) /hpf Urine WBC (0-5) /hpf Urine WBC Clumps (None) /hpf Triple Phos Crystals (None) /hpf Urine Bacteria (None) /hpf Urine Mucus (None) /hpf
[2023-05-11] MEDS: PIPERACILLIN-TAZOBACTAM 3.375 GM in SODIUM CHLORIDE 0.9% 100 ML IVPB SCH ×2 (16:34→23:38)
[2023-05-11] MEDS: DILTIAZEM 125 MG in SODIUM CHLORIDE 0.9% 100 ML IV SCH (17:58)
[2023-05-11] MEDS: HEPARIN SOD,PORK IN 0.45% NACL 25,000 UNIT in 0.45% NACL 1 250ML.BAG IV SCH (17:58)
--- NOTE | 2023-05-11 21:14 | P.CONS ---
History of Present Illness - Reason for Consult Consult date: 05/11/23 PKTY, sarcoma Requesting physician: Naif Lovell - Chief Complaint SOB/PENG - History of Present Illness Patient's very pleasant 73-year-old female with a history of multiple co morbidities including recently found right upper extremity sarcoma, imaging consistent with metastatic disease, who is here for increasing shortness of breath found to be in A. fib with RVR, have a new left pleural effusion as well as have acute diastolic heart failure exacerbation and a UTI. She was recently hospitalized for right upper extremity pain and syncope, found to have a mass in her humerus, with multiple lung nodules suspicious for possible metastatic disease. She was transferred to [facility] for Ortho oncology evaluation where she underwent surgery. Here now for increased shortness of breath due to above. Cardiology on board. We're consulted due to patient's known malignancy history. She continues to have Steri-Strips over her slowly healing surgical site. I suspect her surgery was very recent although she cannot recall the exact date. Oncologic History: Hospitalized mid-late 03/2023 for RUE pain and syncope, found to have soft tissue mass concerning for malignancy and transferred to [facility] for ortho onc evaluation, where she underwent surgery. Patient is a 72-year-old female with a significant history of history of chronic pain, COPD, CVA/TIA, and nicotine dependence. She reports a 30-40 yr pack hx, as smoking has varied over the years. We were consulted for concern of suspicious soft tissue mass and pathological fracture of right humerus. Patient's family states that the patient was seen by orthopedics after having right upper extremity pain, with unknown injury to arm. She was noted to have a fracture of the right humerus and soft tissue lesion. Orthopedics was treating her acutely with plans to referral to oncology. Family states patient was at the kitchen table when she became disoriented and had a syncopal episode. At which time she presented to the ER for further evaluation. Family reports over the last couple months patient's had decreased appetite and increasing weakness. states patient has lost approximately 30 pounds over the last 2 months. Patient had mammogram approximately 6 months ago which was normal per patient's . Unknown last colonoscopy. Son states the patient has chronic neck pain and has stimulator in place. He is concerned that she is taking too much of her pain medications and is running out early which may have been contributing to her confusion and increased weakness. Upon presentation to the ER right humerus x- ray and CT revealed pathological fracture with comminution and displacement of the fragments. Additional cortical buckling of the right humerus surgical neck also suspicious for fracture. Some ill-defined sclerosis is seen within the soft tissue lesion that extends up to 16.5 cm. Soft tissue component measuring 5x2.7x8.1 cm, extending outside the osseous structures and there are suspected intramuscular deposits and lymphadenopathy suspicious for metastatic disease. Hemoglobin 12.3, WBC 12.8, platelets 452,000. ALP 69 Humerus mass/pathological fracture: -Right humerus x-ray and CT revealed pathological fracture with comminution and displacement of the fragments. Additional cortical buckling of the right humerus surgical neck also suspicious for fracture. Some ill-defined sclerosis is seen within the soft tissue lesion that extends up to 16.5 cm. Soft tissue component measuring 5x2.7x8.1 cm, extending outside the osseous structures and there are suspected intramuscular deposits and lymphadenopathy suspicious for metastatic disease -CT CAP revealed right proximal humerus obstructive mass with superimposed pathological fracture and extension outside the bone itself into the adjacent soft tissues with suspected at least 2 small satellite lesions in the surrounding muscles. Scattered pulmonary nodules and enlarged right axillary lymph nodes are suspicious for metastatic disease. No evidence for metastatic disease within the abdomen or pelvis. -No evidence of chest/abdomen primary site on CT CAP. -NM bone scan obtained, limited study due to pt anxiety. Report states proximal right humerus there is increased radiotracer accumulation. No other bone lesions seen other then the Rt humerus, however study was significantly limited -Discussed case with Surgical PA. No lymph node biopsy is planned, may be reactive and the mass on the bone is very large, easy target for biopsy. -Ortho consulted, recommending evaluation by ortho oncology. Case discussed with Rad Onc who helped in communicating with Ortho Onc Dr. Radha Salazar. Opinion is that this rt humerus lesion may be a sarcoma. Dr. Salazar is willing to have pt transfer for further eval, biopsy/surgical repair. Working this am to communicate with Attending. -Pain not being controlled on current regimen, will adjust pain medications and plan to transition/convert to long acting pain medication. Will continue to monitor. -Pt updated on plan of care and is agreeable Past Medical History Past Medical History: Cancer (Metastatic sarcoma), COPD, GERD/Reflux, Osteoarthritis (OA) Additional Past Medical History / Comment(s): BLADDER LEAKAGE, CHRONIC NECK PAIN, admitted with urinary catheter that was placed 04/08/23 for urinary retention. Pathologic fracture of the right humerus History of Any Multi-Drug Resistant Organisms: None Reported Past Surgical History: Appendectomy, Cholecystectomy, Hysterectomy Additional Past Surgical History / Comment(s): DENTAL SURGERY ,EXCISION GANGLION CYST -RIGHT HAND, right arm removal of humerus and placement of prosthetic related to bone cancer. Past Anesthesia/Blood Transfusion Reactions: No Reported Reaction Past Psychological History: Anxiety Smoking Status: Former smoker Past Alcohol Use History: Rare Additional Past Alcohol Use History / Comment(s): Pt quit smoking in 2022. Past Drug Use History: None Reported - Past Family History Mother Family Medical History: Cancer Father History Unknown: Yes Medications and Allergies Home Medications Medication Instructions Recorded Confirmed Type Naloxone HCl [Narcan] 4 mg NASAL DIRECTED PRN 04/03/23 05/10/23 History Omeprazole [PriLOSEC] 20 mg PO DAILY@0800 04/03/23 05/10/23 History Acetaminophen [Tylenol] 650 mg PO Q4H PRN 05/10/23 05/10/23 History Calcium Carbonate/Vitamin D3 1 tab PO BID@0800,1700 05/10/23 05/10/23 History [Oyster Shell 250-Vit D3 3.125 Mcg (125 Iu)] Enoxaparin Sodium 40 mg SQ DAILY@1700 05/10/23 05/10/23 History Ensure Enlive 120 ml PO BID@0800,1700 05/10/23 05/10/23 History Ergocalciferol (Vitamin D2) 1,250 mcg PO TH@0800 05/10/23 05/10/23 History [Drisdol (50,000 Iu)] Ipratropium-Albuterol Nebulize 3 ml INHALATION RT-Q6H PRN 05/10/23 05/10/23 History [Duoneb 0.5 mg-3 mg/3 ml Soln] Magnesium Hydroxide [Milk of 7,200 mg PO Q48H PRN 05/10/23 05/10/23 History Magnesia Concentrate] Na Phos,M-B/Na Phos,Di-Ba [Fleet 133 ml RECTAL DAILY PRN 05/10/23 05/10/23 Histo ry Adult] Nystatin [Nystatin Oral Susp] 500,000 unit PO QID@08,12,17,21 05/10/23 05/10/23 History Sennosides/Docusate Sodium 1 tab PO BID@0800,1700 05/10/23 05/10/23 History [Senna-S 8.6-50 mg Tablet] bisacodyL [Dulcolax] 10 mg RECTAL DAILY PRN 05/10/23 05/10/23 History fentaNYL 25MCG/HR PATCH [Duragesic 1 patch TRANSDERM Q72H 05/10/23 05/10/23 History 25MCG/HR] oxyCODONE-APAP 10-325MG [Percocet 1 tab PO Q6HR PRN 05/10/23 05/10/23 History 10-325 mg] polyethylene glycoL 3350 [Miralax] 17 gm PO BID PRN 05/10/23 05/10/23 History polyethylene glycoL 3350 [Miralax] 17 gm PO DAILY@0800 05/10/23 05/10/23 History Allergies Allergy/AdvReac Type Severity Reaction Status Date / Time codeine Allergy Rash/Hives Verified 05/10/23 12:40 Physical Exam Vitals: Vital Signs Temp Pulse Resp BP Pulse Ox 05/11/23 16:00 97 F L 105 H 20 115/73 93 L 05/11/23 12:00 99.5 F 101 H 22 99/69 93 L 05/11/23 09:05 93 L 05/11/23 08:00 99.8 F H 86 20 83/58 92 L 05/11/23 03:57 97.9 F 101 H 16 103/66 92 L 05/11/23 02:00 101 H 16 05/11/23 00:00 98.1 F 95 18 101/66 96 05/10/23 20:00 97.9 F 107 H 18 93/45 94 L Intake and Output 05/11/23 05/11/23 05/11/23 06:59 14:59 22:59 Intake Total 92.646 240 451.04 Output Total 225 100 250 Balance -132.354 140 201.04 Intake: Intake, IV Titration 92.646 91.04 Amount Heparin Sod,Pork in 0.45% 92.646 91.04 NaCl 25,000 unit In 0.45 % NaCl 1 250ml.bag @ 12 UNITS/KG/HR 6.532 mls/hr IV .Q24H [facility] Rx#: [id number] Oral 240 360 Output: Urine 225 100 250 Other: Voiding Method Indwelling Catheter Indwelling Catheter Weight 42 kg 42 kg Patient in no acute distress. She does have Steri-Strips along very large surgical wound that does not appear to have any signs of infection long the right shoulder down her arm. She is alert and oriented 3 however cannot recall the details of the last few weeks, specifically when she had her surgery, etc. No lower extremity edema. No jaundice. No respiratory distress. Results CBC & Chem 7: 05/11/23 03:46 05/11/23 03:46 Labs: Abnormal Lab Results - Last 24 Hours (Table) 05/11/23 05/11/23 05/11/23 Range/Units 03:46 03:46 12:38 WBC 19.7 H (3.8-10.6) k/uL RBC 3.34 L (3.80-5.40) m/uL Hgb 10.6 L (11.4-16.0) gm/dL Hct 33.3 L (34.0-46.0) % Neutrophils # (Manual) 15.90 H (1.3-7.7) k/uL Metamyelocytes # (Man) 0.79 H (0) k/uL APTT 30.2 H (22.0-30.0) sec Sodium 132 L (137-145) mmol/L Chloride 97 L (98-107) mmol/L BUN 32 H (7-17) mg/dL Glucose 106 H (74-99) mg/dL Calcium 8.3 L (8.4-10.2) mg/dL Chest x-ray: report reviewed CT scan - chest: report reviewed Assessment and Plan Assessment: 1. Sarcoma of the right upper extremity 2. New onset A. fib with RVR 3. Anemia, normocytic 4. Acute exacerbation of diastolic heart failure 5. Right-sided pleural effusion 6. Multiple lung nodules seen on CT of the chest Plan: Mrs. Carrasco is a very pleasant 73-year-old female who is here for worsening shortness of breath, found to be in A. fib with RVR as well as acute diastolic heart failure. She was also found to have possibly loculated right pleural effusion. She was recently found to have sarcoma and underwent surgery by orthopedic oncology at [facility] of the right humerus, Steri-Strips still in place with no signs of infection. -We'll need to obtain records from [facility] -No objections to anticoagulation for cardiac disease -If thoracentesis possible, agree with this, and please send sample for cytology -Unclear etiology of her bilateral lung nodules seen on CT -We'll need to follow-up in clinic to discuss systemic treatment for her sarcoma once her surgical wound heals Discussed with patient she is agreeable to the plan. All of her questions were answered.
[2023-05-12] MEDS ORDERED: VANCOMYCIN IV PER PHARMACY 1 EACH MISC MISCELLANE PRN (01:56)
[2023-05-12] MEDS: HEPARIN SOD,PORK IN 0.45% NACL 25,000 UNIT in 0.45% NACL 1 250ML.BAG IV SCH (01:59)
[2023-05-12] MEDS: HEPARIN SODIUM 1,000 UN/ML (10ML VL) IV PRN (02:01)
[2023-05-12] MEDS ORDERED: VANCOMYCIN 1,000 MG in SODIUM CHLORIDE 0.9% 250 ML IVPB ONE (03:00)
[2023-05-12] MEDS: FUROSEMIDE 10 MG/ML 2 ML VIAL IV SCH ×2 (03:04→13:00)
[2023-05-12] MEDS: oxyCODONE-APAP 10-325MG 1 EACH TAB PO PRN ×4 (03:29→21:25)
[2023-05-12] MEDS: ACETAMINOPHEN TAB 325 MG TAB PO PRN ×3 (08:31→19:58)
[2023-05-12] MEDS: PIPERACILLIN-TAZOBACTAM 3.375 GM in SODIUM CHLORIDE 0.9% 100 ML IVPB SCH ×2 (08:31→15:26)
[2023-05-12] MEDS: NYSTATIN 100,000 UNIT/ML SUSP 500,000 UNIT/5 ML CUP PO SCH ×5 (08:32→21:24)
[2023-05-12] MEDS: AMIODARONE 200 MG TAB PO SCH ×3 (08:32→21:25)
[2023-05-12] MEDS: PANTOPRAZOLE 40 MG TABLET PO SCH (08:32)
[2023-05-12] MEDS: SENNOSIDES-DOCUSATE SODIUM 1 EACH TAB PO SCH ×2 (08:32→15:27)
[2023-05-12] MEDS: DILTIAZEM 125 MG in SODIUM CHLORIDE 0.9% 100 ML IV SCH ×3 (08:38→12:52)
--- NOTE | 2023-05-12 11:30 | P.PN ---
Subjective Progress Note Date: 05/12/23 This is Mateus Durant NP, I'm dictating on behalf of Dr. Rajput's H&P and A&P. Patient was interviewed and examined. Patient is a pleasant 73-year-old female who presented to hospital with atrial fibrillation, congestive heart failure, and a urinary tract infection. Patient has a loculated effusion of the left lung that could possibly be metastases cancer. Patient is under pulmonology care, who is requesting interventional radiology to attempt to drain the lung. Patient continues to look uncomfor table, and continues to report shortness of breath. Her heart rate remains elevated. GENERAL: Well-appearing, well-nourished and in no acute distress. NECK: Supple without JVD or thyromegaly. LUNGS: Breath sounds demonstrate expiratory wheezing to auscultation bilaterally. Respiration equal, labored. No rales or rhonchi. HEART: Irregular rate and rhythm without murmurs, rubs or gallops. S1 and S2 heard. EXTREMITIES: Normal range of motion, no edema. No clubbing or cyanosis. Peripheral pulses intact and strong. VITALS: Temp 97.2, pulse 110, respirations 22, blood pressure 149/82, O2 saturation 95% on 2 L TELEMETRY: Atrial fibrillation with rapid ventricular response LABS: Labs reviewed, no new labs since 05/11/2023 IMPRESSION: 1. New onset of atrial fibrillation 2. Acute diastolic heart failure exacerbation 3. Shortness, multifactorial 4. Large pleural effusion 5. Urinary tract infection 6. Metastatic sarcoma 7. History of COPD 8. Leukocytosis PLAN: Increase amiodarone to 3 times a day. Continue Cardizem at 5 mg an hour. Patient may be transitioned to oral anticoagulation after IR performs a thoracentesis. Further recommendations based on patient's clinical course. Objective - Vital Signs Vital signs: Vital Signs Temp 97.1 F L 05/12/23 11:07 Pulse 109 H 05/12/23 11:07 Resp 22 05/12/23 11:07 BP 125/74 05/12/23 11:07 Pulse Ox 95 05/12/23 11:07 FiO2 Intake & Output 05/11/23 05/12/23 05/12/23 18:59 06:59 18:59 Intake Total 816.04 66.314 190 Output Total 350 450 Balance 466.04 -383.686 190 Weight 42 kg 45.5 kg Intake: IV 10 Invasive Line 1 10 Intake, IV Titration 216.04 66.314 Amount Diltiazem 125 mg In 125 Sodium Chloride 0.9% 100 ml @ 5 MG/HR 5 mls/hr IV .Q24H [facility] Rx#:[id number] Heparin Sod,Pork in 0.45% 91.04 66.314 NaCl 25,000 unit In 0.45 % NaCl 1 250ml.bag @ 12 UNITS/KG/HR 6.532 mls/hr IV .Q24H [facility] Rx#: [id number] Oral 600 180 Output: Urine 350 450 Other: Voiding Method Indwelling Catheter Indwelling Catheter Indwelling Catheter # Bowel Movements 1 - Labs CBC & Chem 7: 05/11/23 03:46 05/11/23 03:46 Labs: Abnormal Lab Results - Last 24 Hours (Table) 05/11/23 05/12/23 Range/Units 12:38 00:19 APTT 30.2 H 31.9 H (22.0-30.0) sec Microbiology - Last 24 Hours (Table) 05/10/23 11:57 Urine Culture - Preliminary Urine,Voided Gram Neg Bacilli 05/10/23 13:45 Blood Culture Gram Stain - Preliminary Blood 05/10/23 13:50 Blood Culture - Preliminary Blood
--- NOTE | 2023-05-12 12:25 | P.PN ---
Subjective Progress Note Date: 05/12/23 A 73-year-old female patient was restless for worsening shortness of breath. The patient has been recently diagnosed having metastatic sarcoma. She initially presented to us with a pathologic fracture of the right upper extremity. At that time, the patient had a soft tissue lesion and the lesion was approximately 16.5 cm in length and the soft tissue was causing displacement of the normal fatty bone marrow. There was also underlying soft tissue mass extending outside the humerus. Satellite lesions were also seen in the musculature and multiple right basilar lymph nodes and bilateral pulmonary nodules also noted and the concern was metastatic disease. At that point, the patient was transferred to [facility] under the patient underwent a right upper extremity surgery with surgical fixation and placement of hardware. 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 Note that the CAT scan of the chest that was done back in March 2023 in our hospital showed no evidence of any pleural effusion and the patient had scattered bilateral pulmonary nodules largest being 10 mm in size. No reported aspiration. No fever or chills. Repeat chest x-ray shows a loculated left-sided pleural effusion which is moderate in size. For that reason, the patient was admitted to the hospital. She is currently on 2 L of oxygen by nasal cannula. Echo cardiac exam shows a preserved LV function with an ejection fraction of 55-60%. There was small pericardial effusion. Blood work from today shows a white cell count of 19.7, hemoglobin of 10.6 and a platelet count of 433. The patient was placed on Rocephin. Normal coagulation profile. BUN is at 30 with a creatinine of 0.5 and a sodium level is at 132. ProBNP level is at 1340 and the troponins are negative. UA was suggestive of an underlying infection and the patient was started on IV Rocephin. She has a Perez catheter in place at this point in time. On today's evaluation of 05/12/2023, the patient is stable at 2 L of oxygen by nasal cannula. I reviewed the CAT scan of the chest and the patient has a moderate-sized left-sided pleural effusion along with compressive atelectasis. The fluid somewhat loculated and there is areas of atelectatic lung and loculation and adhesion formation possibly some underlying lung bases also. In fact, the patient has multiple scattered pulmonary nodules throughout the right lung with elevated density at the right lower lobe posteriorly and along the right heart border. The echoes of 19 with a hemoglobin of 10.0. The patient remains on Zosyn and vancomycin. The patient remains on IV heparin. She did have atrial fibrillation the patient continues to be in A. fib. She was on a Cardizem drip at 5 mg an hour and Lasix 20 mg IV every 12 hours. Objective - Vital Signs Vital signs: Vital Signs Temp 97.5 F L 05/11/23 23:47 Pulse 107 H 05/12/23 02:55 Resp 24 05/12/23 02:55 BP 130/75 05/12/23 02:55 Pulse Ox 92 L 05/12/23 02:55 FiO2 Intake & Output 05/11/23 05/12/23 05/12/23 18:59 06:59 18:59 Intake Total 691.04 66.314 180 Output Total 350 450 Balance 341.04 -383.686 180 Weight 42 kg 45.5 kg Intake: Intake, IV Titration 91.04 66.314 Amount Heparin Sod,Pork in 0.45% 91.04 66.314 NaCl 25,000 unit In 0.45 % NaCl 1 250ml.bag @ 12 UNITS/KG/HR 6.532 mls/hr IV .Q24H [facility] Rx#: [id number] Oral 600 180 Output: Urine 350 450 Other: Voiding Method Indwelling Catheter Indwelling Catheter # Bowel Movements 1 - Exam GENERAL EXAM: Alert, frail 72-year-old female, fairly comfortable in no apparent distress. The patient is currently on 2 L of oxygen by nasal cannula HEAD: Normocephalic. EYES: Normal reaction of pupils, equal size. NOSE: Clear with pink turbinates. THROAT: No erythema or exudates. NECK: No masses, no JVD. CHEST: No chest wall deformity. LUNGS: Equal air entry with no crackles, wheeze, rhonchi or dullness. Diminished breath on the left lung base along with dullness to percussion CVS: S1 and S2 normal with no audible murmur, regular rhythm. ABDOMEN: No hepatosplenomegaly, normal bowel sounds, no guarding or rigidity. SPINE: No scoliosis or deformity SKIN: No rashes CENTRAL NERVOUS SYSTEM: No focal deficits, tone is normal in all 4 extremities. EXTREMITIES: Right upper extremity has a surgical scar extending from her shoulder all the way down to her elbow and the surgical wound site is dry clean and intact.. There is no peripheral edema. No clubbing, no cyanosis. Peripheral pulses are intact. - Labs CBC & Chem 7: 05/11/23 03:46 05/11/23 03:46 Labs: Abnormal Lab Results - Last 24 Hours (Table) 05/11/23 05/12/23 Range/Units 12:38 00:19 APTT 30.2 H 31.9 H (22.0-30.0) sec Microbiology - Last 24 Hours (Table) 05/10/23 13:45 Blood Culture Gram Stain - Preliminary Blood 05/10/23 13:50 Blood Culture - Preliminary Blood Assessment and Plan Plan: Acute hypoxic respiratory failure and the patient is currently on 2 L of oxygen by nasal cannula New onset located left-sided pleural effusion that is leading to shortness of b reath, rule out parapneumonic effusion, rule out malignant pleural effusion Metastatic sarcoma with pulmonary nodules bilateral and pathologic fracture of the right humerus with ill-defined sclerotic bone within the more lucent areas within the humerus. Lesion extends approximately 16.5 cm in length. There is soft tissue within this lesion which displaces the normal fatty bone marrow. Underlying soft tissue mass measuring 5 x 2 x 8 extending outside the humerus. Satellite lesions more proximally with the musculature as well. Multiple right axillary lymph nodes that are prominent as well. The patient underwent a right humeral ORIF with instrumentation hardware placement. This was done at [facility]. Nonspecific pulmonary nodules, could be metastatic New-onset atrial fibrillation currently on IV heparin and then Cardizem drip 50 year smoking history History of chronic obstructive pulmonary disease, currently inactive and stable History of CVA/TIA History of chronic pain syndrome History of anxiety. Gastric esophageal reflux disease Plan Due to the complexity of left-sided pleural effusion, recommended ultrasound- guided IR guided thoracentesis Continue IV heparin Continue Cardizem and measures of atrial fibrillation per cardiology The pleural effusion is loculated and there is significant amount of atelectatic changes in the left lung base along with scattered bilateral pulmonary masses consistent with metastatic disease Continue IV heparin Continue IV Lasix Case was discussed with the family the bedside. Consultation was placed for interventional radiology for thoracentesis in a.m.
--- NOTE | 2023-05-12 13:48 | P.PN ---
Subjective Progress Note Date: 05/12/23 patient is a 73-year-old lady with past medical significant for COPD, recent humerus surgery presented to ER from assisted for shortness of breath. Patient has been having shortness of breath for the last few days. Complaining of chest pressure as well. Denies any fever. no cough. complaining of l ethargy and weakness. patient was found to be in a. fib with rvr in the er Initial lab work done showed WBC 9.6, hemoglobin 11.7, platelet count 467, sodium 133, potassium 4.2, BUN 32, urine suspicious for UTI Chest x-ray done showed moderate opacification of left lower lobe with loculated pleural effusion Patient was admitted to medicine service 05/11. Patient seen and examined. Lab work done this morning showed WBC 9.7, hemoglobin 10.6, sodium 132, potassium 3.7, BUN 32, creatinine 0.56, Patient states her breathing is much better compared to yesterday 05/12. Patient seen and examined. Currently on 2 L of oxygen. States shortness of breath has improved. REVIEW OF SYSTEMS: CONSTITUTIONAL: No fever, no malaise,. CARDIOVASCULAR: No chest pain, no palpitations, no syncope. PULMONARY: As mentioned above GASTROINTESTINAL: No diarrhea, no nausea, no vomiting, no abdominal pain. NEUROLOGICAL: No headaches, no weakness, PHYSICAL EXAMINATION: GENERAL: The patient is alert and oriented x3, not in any acute distress. Chronically sick looking HEENT: Pupils are round and equally reacting to light. EOMI. No scleral icterus. No conjunctival pallor. Normocephalic, atraumatic. No pharyngeal erythema. No thyromegaly. CARDIOVASCULAR: S1 and S2 present. No murmurs, rubs, or gallops. PULMONARY: Coarse breath some bilaterally, tachypneic ABDOMEN: Soft, nontender, nondistended, normoactive bowel sounds. No palpable organomegaly. MUSCULOSKELETAL: Right upper extremity surgical incisions EXTREMITIES: No cyanosis, clubbing, or pedal edema. NEUROLOGICAL: Gross neurological examination did not reveal any focal deficits. SKIN: No rashes. Assessment and plan A. 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 History of pathologic fracture of right humerus Right axillary lymphadenopathy Monitor vital signs Monitor CBC Monitor CMP Continue telemetry monitoring Blood cultures growing gram-positive bacilli Continue amiodarone Continue IV Cardizem, continue to wean Continue heparin drip Continue IV Zosyn and vancomycin Follow-up up in pulmonary recommendations, pulmonary recommended IR consult for thoracentesis Follow-up on cardiology recommendations Follow up on oncology recommendations Consult ID Objective - Vital Signs Vital signs: Vital Signs Temp 97.5 F L 05/11/23 23:47 Pulse 107 H 05/12/23 02:55 Resp 24 05/12/23 02:55 BP 130/75 05/12/23 02:55 Pulse Ox 92 L 05/12/23 02:55 FiO2 Intake & Output 05/11/23 05/12/23 05/12/23 18:59 06:59 18:59 Intake Total 816.04 66.314 180 Output Total 350 450 Balance 466.04 -383.686 180 Weight 42 kg 45.5 kg Intake: Intake, IV Titration 216.04 66.314 Amount Diltiazem 125 mg In 125 Sodium Chloride 0.9% 100 ml @ 5 MG/HR 5 mls/hr IV .Q24H [facility] Rx#:[id number] Heparin Sod,Pork in 0.45% 91.04 66.314 NaCl 25,000 unit In 0.45 % NaCl 1 250ml.bag @ 12 UNITS/KG/HR 6.532 mls/hr IV .Q24H [facility] Rx#: [id number] Oral 600 180 Output: Urine 350 450 Other: Voiding Method Indwelling Catheter Indwelling Catheter # Bowel Movements 1 - Labs CBC & Chem 7: 05/11/23 03:46 05/11/23 03:46 Labs: Abnormal Lab Results - Last 24 Hours (Table) 05/11/23 05/12/23 Range/Units 12:38 00:19 APTT 30.2 H 31.9 H (22.0-30.0) sec Microbiology - Last 24 Hours (Table) 05/10/23 11:57 Urine Culture - Preliminary Urine,Voided Gram Neg Bacilli 05/10/23 13:45 Blood Culture Gram Stain - Preliminary Blood 05/10/23 13:50 Blood Culture - Preliminary Blood
[2023-05-12] MEDS ORDERED: LIDOCAINE 2% (PF) 20 MG/ML 5 ML VIAL ONE (14:53)
[2023-05-12 15:17] LABS: HCT 34.4 % (34.0-46.0); HGB 10.7 gm/dL (11.4-16.0); Hypochromasia Moderate; MCHC 31.1 g/dL (31.0-37.0); MCV 99.6 fL (80.0-100.0); Macrocytosis Slight; Mean Platelet Volume 7.7; Platelet Count 520 k/uL (150-450); RBC 3.45 m/uL (3.80-5.40); RDW 14.8 % (11.5-15.5); WBC 27.9 k/uL (3.8-10.6)
[2023-05-12 15:30] LABS: ALT 13 U/L (4-34); AST 23 U/L (14-36); African American GFR (CKD) 59 (>60 ml/min/1.73 sqM); Albumin 2.9 g/dL (3.5-5.0); Alkaline Phosphatase 94 U/L (38-126); Anion Gap 9 mmol/L; Blood Urea Nitrogen 31 mg/dL (7-17); Calcium 8.4 mg/dL (8.4-10.2); Carbon Dioxide 27 mmol/L (22-30); Chloride 95 mmol/L (98-107); Glucose 134 mg/dL (74-99); Non-African American GFR(CKD) 51 (>60 ml/min/1.73 sqM); Potassium 3.3 mmol/L (3.5-5.1); Sodium 131 mmol/L (137-145); Total Bilirubin 0.5 mg/dL (0.2-1.3); Total Protein 6.1 g/dL (6.3-8.2)
[2023-05-12 15:38] LABS: Band Neutrophils % 13 %; Eosinophils # (M) 0.56 k/uL (0-0.7); Lymphocytes # (M) 2.51 k/uL (1.0-4.8); Metamyelocytes # (M) 0.28 k/uL (0); Metamyelocytes % 1 %; Monocytes # (M) 1.67 k/uL (0-1.0); Neutrophils % (M) 69 %; Nucleated Red Blood Cells 0 /100 WBC (0-0); Total Cells Counted 100
[2023-05-12] MEDS ORDERED: VANCOMYCIN 750 MG in SODIUM CHLORIDE 0.9% 250 ML IVPB SCH (19:00)
--- NOTE | 2023-05-12 22:35 | P.CONS ---
History of Present Illness - Reason for Consult Consult date: 05/12/23 Positive blood culture Requesting physician: Jayden E Sheet - Chief Complaint Shortness of breath x few days - History of Present Illness Patient is a 73-year-old female with multiple comorbidities in this patient with recent diagnosis of metastatic sarcoma involving the right upper extremity for the patient did have a extensive surgery done at [facility] spital pathology was consistent with metastatic Sarcoma patient is now presenting back to the hospital for evaluation of increasing shortness of breath symptomatically has been getting worse for the last few days patient denies having any chest pain did have a mild cough not bringing up any sputum no nausea no vomiting no abdominal pain or any diarrhea on presentation to the hospital the patient was afebrile she did have a low-grade fever of 99.8 degrees Fahrenheit yesterday but no fever since then patient is currently on 2 L nasal cannula oxygen patient did have elevated white count of 19.6 which is up to 27.9 today BUN/creatinine has been mildly elevated liver exams are normal patient did have positive UA and urine cultures currently growing gram-negative bacilli patient did have blood cultures drawn coming back positive gram-positive bacilli patient was started on vancomycin infectious disease was consulted for further management of antibiotic therapy patient did have a chest x-ray followed by CT of the chest with large left-sided effusion with associated compressive atelectasis and multiple scattered pulmonary nodules throughout the right lung Review of Systems Positive point and negatives has been mentioned in the HPI, complete review of systems was performed and all other systems are negative Past Medical History Past Medical History: Cancer (Metastatic sarcoma), COPD, GERD/Reflux, Osteoarthritis (OA) Additional Past Medical History / Comment(s): BLADDER LEAKAGE, CHRONIC NECK PAIN, admitted with urinary catheter that was placed 04/08/23 for urinary retention. Pathologic fracture of the right humerus History of Any Multi-Drug Resistant Organisms: None Reported Past Surgical History: Appendectomy, Cholecystectomy, Hysterectomy Additional Past Surgical History / Comment(s): DENTAL SURGERY ,EXCISION GANGLION CYST -RIGHT HAND, right arm removal of humerus and placement of prosthetic related to bone cancer. Past Anesthesia/Blood Transfusion Reactions: No Reported Reaction Past Psychological History: Anxiety Smoking Status: Former smoker Past Alcohol Use History: Rare Additional Past Alcohol Use History / Comment(s): Pt quit smoking in 2022. Past Drug Use History: None Reported - Past Family History Mother Family Medical History: Cancer Father History Unknown: Yes Medications and Allergies Home Medications Medication Instructions Recorded Confirmed Type Naloxone HCl [Narcan] 4 mg NASAL DIRECTED PRN 04/03/23 05/13/23 History Omeprazole [PriLOSEC] 20 mg PO DAILY@0800 04/03/23 05/13/23 History Acetaminophen [Tylenol] 650 mg PO Q4H PRN 05/10/23 05/13/23 History Calcium Carbonate/Vitamin D3 1 tab PO BID@0800,1700 05/10/23 05/13/23 History [Oyster Shell 250-Vit D3 3.125 Mcg (125 Iu)] Enoxaparin Sodium 40 mg SQ DAILY@1700 05/10/23 05/13/23 History Ensure Enlive 120 ml PO BID@0800,1700 05/10/23 05/13/23 History Ergocalciferol (Vitamin D2) 1,250 mcg PO TH@0800 05/10/23 05/13/23 History [Drisdol (50,000 Iu)] Ipratropium-Albuterol Nebulize 3 ml INHALATION RT-Q6H PRN 05/10/23 05/13/23 History [Duoneb 0.5 mg-3 mg/3 ml Soln] Magnesium Hydroxide [Milk of 7,200 mg PO Q48H PRN 05/10/23 05/13/23 History Magnesia Concentrate] Na Phos,M-B/Na Phos,Di-Ba [Fleet 133 ml RECTAL DAILY PRN 05/10/23 05/13/23 History Adult] Nystatin [Nystatin Oral Susp] 500,000 unit PO QID@08,12,17,21 05/10/23 05/13/23 History Sennosides/Docusate Sodium 1 tab PO BID@0800,1700 05/10/23 05/13/23 History [Senna-S 8.6-50 mg Tablet] bisacodyL [Dulcolax] 10 mg RECTAL DAILY PRN 05/10/23 05/13/23 History fentaNYL 25MCG/HR PATCH [Duragesic 1 patch TRANSDERM Q72H 05/10/23 05/13/23 History 25MCG/HR] oxyCODONE-APAP 10-325MG [Percocet 1 tab PO Q6HR PRN 05/10/23 05/13/23 History 10-325 mg] polyethylene glycoL 3350 [Miralax] 17 gm PO BID PRN 05/10/23 05/13/23 History polyethylene glycoL 3350 [Miralax] 17 gm PO DAILY@0800 05/10/23 05/13/23 History Allergies Allergy/AdvReac Type Severity Reaction Status Date / Time codeine Allergy Rash/Hives Verified 05/10/23 12:40 Physical Exam Vitals: Vital Signs Temp Pulse Resp BP BP Pulse Ox 05/12/23 11:07 97.1 F L 109 H 22 125/74 95 05/12/23 07:55 97.2 F L 110 H 22 149/82 95 05/12/23 02:55 107 H 24 130/75 92 L 05/12/23 02:00 107 H 24 05/11/23 23:47 97.5 F L 104 H 18 119/77 92 L 05/11/23 20:00 95 18 109/65 94 L 05/11/23 16:00 97 F L 105 H 20 115/73 93 L Intake and Output 05/11/23 05/12/23 05/12/23 22:59 06:59 14:59 Intake Total 451.04 66.314 544.083 Output Total 250 450 425 Balance 201.04 -383.686 119.083 Intake: IV 250 .9@20 240 Invasive Line 1 10 Intake, IV Titration 91.04 66.314 114.083 Amount Diltiazem 125 mg In 14.083 Sodium Chloride 0.9% 100 ml @ 5 MG/HR 5 mls/hr IV .Q24H [facility] Rx#:[id number] Heparin Sod,Pork in 0.45% 91.04 66.314 NaCl 25,000 unit In 0.45 % NaCl 1 250ml.bag @ 12 UNITS/KG/HR 6.532 mls/hr IV .Q24H [facility] Rx#: [id number] Piperacillin-Tazobactam 3 100 .375 gm In Sodium Chloride 0.9% 100 ml @ 25 mls/hr IVPB Q8HR [facility] Rx# :[id number] Oral 360 180 Output: Urine 250 450 425 Other: Voiding Method Indwelling Catheter Indwelling Catheter Indwelling Catheter # Bowel Movements 1 Weight 45.5 kg GENERAL DESCRIPTION: Elderly female lying in bed, no distress. No tachypnea or accessory muscle of respiration use. HEENT: Shows Pallor , no scleral icterus. Oral mucous membrane is dry. NECK: Trachea central, no thyromegaly. LUNGS: Unlabored breathing. Coarse breath sounds bilaterally with occasional wheeze HEART: S1, S2, regular rate and rhythm. No loud murmur ABDOMEN: Soft, no tenderness , guarding or rigidity, no organomegaly EXTREMITIES: No edema of feet. SKIN: No rash, no masses palpable. NEUROLOGICAL: The patient is lethargic but arousable, mood and affect normal. Results CBC & Chem 7: 05/13/23 09:10 05/13/23 09:10 Labs: Abnormal Lab Results - Last 24 Hours (Table) 05/12/23 Range/Units 00:19 APTT 31.9 H (22.0-30.0) sec Microbiology - Last 24 Hours (Table) 05/10/23 11:57 Urine Culture - Preliminary Urine,Voided Gram Neg Bacilli 05/10/23 13:45 Blood Culture Gram Stain - Preliminary Blood 05/10/23 13:50 Blood Culture - Preliminary Blood Assessment and Plan (1) Positive blood culture Status: Acute Code(s): R78.81 - BACTEREMIA SNOMED Code(s): 484590960 (2) UTI (urinary tract infection) Status: Acute Code(s): N39.0 - URINARY TRACT INFECTION, SITE NOT SPECIFIED SNOMED Code(s): 98721444 Plan: 1patient with a positive blood culture with gram-positive bacilli which is more likely skin contamination in this patient presented to hospital with increasing shortness of breath and noticed to have a large left-sided effusion with compressive atelectasis and concern for possible parapneumonic effusion patient did have elevated white count however did not have any fever and no significant cough or sputum production 2-patient did have mild elevated creatinine high risk of nephrotoxicity from vancomycin and Zosyn combination 3-positive UA and urine culture showing gram-negative bacilli ID sensitivities pending 4-discontinue vancomycin however continue patient on Zosyn 5-we will repeat the blood cultures check a CRP and a procalcitonin We will follow on clinical condition and cultures to further adjust medication if needed Thank you for this consultation we will follow the patient along with you Time with Patient: Greater than 30
[2023-05-13] MEDS: PIPERACILLIN-TAZOBACTAM 3.375 GM in SODIUM CHLORIDE 0.9% 100 ML IVPB SCH ×2 (00:40→14:53)
[2023-05-13] MEDS: ACETAMINOPHEN TAB 325 MG TAB PO PRN (00:44)
[2023-05-13] MEDS: FUROSEMIDE 10 MG/ML 2 ML VIAL IV SCH ×2 (02:38→13:19)
[2023-05-13] MEDS: oxyCODONE-APAP 10-325MG 1 EACH TAB PO PRN ×2 (03:24→09:21)
[2023-05-13 03:52] VITALS: TEMP 97.5
[2023-05-13] MEDS: PANTOPRAZOLE 40 MG TABLET PO SCH (09:19)
[2023-05-13] MEDS: NYSTATIN 100,000 UNIT/ML SUSP 500,000 UNIT/5 ML CUP PO SCH ×2 (09:19→13:22)
[2023-05-13] MEDS: AMIODARONE 200 MG TAB PO SCH (09:20)
[2023-05-13] MEDS: SENNOSIDES-DOCUSATE SODIUM 1 EACH TAB PO SCH (09:21)
[2023-05-13 09:48] LABS: ALT 13 U/L (4-34); AST 17 U/L (14-36); African American GFR (CKD) 55 (>60 ml/min/1.73 sqM); Albumin 2.7 g/dL (3.5-5.0); Alkaline Phosphatase 102 U/L (38-126); Anion Gap 15 mmol/L; Blood Urea Nitrogen 36 mg/dL (7-17); Calcium 8.8 mg/dL (8.4-10.2); Carbon Dioxide 22 mmol/L (22-30); Chloride 96 mmol/L (98-107); Glucose 118 mg/dL (74-99); Non-African American GFR(CKD) 47 (>60 ml/min/1.73 sqM); Potassium 3.5 mmol/L (3.5-5.1); Sodium 133 mmol/L (137-145); Total Bilirubin 0.6 mg/dL (0.2-1.3); Total Protein 5.7 g/dL (6.3-8.2)
[2023-05-13 09:53] LABS: INR 1.1 (<1.2); Partial Thromboplastin Time 25.3 sec (22.0-30.0); Prothrombin Time 11.3 sec (9.0-12.0)
[2023-05-13 10:03] LABS: HCT 34.3 % (34.0-46.0); HGB 10.6 gm/dL (11.4-16.0); Hypochromasia Marked; MCH 31.9 pg (25.0-35.0); MCV 102.8 fL (80.0-100.0); Macrocytosis Slight; Mean Platelet Volume 7.9; Platelet Count 521 k/uL (150-450); RBC 3.34 m/uL (3.80-5.40); RDW 14.7 % (11.5-15.5); WBC 33.4 k/uL (3.8-10.6)
--- NOTE | 2023-05-13 10:59 | P.PN ---
Subjective HISTORY OF PRESENT ILLNESS: This is a 73-year-old female with a history of metastatic sarcoma with pulmonary nodules and pathologic fracture of right humerus. Patient is admitted to the hospital secondary to shortness of breath. Patient was found to have a loculated left-sided pleural effusion. Interventional radiology has been consulted for thoracentesis. The patient was also found to have new onset atrial fibrillation. Patient is currently on IV heparin and IV Cardizem. Per nursing, IV heparin has been held as they're unable to obtain labs on the patient to monitor PTT. Telemetry reveals atrial fibrillation with controlled ventricular rate. PHYSICAL EXAM: VITAL SIGNS: Reviewed. GENERAL: Well-developed in no acute distress. NECK: Supple. No JVD or thyromegaly LUNGS: Respirations even and unlabored. Lungs diminished with x-ray wheezing and rhonchi noted HEART: Irregular rate and rhythm. S1 and S2 heard. EXTREMITIES: Steri-Strips noted to right upper extremity. Normal range of m otion. No clubbing or cyanosis. Peripheral pulses intact. No lower extremity edema ASSESSMENT: Shortness of breath Acute hypoxic respiratory failure Loculated left-sided pleural effusion Metastatic sarcoma with pulmonary nodules and pathologic fracture of right humerus New onset atrial fibrillation, currently rate controlled Acute congestive heart failure with preserved ejection fraction, 55-60% History of COPD PLAN: Anticoagulation currently on hold as patient is scheduled for thoracentesis today. Will begin Eliquis tonight. Discontinue IV Cardizem. Begin oral Cardizem 30 mg 3 times a day Continue current dose of amiodarone 200 mg 3 times a day Continue IV Lasix: 20mg every 12 hours Daily weights, accurate I&O, and monitoring of kidney function Further recommendations from any patient course Nurse practitioner note has been reviewed by physician. Signing provider agrees with the documented findings, assessment, and plan of care. Objective - Vital Signs Vital signs: Vital Signs Temp 97.5 F L 05/13/23 03:50 Pulse 92 05/13/23 08:35 Resp 24 05/13/23 08:35 BP 106/72 05/13/23 08:35 Pulse Ox 93 L 05/13/23 08:35 FiO2 Intake & Output 05/12/23 05/13/23 05/13/23 18:59 06:59 18:59 Intake Total 702.677 103.61 Output Total 425 225 Balance 277.677 -121.39 Weight 40 kg Intake: IV 260 20 .9@20 240 Invasive Line 1 20 10 Invasive Line 2 10 Intake, IV Titration 262.677 83.61 Amount Diltiazem 125 mg In 14.083 Sodium Chloride 0.9% 100 ml @ 5 MG/HR 5 mls/hr IV .Q24H [facility] Rx#:[id number] Heparin Sod,Pork in 0.45% 148.594 83.61 NaCl 25,000 unit In 0.45 % NaCl 1 250ml.bag @ 12 UNITS/KG/HR 6.532 mls/hr IV .Q24H [facility] Rx#: [id number] Piperacillin-Tazobactam 3 100 .375 gm In Sodium Chloride 0.9% 100 ml @ 25 mls/hr IVPB Q8HR [facility] Rx# :[id number] Oral 180 Output: Urine 425 225 Other: Voiding Method Indwelling Catheter Indwelling Catheter - Labs CBC & Chem 7: 05/13/23 09:10 05/13/23 09:10 Labs: Abnormal Lab Results - Last 24 Hours (Table) 05/12/23 05/12/23 05/12/23 Range/Units 14:00 15:02 15:02 WBC 27.9 H (3.8-10.6) k/uL RBC 3.45 L (3.80-5.40) m/uL Hgb 10.7 L (11.4-16.0) gm/dL MCV (80.0-100.0) fL Plt Count 520 H (150-450) k/uL Neutrophils # (Manual) 22.80 H (1.3-7.7) k/uL Monocytes # (Manual) 1.67 H (0-1.0) k/uL Metamyelocytes # (Man) 0.28 H (0) k/uL APTT 81.5 H (22.0-30.0) sec Sodium 131 L (137-145) mmol/L Potassium 3.3 L (3.5-5.1) mmol/L Chloride 95 L (98-107) mmol/L BUN 31 H (7-17) mg/dL Creatinine 1.07 H (0.52-1.04) mg/dL Glucose 134 H (74-99) mg/dL Total Protein 6.1 L (6.3-8.2) g/dL Albumin 2.9 L (3.5-5.0) g/dL 05/13/23 05/13/23 Range/Units 09:10 09:10 WBC 33.4 H (3.8-10.6) k/uL RBC 3.34 L (3.80-5.40) m/uL Hgb 10.6 L (11.4-16.0) gm/dL MCV 102.8 H (80.0-100.0) fL Plt Count 521 H (150-450) k/uL Neutrophils # (Manual) (1.3-7.7) k/uL Monocytes # (Manual) (0-1.0) k/uL Metamyelocytes # (Man) (0) k/uL APTT (22.0-30.0) sec Sodium 133 L (137-145) mmol/L Potassium (3.5-5.1) mmol/L Chloride 96 L (98-107) mmol/L BUN 36 H (7-17) mg/dL Creatinine 1.14 H (0.52-1.04) mg/dL Glucose 118 H (74-99) mg/dL Total Protein 5.7 L (6.3-8.2) g/dL Albumin 2.7 L (3.5-5.0) g/dL Microbiology - Last 24 Hours (Table) 05/10/23 13:45 Blood Culture Gram Stain - Final Blood Blood Culture - Final Bacillus species Not Anthracis 05/10/23 13:50 Blood Culture - Preliminary Blood 05/10/23 11:57 Urine Culture - Preliminary Urine,Voided Gram Neg Bacilli
[2023-05-13] MEDS ORDERED: DILTIAZEM ORAL 30 MG TAB PO SCH (11:15)
[2023-05-13 12:57] LABS: Band Neutrophils % 4 %; Eosinophils # (M) 0.33 k/uL (0-0.7); Metamyelocytes # (M) 0.33 k/uL (0); Metamyelocytes % 1 %; Neutrophils % (M) 90 %; Nucleated Red Blood Cells 0 /100 WBC (0-0); Total Cells Counted 200
[2023-05-13 12:59] LABS: Toxic Granulation Present
[2023-05-13 13:24] VITALS: BMI 16.6
--- NOTE | 2023-05-13 13:51 | P.PN ---
Subjective Progress Note Date: 05/13/23 This is a 73-year-old female resident of a subacute rehab with past medical history significant for pathological fracture of the right upper extremity - recently diagnosed metastatic sarcoma. Chest CT reported large left-sided pleural effusion with compressive atelectasis, multiple scattered pulmonary nodu les throughout the right lung with pleural plaque density at the right lower lobe posteriorly and adjacent to the right heart border. Intervention radiology consulted for thoracentesis. Maintained on Zosyn and vancomycin as per ID. Atrial fibrillation with controlled ventricular rate. Anticoagulated on IV heparin. Continues on Cardizem drip and IV push Lasix. Reports fatigued, tiredness. Maintaining O2 sats in the 90s on 3 L nasal cannula. Objective - Vital Signs Vital signs: Vital Signs Temp 97.5 F L 05/13/23 03:50 Pulse 92 05/13/23 08:35 Resp 24 05/13/23 08:35 BP 106/72 05/13/23 08:35 Pulse Ox 93 L 05/13/23 08:35 FiO2 Intake & Output 05/12/23 05/13/23 05/13/23 18:59 06:59 18:59 Intake Total 702.677 103.61 Output Total 425 225 Balance 277.677 -121.39 Weight 40 kg Intake: IV 260 20 .9@20 240 Invasive Line 1 20 10 Invasive Line 2 10 Intake, IV Titration 262.677 83.61 Amount Diltiazem 125 mg In 14.083 Sodium Chloride 0.9% 100 ml @ 5 MG/HR 5 mls/hr IV .Q24H [facility] Rx#:[id number] Heparin Sod,Pork in 0.45% 148.594 83.61 NaCl 25,000 unit In 0.45 % NaCl 1 250ml.bag @ 12 UNITS/KG/HR 6.532 mls/hr IV .Q24H [facility] Rx#: [id number] Piperacillin-Tazobactam 3 100 .375 gm In Sodium Chloride 0.9% 100 ml @ 25 mls/hr IVPB Q8HR [facility] Rx# :[id number] Oral 180 Output: Urine 425 225 Other: Voiding Method Indwelling Catheter Indwelling Catheter - Exam PHYSICAL EXAM: VITAL SIGNS: [As above] GENERAL: Sitting up in bed, no acute distress, fatigued HEENT: Normocephalic, Conjunctivae normal. eyes normal. NECK: Supple, No JVD. CARDIOVASCULAR: S1, S2. Irregular. No murmur RESPIRATION: Bilateral air entry, left base dullness ,diminished ABDOMEN: Soft, nondistended, nontender . No guarding. Bowel sounds heard. LEGS: No edema. no swelling, tenderness, positive DP pulses PSYCHIATRY: Alert and oriented X3, mood and affect normal. NERVOUS SYSTEM: Cranial N 2-12 grossly normal. Diffuse weakness No focal deficits. Strength and sensation grossly intact.. Skin: Right upper extremity prior surgical site, Warm and dry ,no rash - Labs CBC & Chem 7: 05/13/23 09:10 05/13/23 09:10 Labs: Abnormal Lab Results - Last 24 Hours (Table) 05/12/23 05/12/23 05/12/23 Range/Units 14:00 15:02 15:02 WBC 27.9 H (3.8-10.6) k/uL RBC 3.45 L (3.80-5.40) m/uL Hgb 10.7 L (11.4-16.0) gm/dL MCV (80.0-100.0) fL Plt Count 520 H (150-450) k/uL Neutrophils # (Manual) 22.80 H (1.3-7.7) k/uL Monocytes # (Manual) 1.67 H (0-1.0) k/uL Metamyelocytes # (Man) 0.28 H (0) k/uL APTT 81.5 H (22.0-30.0) sec Sodium 131 L (137-145) mmol/L Potassium 3.3 L (3.5-5.1) mmol/L Chloride 95 L (98-107) mmol/L BUN 31 H (7-17) mg/dL Creatinine 1.07 H (0.52-1.04) mg/dL Glucose 134 H (74-99) mg/dL Total Protein 6.1 L (6.3-8.2) g/dL Albumin 2.9 L (3.5-5.0) g/dL 05/13/23 05/13/23 Range/Units 09:10 09:10 WBC 33.4 H (3.8-10.6) k/uL RBC 3.34 L (3.80-5.40) m/uL Hgb 10.6 L (11.4-16.0) gm/dL MCV 102.8 H (80.0-100.0) fL Plt Count 521 H (150-450) k/uL Neutrophils # (Manual) (1.3-7.7) k/uL Monocytes # (Manual) (0-1.0) k/uL Metamyelocytes # (Man) (0) k/uL APTT (22.0-30.0) sec Sodium 133 L (137-145) mmol/L Potassium (3.5-5.1) mmol/L Chloride 96 L (98-107) mmol/L BUN 36 H (7-17) mg/dL Creatinine 1.14 H (0.52-1.04) mg/dL Glucose 118 H (74-99) mg/dL Total Protein 5.7 L (6.3-8.2) g/dL Albumin 2.7 L (3.5-5.0) g/dL Microbiology - Last 24 Hours (Table) 05/10/23 13:45 Blood Culture Gram Stain - Final Blood Blood Culture - Final Bacillus species Not Anthracis 05/10/23 13:50 Blood Culture - Preliminary Blood 05/10/23 11:57 Urine Culture - Preliminary Urine,Voided Gram Neg Bacilli Assessment and Plan Assessment: New onset loculated left-sided pleural effusion that is leading to shortness of breath, rule out parapneumonic effusion, rule out malignant pleural effusion Acute CHF with diastolic dysfunction Acute hypoxic respiratory failure secondary to the above Metastatic sarcoma with bilateral pulmonary nodules, prominent axillary lymph nodes, pathologic fracture of right humerus, status post Right humeral ORIF New-onset atrial fibrillation with RVR Anxiety Gastroesophageal reflux disease Chronic pain syndrome History of Extensive nicotine dependence COPD Plan: Continue on current medication regime ,monitoring and symptomatic treatment. Interventional radiology consult in place for thoracentesis. Anticoagulation with IV heparin. Antiarrhythmics as per cardiology. Prognosis guarded given multiple complex medical issues. The impression and plan of care has been dictated as directed. : I performed a history and examination of this patient, discussed the same with the dictator. I agree with the dictator's note ,documented as a scribe. Any additional findings or plans will be noted.
--- NOTE | 2023-05-13 14:07 | P.PN ---
Subjective Progress Note Date: 05/13/23 Principal diagnosis: Acute hypoxic respiratory failure, multifactorial A 73-year-old female patient was restless for worsening shortness of breath. The patient has been recently diagnosed having metastatic sarcoma. She initially presented to us with a pathologic fracture of the right upper extremity. At that time, the patient had a soft tissue lesion and the lesion was approximately 16.5 cm in length and the soft tissue was causing displacement of the normal fatty bone marrow. There was also underlying soft tissue mass extending outside the humerus. Satellite lesions were also seen in the musculature and multiple right basilar lymph nodes and bilateral pulmonary nod ules also noted and the concern was metastatic disease. At that point, the patient was transferred to [facility] under the patient underwent a right upper extremity surgery with surgical fixation and placement of hardware. 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 Note that the CAT scan of the chest that was done back in March 2023 in our hospital showed no evidence of any pleural effusion and the patient had scattered bilateral pulmonary nodules largest being 10 mm in size. No reported aspiration. No fever or chills. Repeat chest x-ray shows a loculated left-sided pleural effusion which is moderate in size. For that reason, the patient was admitted to the hospital. She is currently on 2 L of oxygen by nasal cannula. Echo cardiac exam shows a preserved LV function with an ejection fraction of 55-60%. There was small pericardial effusion. Blood work from today shows a white cell count of 19.7, hemoglobin of 10.6 and a platelet count of 433. The patient was placed on Rocephin. Normal coagulation profile. BUN is at 30 with a creatinine of 0.5 and a sodium level is at 132. ProBNP level is at 1340 and the troponins are negative. UA was suggestive of an underlying infection and the patient was started on IV Rocephin. She has a Perez catheter in place at this point in time. On today's evaluation of 05/12/2023, the patient is stable at 2 L of oxygen by nasal cannula. I reviewed the CAT scan of the chest and the patient has a moderate-sized left-sided pleural effusion along with compressive atelectasis. The fluid somewhat loculated and there is areas of atelectatic lung and loculation and adhesion formation possibly some underlying lung bases also. In fact, the patient has multiple scattered pulmonary nodules throughout the right lung with elevated density at the right lower lobe posteriorly and along the right heart border. The echoes of 19 with a hemoglobin of 10.0. The patient remains on Zosyn and vancomycin. The patient remains on IV heparin. She did have atrial fibrillation the patient continues to be in A. fib. She was on a Cardizem drip at 5 mg an hour and Lasix 20 mg IV every 12 hours. Reevaluated today on 05/13/2023, patient remains on oxygen at 2 L/m, patient is scheduled to have thoracentesis by interventional radiology for what seems to be moderate sized left-sided pleural effusion with compressive atelectasis and seems to be relatively loculated. Patient obviously has metastatic sarcoma and the pleural effusion is most likely malignant unless for otherwise. WC count today is 33.4 hemoglobin is 10.6. Basic metabolic profile is normal. BUN is 36 creatinine 1.14 Objective - Vital Signs Vital signs: Vital Signs Temp 97.5 F L 05/13/23 03:50 Pulse 92 05/13/23 08:35 Resp 24 05/13/23 08:35 BP 106/72 05/13/23 08:35 Pulse Ox 93 L 05/13/23 08:35 FiO2 Intake & Output 05/12/23 05/13/23 05/13/23 18:59 06:59 18:59 Intake Total 702.677 103.61 Output Total 425 225 Balance 277.677 -121.39 Weight 40 kg 40 kg Intake: IV 260 20 .9@20 240 Invasive Line 1 20 10 Invasive Line 2 10 Intake, IV Titration 262.677 83.61 Amount Diltiazem 125 mg In 14.083 Sodium Chloride 0.9% 100 ml @ 5 MG/HR 5 mls/hr IV .Q24H [facility] Rx#:[id number] Heparin Sod,Pork in 0.45% 148.594 83.61 NaCl 25,000 unit In 0.45 % NaCl 1 250ml.bag @ 12 UNITS/KG/HR 6.532 mls/hr IV .Q24H [facility] Rx#: [id number] Piperacillin-Tazobactam 3 100 .375 gm In Sodium Chloride 0.9% 100 ml @ 25 mls/hr IVPB Q8HR [facility] Rx# :[id number] Oral 180 Output: Urine 425 225 Other: Voiding Method Indwelling Catheter Indwelling Catheter Indwelling Catheter - Exam GENERAL EXAM: Revealed 73-year-old female, frail looking chronically ill, on 2 L nasal cannula. HEAD: Normocephalic. EYES: Normal reaction of pupils, equal size. NOSE: Clear with pink turbinates. THROAT: No erythema or exudates. NECK: No masses, no JVD. CHEST: No chest wall deformity. LUNGS: Diminished breath sounds and dullness at the left base. Right side is relatively clear. CVS: S1 and S2 normal with no audible murmur, regular rhythm. ABDOMEN: Soft nontender no megaly no rebound no guarding positive bowel sounds. SKIN: No rashes CENTRAL NERVOUS SYSTEM: No focal deficits, tone is normal in all 4 extremities. EXTREMITIES: Right upper extremity has a surgical scar extending from her shoulder all the way down to her elbow and the surgical wound site is dry clean and intact.. There is no peripheral edema. No clubbing, no cyanosis. Peripheral pulses are intact. - Labs CBC & Chem 7: 05/13/23 09:10 05/13/23 09:10 Labs: Abnormal Lab Results - Last 24 Hours (Table) 05/12/23 05/12/23 05/12/23 Range/Units 14:00 15:02 15:02 WBC 27.9 H (3.8-10.6) k/uL RBC 3.45 L (3.80-5.40) m/uL Hgb 10.7 L (11.4-16.0) gm/dL MCV (80.0-100.0) fL Plt Count 520 H (150-450) k/uL Neutrophils # (Manual) 22.80 H (1.3-7.7) k/uL Monocytes # (Manual) 1.67 H (0-1.0) k/uL Metamyelocytes # (Man) 0.28 H (0) k/uL APTT 81.5 H (22.0-30.0) sec Sodium 131 L (137-145) mmol/L Potassium 3.3 L (3.5-5.1) mmol/L Chloride 95 L (98-107) mmol/L BUN 31 H (7-17) mg/dL Creatinine 1.07 H (0.52-1.04) mg/dL Glucose 134 H (74-99) mg/dL Total Protein 6.1 L (6.3-8.2) g/dL Albumin 2.9 L (3.5-5.0) g/dL 05/13/23 05/13/23 Range/Units 09:10 09:10 WBC 33.4 H (3.8-10.6) k/uL RBC 3.34 L (3.80-5.40) m/uL Hgb 10.6 L (11.4-16.0) gm/dL MCV 102.8 H (80.0-100.0) fL Plt Count 521 H (150-450) k/uL Neutrophils # (Manual) 31.30 H (1.3-7.7) k/uL Monocytes # (Manual) (0-1.0) k/uL Metamyelocytes # (Man) 0.33 H (0) k/uL APTT (22.0-30.0) sec Sodium 133 L (137-145) mmol/L Potassium (3.5-5.1) mmol/L Chloride 96 L (98-107) mmol/L BUN 36 H (7-17) mg/dL Creatinine 1.14 H (0.52-1.04) mg/dL Glucose 118 H (74-99) mg/dL Total Protein 5.7 L (6.3-8.2) g/dL Albumin 2.7 L (3.5-5.0) g/dL Microbiology - Last 24 Hours (Table) 05/10/23 13:45 Blood Culture Gram Stain - Final Blood Blood Culture - Final Bacillus species Not Anthracis 05/10/23 13:50 Blood Culture - Preliminary Blood 05/10/23 11:57 Urine Culture - Preliminary Urine,Voided Gram Neg Bacilli Assessment and Plan Assessment: Impression: Metastatic sarcoma with recent right humeral ORIF with instrumentation done at [facility] Suspect metastasis to the lungs with multiple pulmonary nodules and pleural effusion Acute hypoxic respiratory failure secondary to above New-onset atrial fibrillation [id number] smoking history History of underlying COPD presently inactive History of CVA/TIA Chronic pain syndrome GERD without esophagitis Recommendation: Awaiting interventional radiology to perform thoracentesis on this patient Continue present meds including Lasix Hold eliquis for thoracentesis Continue amiodarone Continue bronchodilators Continue antibiotics as Zosyn, vancomycin was discontinued We will continue to follow. Continue pain control management with fentanyl patches and with oxycodone. No significant is extremely poor and guarded considering her metastatic sarcoma. Time with Patient: Less than 30
--- NOTE | 2023-05-13 14:26 | P.PN ---
Subjective Progress Note Date: 05/13/23 Principal diagnosis: A. fib, CHF. Recent diagnosis of sarcoma, s/p surgery. In follow-up today patient is drowsy, when asked if she is in pain she notes her head yes, she is still sipping some fluids, not much oral intake otherwise. Objective - Vital Signs Vital signs: Vital Signs Temp 97.5 F L 05/13/23 03:50 Pulse 92 05/13/23 08:35 Resp 24 05/13/23 08:35 BP 106/72 05/13/23 08:35 Pulse Ox 93 L 05/13/23 08:35 FiO2 Intake & Output 05/12/23 05/13/23 05/13/23 18:59 06:59 18:59 Intake Total 702.677 103.61 Output Total 425 225 Balance 277.677 -121.39 Weight 40 kg 40 kg Intake: IV 260 20 .9@20 240 Invasive Line 1 20 10 Invasive Line 2 10 Intake, IV Titration 262.677 83.61 Amount Diltiazem 125 mg In 14.083 Sodium Chloride 0.9% 100 ml @ 5 MG/HR 5 mls/hr IV .Q24H [facility] Rx#:[id number] Heparin Sod,Pork in 0.45% 148.594 83.61 NaCl 25,000 unit In 0.45 % NaCl 1 250ml.bag @ 12 UNITS/KG/HR 6.532 mls/hr IV .Q24H [facility] Rx#: [id number] Piperacillin-Tazobactam 3 100 .375 gm In Sodium Chloride 0.9% 100 ml @ 25 mls/hr IVPB Q8HR [facility] Rx# :[id number] Oral 180 Output: Urine 425 225 Other: Voiding Method Indwelling Catheter Indwelling Catheter Indwelling Catheter - Constitutional Constitutional Comment(s): Frail, generalized weakness, mild respiratory distress General appearance: Present: thin - EENT Eyes: Present: anicteric sclerae, EOMI ENT: Present: hearing grossly normal - Respiratory Respiratory: bilateral: diminished - Cardiovascular Rhythm: irregularly irregular Heart sounds: normal: S1, S2 - Peripheral edema leg Peripheral Edema: bilateral: Trace - Gastrointestinal General gastrointestinal: Present: normal bowel sounds, soft - Integumentary Integumentary: Present: pale - Musculoskeletal Musculoskeletal: Present: generalized weakness - Psychiatric Psychiatric Comment(s): Patient is alert, no verbal communication - Labs CBC & Chem 7: 05/13/23 09:10 05/13/23 09:10 Labs: Abnormal Lab Results - Last 24 Hours (Table) 05/12/23 05/12/23 05/12/23 Range/Units 14:00 15:02 15:02 WBC 27.9 H (3.8-10.6) k/uL RBC 3.45 L (3.80-5.40) m/uL Hgb 10.7 L (11.4-16.0) gm/dL MCV (80.0-100.0) fL Plt Count 520 H (150-450) k/uL Neutrophils # (Manual) 22.80 H (1.3-7.7) k/uL Monocytes # (Manual) 1.67 H (0-1.0) k/uL Metamyelocytes # (Man) 0.28 H (0) k/uL APTT 81.5 H (22.0-30.0) sec Sodium 131 L (137-145) mmol/L Potassium 3.3 L (3.5-5.1) mmol/L Chloride 95 L (98-107) mmol/L BUN 31 H (7-17) mg/dL Creatinine 1.07 H (0.52-1.04) mg/dL Glucose 134 H (74-99) mg/dL Total Protein 6.1 L (6.3-8.2) g/dL Albumin 2.9 L (3.5-5.0) g/dL 05/13/23 05/13/23 Range/Units 09:10 09:10 WBC 33.4 H (3.8-10.6) k/uL RBC 3.34 L (3.80-5.40) m/uL Hgb 10.6 L (11.4-16.0) gm/dL MCV 102.8 H (80.0-100.0) fL Plt Count 521 H (150-450) k/uL Neutrophils # (Manual) 31.30 H (1.3-7.7) k/uL Monocytes # (Manual) (0-1.0) k/uL Metamyelocytes # (Man) 0.33 H (0) k/uL APTT (22.0-30.0) sec Sodium 133 L (137-145) mmol/L Potassium (3.5-5.1) mmol/L Chloride 96 L (98-107) mmol/L BUN 36 H (7-17) mg/dL Creatinine 1.14 H (0.52-1.04) mg/dL Glucose 118 H (74-99) mg/dL Total Protein 5.7 L (6.3-8.2) g/dL Albumin 2.7 L (3.5-5.0) g/dL Microbiology - Last 24 Hours (Table) 05/10/23 13:45 Blood Culture Gram Stain - Final Blood Blood Culture - Final Bacillus species Not Anthracis 05/10/23 13:50 Blood Culture - Preliminary Blood 05/10/23 11:57 Urine Culture - Preliminary Urine,Voided Gram Neg Bacilli Assessment and Plan (1) Sarcoma Current Visit: Yes Status: Acute Priority: High Code(s): C49.9 - MALIGNANT NEOPLASM OF CONNECTIVE AND SOFT TISSUE, UNSP SNOMED Code(s): 905752514 Plan: Sarcoma -Recent surgery for panful pathological rt humerus fracture, pathology positive for sarcoma. -Pending records to review Medical Oncology/Orthopedic Onc plan of care -Patient's son at the bedside reported she had been in rehabilitation and unfortunately, was not doing as well as the Surgeon had hoped for when she was seen in the office postop. -CT chest in March reported pulmonary nodules. Patient now has what sounds like more numerous pulmonary nodules as well as a pleural effusion. Family states that the thoracentesis was postponed-likely, because patient went into an arrhythmia overnight and is on Cardizem and heparin drip acutely. Pending Pulmonary re-assessment. Discussed with the son concerns for patient's overall poor physical health, poor healing, poor performance status and all of this is causing delay in systemic treatment. He and the family were looking to find out if malignancy has indeed spread to the lungs, pending biopsy/thoracentesis. I think they wanted more information before coming to a final decision as to how they would like to proceed with care. We will keep in communication with the family. Pending Specialty review of the case because, not certain if patient is going to tolerate any additional procedures. Acute on chronic pain -Fentanyl patch has been increased -Medications for breakthrough pain ordered -Medications for prevention of narcotic-induced constipation ordered
[2023-05-13 14:32] VITALS: BP 112/71; PULSE 96; RESP 30
[2023-05-13] MEDS: HEPARIN SOD,PORK IN 0.45% NACL 25,000 UNIT in 0.45% NACL 1 250ML.BAG IV SCH (14:55)
[2023-05-13] MEDS ORDERED: APIXABAN 5 MG TAB PO SCH (21:00)
--- NOTE | 2023-05-15 11:24 | CDI ---
Documentation Clarification Form Date: 05/15/23 From: Niharika Shine Admit Date: 05/10/2023 01:23:00 PM Patient Name: Mehnaz Carrasco Visit Number: [id number] Discharge Date: 05/13/2023 03:52:00 PM ATTENTION: The Clinical Documentation Specialists (CDI) and [facility] Coding Staff appreciate your assistance in clarifying documentation. Please respond to the clarification below the line at the bottom and electronically sign. The CDI & [facility] Coding staff will review the response and follow-up if needed. Please note: Queries are made part of the Legal Health Record. If you have any questions, please contact the author of this message via ITS. Dr. Naif Lovell, The patient has bacteremia in 05/12 PN Based on this information and the findings below, is there an additional diagnosis that is clinically appropriate for this patient? History/Risk Factors: COPD, recent sarcoma of right humerus with mets, atrial fibrillation, UTI with catheter placed 04/08 for urinary retention Clinical Indicators: Bacteremia documented in 05/12 PN. Afebrile on presentation to hospital, 99.8 temp n 05/11. WBC: 19.6 (05/10), 19.7 (05/11), 27.9 (05/12), 33.4 (05/13) Neutrophils: 17.40 (05/10), 15.90 (05/11), 22.80 (05/12), 31.30 (05/13) Lactic acid: 1.8 (05/11) Blood cultures: Gram positive Bacilli (05/10) Urine culture: Pseudomonas aeruginosa (05/10) Vitals signs: P 180, R 24, BP 75/40, O2 95 2L NC (05/10 Treatment: IV Rocephin, IV Zoysn, IV Vancomycin ID Consult: Gram positive bacilli which is more likely skin contamination Is there an additional diagnosis that is clinically appropriate for this patient? [ x ] Sepsis, present on admission [ ] Sepsis not present on admission [ ] Sepsis due to Perez catheter [ ] Sepsis ruled out [ ] Bacteremia [ ] Severe Sepsis with organ failure [ ] Septic Shock [ ] Other, please specify [ ] Unable to determine SIRS Criteria: 2 or more of the following may indicate SIRS Temperature < 96.8F (36C) or > 101.0F (38.3C) Heart Rate > 90 bpm Respiratory Rate > 20 breaths/min or PaCO2 < 32 mmHg White Blood Cell Count > 12,000 or < 4,000 cells/mm3 or > 10% bands MTDD
[2023-05-16] MEDS ORDERED: ERGOCALCIFEROL 1,250 MCG (50,000 IU) CAPSULE PO SCH (08:00)
--- NOTE | 2023-05-20 14:29 | P.PN ---
Subjective Progress Note Date: 05/13/23 Principal diagnosis: Positive blood culture Patient is a 73-year-old female presented to the hospital for evaluation of increasing shortness of breath, patient also have a positive blood culture that was suspicious and positive UA probable infectious disease consultation On today's evaluation that is 05/13/2023, the patient is afebrile, the patient is currently breathing Comfortably on 3 L nasal cannula oxygen patient is lethargic not a good historian, no vomiting or diarrhea has been reported Objective - Vital Signs Vital signs: Vital Signs Temp 97.5 F L 05/13/23 03:50 Pulse 92 05/13/23 08:35 Resp 24 05/13/23 08:35 BP 106/72 05/13/23 08:35 Pulse Ox 93 L 05/13/23 08:35 FiO2 Intake & Output 05/12/23 05/13/23 05/13/23 18:59 06:59 18:59 Intake Total 702.677 103.61 Output Total 425 225 Balance 277.677 -121.39 Weight 40 kg Intake: IV 260 20 .9@20 240 Invasive Line 1 20 10 Invasive Line 2 10 Intake, IV Titration 262.677 83.61 Amount Diltiazem 125 mg In 14.083 Sodium Chloride 0.9% 100 ml @ 5 MG/HR 5 mls/hr IV .Q24H [facility] Rx#:[id number] Heparin Sod,Pork in 0.45% 148.594 83.61 NaCl 25,000 unit In 0.45 % NaCl 1 250ml.bag @ 12 UNITS/KG/HR 6.532 mls/hr IV .Q24H [facility] Rx#: [id number] Piperacillin-Tazobactam 3 100 .375 gm In Sodium Chloride 0.9% 100 ml @ 25 mls/hr IVPB Q8HR [facility] Rx# :[id number] Oral 180 Output: Urine 425 225 Other: Voiding Method Indwelling Catheter Indwelling Catheter - Exam GENERAL DESCRIPTION: An elderly female lying in bed in no distress RESPIRATORY SYSTEM: Unlabored breathing , decreased breath sounds at bases HEART: S1 S2 regular rate and rhythm , ABDOMEN: Soft , no tenderness EXTREMITIES: No edema feet - Labs CBC & Chem 7: 05/13/23 09:10 05/13/23 09:10 Labs: Abnormal Lab Results - Last 24 Hours (Table) 05/12/23 05/12/23 05/12/23 Range/Units 14:00 15:02 15:02 WBC 27.9 H (3.8-10.6) k/uL RBC 3.45 L (3.80-5.40) m/uL Hgb 10.7 L (11.4-16.0) gm/dL MCV (80.0-100.0) fL Plt Count 520 H (150-450) k/uL Neutrophils # (Manual) 22.80 H (1.3-7.7) k/uL Monocytes # (Manual) 1.67 H (0-1.0) k/uL Metamyelocytes # (Man) 0.28 H (0) k/uL APTT 81.5 H (22.0-30.0) sec Sodium 131 L (137-145) mmol/L Potassium 3.3 L (3.5-5.1) mmol/L Chloride 95 L (98-107) mmol/L BUN 31 H (7-17) mg/dL Creatinine 1.07 H (0.52-1.04) mg/dL Glucose 134 H (74-99) mg/dL Total Protein 6.1 L (6.3-8.2) g/dL Albumin 2.9 L (3.5-5.0) g/dL 05/13/23 05/13/23 Range/Units 09:10 09:10 WBC 33.4 H (3.8-10.6) k/uL RBC 3.34 L (3.80-5.40) m/uL Hgb 10.6 L (11.4-16.0) gm/dL MCV 102.8 H (80.0-100.0) fL Plt Count 521 H (150-450) k/uL Neutrophils # (Manual) (1.3-7.7) k/uL Monocytes # (Manual) (0-1.0) k/uL Metamyelocytes # (Man) (0) k/uL APTT (22.0-30.0) sec Sodium 133 L (137-145) mmol/L Potassium (3.5-5.1) mmol/L Chloride 96 L (98-107) mmol/L BUN 36 H (7-17) mg/dL Creatinine 1.14 H (0.52-1.04) mg/dL Glucose 118 H (74-99) mg/dL Total Protein 5.7 L (6.3-8.2) g/dL Albumin 2.7 L (3.5-5.0) g/dL Microbiology - Last 24 Hours (Table) 05/10/23 13:45 Blood Culture Gram Stain - Final Blood Blood Culture - Final Bacillus species Not Anthracis 05/10/23 13:50 Blood Culture - Preliminary Blood 05/10/23 11:57 Urine Culture - Preliminary Urine,Voided Gram Neg Bacilli Assessment and Plan (1) Positive blood culture Status: Acute Code(s): R78.81 - BACTEREMIA SNOMED Code(s): 998354145 (2) UTI (urinary tract infection) Status: Acute Code(s): N39.0 - URINARY TRACT INFECTION, SITE NOT SPECIFIED SNOMED Code(s): 74967086 Plan: 1patient with a positive blood culture with gram-positive bacilli which is more likely skin contamination in this patient presented to hospital with increasing shortness of breath and noticed to have a large left-sided effusion with compressive atelectasis and concern for possible parapneumonic effusion patient did have elevated white count however did not have any fever and no significant cough or sputum production 2-patient did have mild elevated creatinine high risk of nephrotoxicity from vancomycin and Zosyn combination 3-positive UA and urine culture showing gram-negative bacilli ID sensitivities pending 4-positive blood culture with gram-positive bacilli likely skin contamination 4Patient to continue on Zosyn and monitor clinical course closely Time with Patient: Less than 30
== END 2023-05-13 15:52 | disposition hospice, inpatient (51) | DRG 871 ==
LOC: EC 11:31 → 3SCARD 13:23
PROVIDERS: ADMIT Family Medicine; ATTEND Family Medicine
DX: A41.9 Sepsis, unspecified organism (principal); I50.31 Acute diastolic (congestive) heart failure; J96.01 Acute respiratory failure with hypoxia; I31.39 Other pericardial effusion (noninflammatory); C40.01 Malignant neoplasm of scapula and long bones of right upper limb; C78.02 Secondary malignant neoplasm of left lung; C78.01 Secondary malignant neoplasm of right lung; J91.0 Malignant pleural effusion; N39.0 Urinary tract infection, site not specified; J98.11 Atelectasis; I48.91 Unspecified atrial fibrillation; I11.0 Hypertensive heart disease with heart failure; J44.9 Chronic obstructive pulmonary disease, unspecified; Z66 Do not resuscitate; Z51.5 Encounter for palliative care; R59.0 Localized enlarged lymph nodes; D63.0 Anemia in neoplastic disease; F41.9 Anxiety disorder, unspecified; R54 Age-related physical debility; G89.4 Chronic pain syndrome; K21.9 Gastro-esophageal reflux disease without esophagitis; M19.90 Unspecified osteoarthritis, unspecified site; R32 Unspecified urinary incontinence; R33.9 Retention of urine, unspecified; M54.2 Cervicalgia; Z79.01 Long term (current) use of anticoagulants; Z79.891 Long term (current) use of opiate analgesic; Z79.899 Other long term (current) drug therapy; Z87.891 Personal history of nicotine dependence; Z87.311 Personal history of (healed) other pathological fracture; Z86.73 Personal history of transient ischemic attack (TIA), and cerebral infarction without residual deficits; Z96.82 Presence of neurostimulator; Z88.5 Allergy status to narcotic agent
CPT/HCPCS: 36415; 71046; 71250; 80048; 80053; 81001; 83605; 83735; 83880; 84484; 85025; 85379; 85610; 85730; 87040; 87077; 87086; 87186; 93005; 93306; 94760; 96365; 96366; 96368; 96375; 99291

== ENCOUNTER 2023-05-13 15:25 | Inpatient (IN) | payer MEDICAID ==
[2023-05-13] MEDS ORDERED: GLYCOPYRROLATE 0.2 MG/ML 2 ML VIAL IVP PRN (15:40)
[2023-05-13] MEDS ORDERED: ACETAMINOPHEN TAB 325 MG TAB PO PRN (15:40)
[2023-05-13] MEDS ORDERED: ONDANSETRON 4 MG/2 ML VIAL IVP PRN (15:40)
[2023-05-13] MEDS ORDERED: DRY MOUTH SPRAY 44.3 SPRAY/44.3 ML SPRAY MUCOUS MEM PRN (15:40)
[2023-05-13] MEDS ORDERED: ATROPINE OPHTH SOLN 1% 5ML BTL SUBLINGUAL PRN (15:40)
[2023-05-13] MEDS ORDERED: LORazepam 2 MG/ML INJ IV PRN (15:40)
[2023-05-13] MEDS ORDERED: SCOPOLAMINE 1 MG/72 HR PATCH TRANSDERM SCH (15:45)
[2023-05-13] MEDS ORDERED: SODIUM CHLORIDE 0.9% 1,000 ML IV SCH (15:45)
[2023-05-13] MEDS: MORPHINE SULFATE (100 MG/2 ML) 100 MG in SODIUM CHLORIDE 0.9% 100 ML IV SCH (16:25)
[2023-05-13 17:31] VITALS: BP 81/64
[2023-05-13] MEDS: MORPHINE SULFATE 4 MG/ML SYRINGE IV PRN ×2 (20:35→22:09)
[2023-05-14 04:04] VITALS: PULSE 86
[2023-05-14] MEDS: MORPHINE SULFATE (100 MG/2 ML) 100 MG in SODIUM CHLORIDE 0.9% 100 ML IV SCH (05:01)
[2023-05-14 06:13] VITALS: RESP 12
== END 2023-05-14 11:50 | disposition expired | DRG 951 ==
LOC: 3SCARD 16:01
PROVIDERS: ADMIT Family Medicine; ATTEND Family Medicine
DX: Z51.5 Encounter for palliative care (principal); C96.4 Sarcoma of dendritic cells (accessory cells); J90 Pleural effusion, not elsewhere classified; N39.0 Urinary tract infection, site not specified; R53.1 Weakness; R59.1 Generalized enlarged lymph nodes; G89.29 Other chronic pain; J44.9 Chronic obstructive pulmonary disease, unspecified; F41.9 Anxiety disorder, unspecified; I48.91 Unspecified atrial fibrillation; Z90.49 Acquired absence of other specified parts of digestive tract; Z88.5 Allergy status to narcotic agent